=== PATIENT | female | born 1960 | race Caucasian/White ===

== ENCOUNTER → 2018-07-02 15:31 | Outpatient (CLI) | payer OTHER, MEDICAID, SELFPAY ==
--- NOTE | 2018-07-02 15:33 | DI.RAD.S_ITS ---
PROCEDURE: XR ACUTE ABDOMEN SERIES INDICATIONS: abdominal pain TECHNIQUE: One view chest and two views of the abdomen were acquired. COMPARISON: [facility], CHEST 2 VIEW, 08/07/2009, 15:39. [facility], , CHEST 1 VIEW, 05/09/2013, 6:08. FINDINGS: Surgical changes and devices: None. Chest: Lungs are abnormal with a chronic mild interstitial prominence. Heart size is normal. No pleural effusions. No pneumoperitoneum. Abdomen: Bowel gas pattern is abnormal with generalized colonic obstipation is moderate in severity. No suspicious calcifications. Visualized solid organ contours appear normal. Bones: No suspicious bony lesions. IMPRESSION: Generalized colonic obstipation, moderate in severity, chronic mild interstitial prominence within the lung parenchyma. No sign of cardiomegaly. Dictated by: Maverick Maldonado M.D. on 07/02/2018 at 16:17 Approved by: Maverick Maldonado M.D. on 07/02/2018 at 16:18
[2018-07-02 16:08] LABS: Add Manual Diff / Slide Review NO; Basophils Absolute Auto 0 /uL (0-100); Basophils Percent Auto 0.5 % (0-2); Eosinophils Absolute Auto 300 /uL (0-450); Eosinophils Percent Auto 3.3 % (2-4); Hematocrit 41.4 % (36-46); Hemoglobin 13.8 g/dL (12.0-16.0); Lymphocytes Absolute Auto 2900 /uL (1100-4500); Lymphocytes Percent Auto 31.2 % (25-40); Mean Corpuscular HGB Conc 33.4 % (30-36); Mean Corpuscular Hemoglobin 31.3 PG (26-34); Mean Corpuscular Volume 93.9 fL (80-100); Monocytes Absolute Auto 600 /uL (0-900); Monocytes Percent Auto 6.1 % (3-14); Neutrophils Absolute Auto 5500 /uL (1500-7000); Neutrophils Percent Auto 58.9 % (50-75); Platelet Count 240 X10^3/uL (150-400); Red Blood Cell Count 4.41 X10^6/uL (4.0-5.2); Red Cell Distribution Width 14.8 % (11.6-14.8); White Blood Cell Count 9.3 X10^3/uL (4.5-11.0)
[2018-07-02 16:35] LABS: Alanine Aminotransferase 37 IU/L (9-52); Albumin 4.4 g/dL (3.5-5.0); Albumin Globulin Ratio 1.1 (1.0-2.8); Alkaline Phosphatase 121 U/L (38-126); Amylase 38 U/L (30-110); Aspartate Aminotransferase 36 IU/L (14-36); Bilirubin Total 0.1 mg/dL (0.2-1.3); Blood Urea Nitrogen 18 mg/dL (7-17); Calcium 9.6 mg/dL (8.4-10.2); Carbon Dioxide 30 mmol/L (22-32); Chloride 104 mmol/L (98-107); Estimated Glomerular Filt Rate 56.9 mL/min (>60); Globulin 4.1 g/dL (1.7-4.1); Glucose 128 mg/dL (70-100); HEMOLYSIS < 15 (0-50); Lipase 69 U/L (23-300); Potassium 4.3 mmol/L (3.4-5.1); Sodium 145 mmol/L (137-145); Total Protein 8.5 g/dL (6.3-8.2)
[2018-07-02 16:37] LABS: C-Reactive Protein Quant < 0.5 mg/dL (<1.0)
[2018-07-02 17:04] LABS: Erythrocyte Sedimentation Rate 46 MM/HR (0-20); TSH w/ Reflex to FT4 0.34 uIU/mL (0.47-4.68)
== END ==
PROVIDERS: PCP Internal Medicine; Visit Provider Internal Medicine
DX: R10.9 Unspecified abdominal pain (principal); K59.00 Constipation, unspecified; J84.9 Interstitial pulmonary disease, unspecified
CPT/HCPCS: 36415; 74022; 80053; 82150; 83690; 84439; 84443; 85025; 85651; 86140

== ENCOUNTER 2018-07-06 17:38 | Emergency (ER) | payer OTHER, MEDICAID, SELFPAY ==
[2018-07-06 17:50] VITALS: BP 104/73; PULSE 99; RESP 18; TEMP 38.8; O2SAT 91; BMI 22.6
--- NOTE | 2018-07-06 17:54 | DI.RAD.S_ITS ---
PROCEDURE: XR CHEST 2V INDICATIONS: fever, cough, exposure to Flu, smoker TECHNIQUE: 2 views of the chest were acquired. COMPARISON: [facility], , CHEST 1 VIEW, 05/09/2013, 6:08. [facility], , CHEST 2 VIEW, 06/05/2017, 10:27. FINDINGS: Surgical changes and devices: None. Lungs and pleura: No pleural effusions or pneumothorax. Lungs are clear. Mediastinum: Mediastinal contours are normal. Heart size is normal. Bones and chest wall: No suspicious bony abnormalities. Soft tissues appear unremarkable. IMPRESSION: No acute cardiopulmonary findings. Dictated by: Yuli Rivas M.D. on 07/06/2018 at 18:38 Approved by: Yuli Rivas M.D. on 07/06/2018 at 18:39
[2018-07-06 18:01] VITALS: TEMP 38.8
[2018-07-06] MEDS: ACETAMINOPHEN 325 MG TABLET 975 MG PO (18:01)
[2018-07-06 19:33] VITALS: BP 113/62; PULSE 73; RESP 14; TEMP 37.4; O2SAT 93
--- NOTE | 2018-07-06 19:40 | ED.FEVER ---
HPI - Fever <FAHAD Aguilar - Last Filed: 07/06/18 22:34> General Chief Complaint: Fever Stated Complaint: told to be checked for the flu Time Seen by Provider: 07/06/18 19:09 Source: patient Mode of arrival: ambulatory Limitations: no limitations History of Present Illness HPI Narrative: 58-year-old female with history COPD this is an everyday smoker here for complaint of cold and flu-like symptoms over the past 3 days. Her has been diagnosed with influenza and is admitted for supportive care. She reports that she has had fever and chills with cough nasal congestion headache and generalized malaise over the past 3 days. She is tolerating p.o. intake with no vomiting. She denies any stressors or relievers of her discomfort her symptoms. No other concerns or complaints Related Data Previous Rx's Medication Instructions Recorded gabapentin 600 mg tablet 900 mg PO TID #270 tab 11/06/17 hydrocodone 10 mg-acetaminophen 1 - 2 tab PO Q6HP PRN #240 tab 06/20/18 325 mg tablet lorazepam 1 mg tablet 1 - 2 mg PO QIDP PRN #180 tab 06/20/18 citalopram 40 mg tablet 40 mg PO QDAY #90 tab 06/22/18 Allergies Allergy/AdvReac Type Severity Reaction Status Date / Time No Known Drug Allergies Allergy Unknown Verified 07/06/18 17:53 [NO KNOWN DRUG ALLERGIES] Review of Systems <FAHAD Aguilar - Last Filed: 07/06/18 22:34> Constitutional Reports chills, Reports fever(s), Denies lethargy and Denies weakness Eyes Denies change in vision, Denies eye discharge, Denies irritation and Denies loss of vision ENT Ears, Nose, Mouth, and Throat: Reports nasal congestion, Reports nasal discharge and Denies throat swelling Cardiovascular Denies chest pain, Denies irregular heart rhythm, Denies lightheadedness, Denies palpitations and Denies orthopnea Respiratory Reports cough and Denies wheezing Gastrointestinal Gastrointestinal: Denies abdominal pain, Denies change in bowel habits, Denies diarrhea, Denies nausea and Denies vomiting Genitourinary Denies hematuria, Denies flank pain, Denies urinary incontinence and Denies urinary urgency Musculoskeletal Denies back pain, Denies muscle weakness, Denies numbness and Denies tingling Integumentary/Breasts Denies pruritus, Denies erythema, Denies rash and Denies wounds Neurologic Denies confusion, Denies loss of vision, Denies numbness, Denies tingling and Denies weakness Psychiatric Denies anxiety, Denies confusion, Denies depression, Denies homicidal ideation and Denies suicidal ideation Endocrine Denies palpitations Hematologic/Lymphatic Denies easy bruising Allergic/Immunologic Denies urticaria, Denies throat swelling and Denies wheezing Exam <FAHAD Aguilar - Last Filed: 07/06/18 22:34> Initial Vital Signs Initial Vital Signs: Vital Signs Temperature 101.8 F H 07/06/18 17:50 Pulse Rate 99 H 07/06/18 17:50 Respiratory Rate 18 07/06/18 17:50 Blood Pressure 104/73 07/06/18 17:50 Pulse Oximetry 91 07/06/18 17:50 Const General: cooperative and well developed Nutritional Appearance: well nourished Orientation: alert, awake, oriented x3 and not confused HENMT Mouth: oral mucosae normal and moist mucous membranes Throat: posterior oropharynx normal Eyes Conjunctivae: conjunctivae normal Sclera: sclerae normal Pupils: PERRL EOM: EOM intact bilaterally Neck Neck: normal visual inspection, trachea midline, No lymphadenopathy, No midline deformity and No JVD Lymphatic: No lymphedema Chest Chest: normal inspection of the chest Resp Effort & Inspection: normal respiratory effort, able to speak in complete sentences, no respiratory distress and no use of accessory muscles Auscultation: clear to auscultation bilaterally, no rales, no rhonchi and no wheezes Cardio Rate: regular rate Rhythm: regular rhythm Heart Sounds: no click, no gallops, no murmurs and no rubs Pulses: normal peripheral pulses Skin General: no rashes or lesions noted, No jaundice and No petechiae Neuro General: alert, oriented x3, gait normal and no focal motor deficits Speech: speech normal <Ava Salazar DO - Last Filed: 07/07/18 04:06> Initial Vital Signs Initial Vital Signs: Vital Signs Temperature 101.8 F H 07/06/18 17:50 Pulse Rate 99 H 07/06/18 17:50 Respiratory Rate 18 07/06/18 17:50 Blood Pressure 104/73 07/06/18 17:50 Pulse Oximetry 91 07/06/18 17:50 Course <FAHAD Aguilar - Last Filed: 07/06/18 22:34> Orders Ordered: Discontinued Medications Acetaminophen (Tylenol) 975 mg PO NOW ONE Stop: 07/06/18 17:56 Last Admin: 07/06/18 18:01 Dose: 975 mg Vital Signs - 8 hr 07/06/18 17:50 07/06/18 18:01 07/06/18 19:33 Temperature 101.8 F H 102 F H 99.4 F Pulse Rate 99 H 73 Respiratory Rate 18 14 Blood Pressure 104/73 Blood Pressure [Left Arm] 113/62 Pulse Oximetry 91 93 <Ava Salazar DO - Last Filed: 07/07/18 04:06> Orders Ordered: Discontinued Medications Acetaminophen (Tylenol) 975 mg PO NOW ONE Stop: 07/06/18 17:56 Last Admin: 07/06/18 18:01 Dose: 975 mg Vital Signs - 8 hr 07/06/18 17:50 07/06/18 18:01 07/06/18 19:33 Temperature 101.8 F H 102 F H 99.4 F Pulse Rate 99 H 73 Respiratory Rate 18 14 Blood Pressure 104/73 Blood Pressure [Left Arm] 113/62 Pulse Oximetry 91 93 MDM - Fever <FAHAD Aguilar - Last Filed: 07/06/18 22:34> Lab Data Lab Results 07/06/18 Range/Units 17:56 Influenza A & B (PCR) Positive, type a A (Negative) Imaging Data Chest x-ray: Radiologist's impression: [address] [address] XRay Report Signed Patient: Jacquelyn Dotson JMR#: [id number] : 1960Acct:[id number] Age/Sex: 58 / FDate of Service: 07/06/18 Loc: ED Accession Number: [id number] Procedure: XR chest 2V Ordering Provider: David Garcia D.O. PROCEDURE: XR CHEST 2V INDICATIONS: fever, cough, exposure to Flu, smoker TECHNIQUE: 2 views of the chest were acquired. COMPARISON: [facility], CHEST 1 VIEW, 05/09/2013, 6:08. [facility], CHEST 2 VIEW, 06/05/2017, 10:27. FINDINGS: Surgical changes and devices: None. Lungs and pleura: No pleural effusions or pneumothorax. Lungs are clear. Mediastinum: Mediastinal contours are normal. Heart size is normal. Bones and chest wall: No suspicious bony abnormalities. Soft tissues appear unremarkable. IMPRESSION: No acute cardiopulmonary findings. Dictated by: Yuli Rivas M.D. on 07/06/2018 at 18:38 Approved by: Yuli Rivas M.D. on 07/06/2018 at 18:39 [facility] Narrative Medical decision making narrative: Chest x-ray was obtained was negative for any acute findings. Influenza swab was obtained and is positive for flu A. Her vital signs were stable. Patient no acute distress with normal exam. Patient is 3 days past started symptoms Tamiflu is not indicated at this time. Supportive care of plenty of fluids and rest Tylenol Motrin as needed for any discomfort. Saline irrigation or hot showers to help with congestion follow up with primary care provider in 1 week. Return emergency room for worsening symptoms. <Ava Salazar DO - Last Filed: 07/07/18 04:06> Lab Data Lab Results 07/06/18 Range/Units 17:56 Influenza A & B (PCR) Positive, type a A (Negative) Discharge Plan Departure Patient Disposition: Home Clinical Impression: Influenza A Discharge Date/Time: 07/06/18 20:15 Interventions: ED Discharge Assessment Last Done: 07/06/18 20:15 Instructions: DI for Influenza -- Adult Activity Restrictions/Additional Instructions: Chest x-ray was obtained was negative for any acute findings. Influenza swab was obtained was positive for influenza A. Supportive care with plenty of fluids and rest. [id number] Tylenol or Motrin as needed for discomfort. Saline irrigation to nasal passages to help with congestion may also use hot showers. Follow up with her primary care provider 1 week. Return emergency room for any worsening symptoms. Prescriptions: No Action gabapentin [Neurontin] 600 mg tablet 900 mg PO TID Qty: 270 RF: 3 hydrocodone-acetaminophen 10-325 mg tablet 1 - 2 tab PO Q6HP PRN (Reason: pain) Qty: 240 RF: 0 lorazepam 1 mg tablet 1 - 2 mg PO QIDP PRN (Reason: anxiety) Qty: 180 RF: 0 citalopram 40 mg tablet 40 mg PO QDAY Qty: 90 RF: 0 Referrals: Kamaljit Frankel MD [Primary Care Provider] - <Ava Salazar DO - Last Filed: 07/07/18 04:06> Cosign ED Attending Maribethature Attestation: I was immediately available in the department for consultation. Documentation has been reviewed. I agree with assessment and plan.
[2018-07-06 20:00] VITALS: BP 104/73; PULSE 73; RESP 14; TEMP 37.4; O2SAT 93; BMI 22.6
--- NOTE | 2018-07-06 20:00 | ED_ITS ---
HPI - Fever <FAHAD Aguilar - Last Filed: 07/06/18 22:34> General Chief Complaint: Fever Stated Complaint: told to be checked for the flu Time Seen by Provider: 07/06/18 19:09 Source: patient Mode of arrival: ambulatory Limitations: no limitations History of Present Illness HPI Narrative: 58-year-old female with history COPD this is an everyday smoker here for complaint of cold and flu-like symptoms over the past 3 days. Her has been diagnosed with influenza and is admitted for supportive care. She reports that she has had fever and chills with cough nasal congestion headache and generalized malaise over the past 3 days. She is tolerating p.o. intake with no vomiting. She denies any stressors or relievers of her discomfort her symptoms. No other concerns or complaints Related Data Previous Rx's Medication Instructions Recorded gabapentin 600 mg tablet 900 mg PO TID #270 tab 11/06/17 hydrocodone 10 mg-acetaminophen 1 - 2 tab PO Q6HP PRN #240 tab 06/20/18 325 mg tablet lorazepam 1 mg tablet 1 - 2 mg PO QIDP PRN #180 tab 06/20/18 citalopram 40 mg tablet 40 mg PO QDAY #90 tab 06/22/18 Allergies Allergy/AdvReac Type Severity Reaction Status Date / Time No Known Drug Allergies Allergy Unknown Verified 07/06/18 17:53 [NO KNOWN DRUG ALLERGIES] Review of Systems <FAHAD Aguilar - Last Filed: 07/06/18 22:34> Constitutional Reports chills, Reports fever(s), Denies lethargy and Denies weakness Eyes Denies change in vision, Denies eye discharge, Denies irritation and Denies loss of vision ENT Ears, Nose, Mouth, and Throat: Reports nasal congestion, Reports nasal discharge and Denies throat swelling Cardiovascular Denies chest pain, Denies irregular heart rhythm, Denies lightheadedness, Denies palpitations and Denies orthopnea Respiratory Reports cough and Denies wheezing Gastrointestinal Gastrointestinal: Denies abdominal pain, Denies change in bowel habits, Denies diarrhea, Denies nausea and Denies vomiting Genitourinary Denies hematuria, Denies flank pain, Denies urinary incontinence and Denies urinary urgency Musculoskeletal Denies back pain, Denies muscle weakness, Denies numbness and Denies tingling Integumentary/Breasts Denies pruritus, Denies erythema, Denies rash and Denies wounds Neurologic Denies confusion, Denies loss of vision, Denies numbness, Denies tingling and Denies weakness Psychiatric Denies anxiety, Denies confusion, Denies depression, Denies homicidal ideation and Denies suicidal ideation Endocrine Denies palpitations Hematologic/Lymphatic Denies easy bruising Allergic/Immunologic Denies urticaria, Denies throat swelling and Denies wheezing Exam <FAHAD Aguilar - Last Filed: 07/06/18 22:34> Initial Vital Signs Initial Vital Signs: Vital Signs Temperature 101.8 F H 07/06/18 17:50 Pulse Rate 99 H 07/06/18 17:50 Respiratory Rate 18 07/06/18 17:50 Blood Pressure 104/73 07/06/18 17:50 Pulse Oximetry 91 07/06/18 17:50 Const General: cooperative and well developed Nutritional Appearance: well nourished Orientation: alert, awake, oriented x3 and not confused HENMT Mouth: oral mucosae normal and moist mucous membranes Throat: posterior oropharynx normal Eyes Conjunctivae: conjunctivae normal Sclera: sclerae normal Pupils: PERRL EOM: EOM intact bilaterally Neck Neck: normal visual inspection, trachea midline, No lymphadenopathy, No midline deformity and No JVD Lymphatic: No lymphedema Chest Chest: normal inspection of the chest Resp Effort & Inspection: normal respiratory effort, able to speak in complete sentences, no respiratory distress and no use of accessory muscles Auscultation: clear to auscultation bilaterally, no rales, no rhonchi and no wheezes Cardio Rate: regular rate Rhythm: regular rhythm Heart Sounds: no click, no gallops, no murmurs and no rubs Pulses: normal peripheral pulses Skin General: no rashes or lesions noted, No jaundice and No petechiae Neuro General: alert, oriented x3, gait normal and no focal motor deficits Speech: speech normal <Ava Salazar DO - Last Filed: 07/07/18 04:06> Initial Vital Signs Initial Vital Signs: Vital Signs Temperature 101.8 F H 07/06/18 17:50 Pulse Rate 99 H 07/06/18 17:50 Respiratory Rate 18 07/06/18 17:50 Blood Pressure 104/73 07/06/18 17:50 Pulse Oximetry 91 07/06/18 17:50 Course <FAHAD Aguilar - Last Filed: 07/06/18 22:34> Orders Ordered: Discontinued Medications Acetaminophen (Tylenol) 975 mg PO NOW ONE Stop: 07/06/18 17:56 Last Admin: 07/06/18 18:01 Dose: 975 mg Vital Signs - 8 hr 07/06/18 17:50 07/06/18 18:01 07/06/18 19:33 Temperature 101.8 F H 102 F H 99.4 F Pulse Rate 99 H 73 Respiratory Rate 18 14 Blood Pressure 104/73 Blood Pressure [Left Arm] 113/62 Pulse Oximetry 91 93 <Ava Salazar DO - Last Filed: 07/07/18 04:06> Orders Ordered: Discontinued Medications Acetaminophen (Tylenol) 975 mg PO NOW ONE Stop: 07/06/18 17:56 Last Admin: 07/06/18 18:01 Dose: 975 mg Vital Signs - 8 hr 07/06/18 17:50 07/06/18 18:01 07/06/18 19:33 Temperature 101.8 F H 102 F H 99.4 F Pulse Rate 99 H 73 Respiratory Rate 18 14 Blood Pressure 104/73 Blood Pressure [Left Arm] 113/62 Pulse Oximetry 91 93 MDM - Fever <FAHAD Aguilar - Last Filed: 07/06/18 22:34> Lab Data Lab Results 07/06/18 Range/Units 17:56 Influenza A & B (PCR) Positive, type a A (Negative) Imaging Data Chest x-ray: Radiologist's impression: [address] [address] XRay Report Signed Patient: Jacquelyn Dotson JMR#: [id number] : 1960Acct:[id number] Age/Sex: 58 / FDate of Service: 07/06/18 Loc: ED Accession Number: [id number] Procedure: XR chest 2V Ordering Provider: David Garcia D.O. PROCEDURE: XR CHEST 2V INDICATIONS: fever, cough, exposure to Flu, smoker TECHNIQUE: 2 views of the chest were acquired. COMPARISON: [facility], CHEST 1 VIEW, 05/09/2013, 6:08. [facility], CHEST 2 VIEW, 06/05/2017, 10:27. FINDINGS: Surgical changes and devices: None. Lungs and pleura: No pleural effusions or pneumothorax. Lungs are clear. Mediastinum: Mediastinal contours are normal. Heart size is normal. Bones and chest wall: No suspicious bony abnormalities. Soft tissues appear unremarkable. IMPRESSION: No acute cardiopulmonary findings. Dictated by: Yuli Rivas M.D. on 07/06/2018 at 18:38 Approved by: Yuli Rivas M.D. on 07/06/2018 at 18:39 [facility] Narrative Medical decision making narrative: Chest x-ray was obtained was negative for any acute findings. Influenza swab was obtained and is positive for flu A. Her vital signs were stable. Patient no acute distress with normal exam. Patient is 3 days past started symptoms Tamiflu is not indicated at this time. Supportive care of plenty of fluids and rest Tylenol Motrin as needed for any discomfort. Saline irrigation or hot showers to help with congestion follow up with primary care provider in 1 week. Return emergency room for worsening symptoms. <Ava Salazar DO - Last Filed: 07/07/18 04:06> Lab Data Lab Results 07/06/18 Range/Units 17:56 Influenza A & B (PCR) Positive, type a A (Negative) Discharge Plan Departure Patient Disposition: Home Clinical Impression: Influenza A Discharge Date/Time: 07/06/18 20:15 Interventions: ED Discharge Assessment Last Done: 07/06/18 20:15 Instructions: DI for Influenza -- Adult Activity Restrictions/Additional Instructions: Chest x-ray was obtained was negative for any acute findings. Influenza swab was obtained was positive for influenza A. Supportive care with plenty of fluids and rest. [id number] Tylenol or Motrin as needed for discomfort. Saline irrigation to nasal passages to help with congestion may also use hot showers. Follow up with her primary care provider 1 week. Return emergency room for any worsening symptoms. Prescriptions: No Action gabapentin [Neurontin] 600 mg tablet 900 mg PO TID Qty: 270 RF: 3 hydrocodone-acetaminophen 10-325 mg tablet 1 - 2 tab PO Q6HP PRN (Reason: pain) Qty: 240 RF: 0 lorazepam 1 mg tablet 1 - 2 mg PO QIDP PRN (Reason: anxiety) Qty: 180 RF: 0 citalopram 40 mg tablet 40 mg PO QDAY Qty: 90 RF: 0 Referrals: Kamaljit Frankel MD [Primary Care Provider] - <Ava Salazar DO - Last Filed: 07/07/18 04:06> Cosign ED Attending Maribethature Attestation: I was immediately available in the department for consultation. Documentation has been reviewed. I agree with assessment and plan.
== END 2018-07-06 20:15 | disposition home or self-care (01) ==
PROVIDERS: Emergency Medicine; Emergency Provider Nurse Practitioner Family; Family Provider Internal Medicine; PCP Internal Medicine
DX: J10.1 Influenza due to other identified influenza virus with other respiratory manifestations (principal)
CPT/HCPCS: 71046; 87400; 99283; 99284

== ENCOUNTER 2019-01-11 07:44 | Inpatient (IN) | payer OTHER, MEDICAID, SELFPAY ==
[2019-01-11] VITALS (24 sets, daily range): BP systolic 102–125; BP diastolic 45–90; PULSE 75–90; RESP 11–21; TEMP 27.3–36.9; O2SAT 87–100; BMI 24.3; BMI 23.5
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
[2019-01-11 07:56] LABS: Add Manual Diff / Slide Review NO; Basophils Absolute Auto 100 /uL (0-100); Basophils Percent Auto 0.6 % (0-2); Eosinophils Absolute Auto 500 /uL (0-450); Eosinophils Percent Auto 6.1 % (2-4); Hematocrit 41.6 % (36-46); Hemoglobin 14.1 g/dL (12.0-16.0); Lymphocytes Absolute Auto 3200 /uL (1100-4500); Lymphocytes Percent Auto 37.9 % (25-40); Mean Corpuscular HGB Conc 33.8 % (30-36); Mean Corpuscular Hemoglobin 31.3 PG (26-34); Mean Corpuscular Volume 92.6 fL (80-100); Monocytes Absolute Auto 800 /uL (0-900); Neutrophils Absolute Auto 3800 /uL (1500-7000); Neutrophils Percent Auto 45.4 % (50-75); Platelet Count 228 X10^3/uL (150-400); Red Blood Cell Count 4.49 X10^6/uL (4.0-5.2); Red Cell Distribution Width 14.1 % (11.6-14.8); White Blood Cell Count 8.4 X10^3/uL (4.5-11.0)
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
[2019-01-11 08:05] LABS: Acetaminophen 15 ug/mL (10-30); Alanine Aminotransferase 19 IU/L (9-52); Albumin 4.7 g/dL (3.5-5.0); Alkaline Phosphatase 141 U/L (38-126); Aspartate Aminotransferase 34 IU/L (14-36); BUN Creatinine Ratio 8.9 (6-22); Bilirubin Total 0.4 mg/dL (0.2-1.3); Bilirubin Unconjugated 0.2 mg/dL (0.0-1.1); Blood Urea Nitrogen 16 mg/dL (7-17); Calcium 10.1 mg/dL (8.4-10.2); Carbon Dioxide 35 mmol/L (22-32); Chloride 101 mmol/L (98-107); Estimated Glomerular Filt Rate 28.9 mL/min (>60); Ethanol (ETOH) < 10 mg/dL; Globulin 4.8 g/dL (1.7-4.1); Glucose 106 mg/dL (70-100); HEMOLYSIS < 15 (0-50); Potassium 4.1 mmol/L (3.4-5.1); Salicylate < 1.0 mg/dL (<20); Sodium 145 mmol/L (137-145); Total Protein 9.5 g/dL (6.3-8.2)
[2019-01-11] MEDS: ALBUTEROL/IPRATROPIUM 3 ML AMPUL INH ×3 (08:08→20:44)
[2019-01-11] MEDS: ALBUTEROL 2.5 MG/3 ML NEB (ADULT) INH ×3 (08:23→16:46)
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
[2019-01-11] MEDS: methylPREDNISolone 125 MG/2 ML VIAL IV (08:53)
[2019-01-11] MEDS: SODIUM CHLORIDE 0.9% 1,000 ML 1000 ML IV (09:06)
[2019-01-11 09:16] LABS: Fractionated Inspired Oxygen 0.26; HCO3 ABG 33 mmol/L (22-26); Oxygen Saturation ABG 89 % (95-100); PO2 ABG 65 mmHg (80-100); TCO2 ABG 35 mmol/L (21-31)
[2019-01-11 10:01] LABS: Urine Amphetamines Negative (Negative); Urine Barbiturates Negative (Negative); Urine Benzodiazepines Positive (Negative); Urine Cocaine Negative (Negative); Urine MDMA Negative (Negative); Urine Methadone Negative (Negative); Urine Methamphetamines Negative (Negative); Urine Morphine/Opi cutoff 2000 Positive (Negative); Urine Oxycodone Positive (Negative); Urine Phencyclidine Negative (Negative); Urine Tetrahydrocannabinol Negative (Negative); Urine Tricyclic Antidepressant Negative (Negative)
[2019-01-11 10:49] LABS: Creatine Kinase 134 U/L (30-135); Magnesium 2.2 mg/dL (1.6-2.3)
[2019-01-11 11:00] LABS: Troponin I < 0.012 ng/mL (0.01-0.034)
[2019-01-11 11:04] LABS: Creatine Kinase MB 1.31 ng/mL (<2.37)
[2019-01-11 11:08] LABS: Procalcitonin < 0.05 ng/mL (<0.5)
[2019-01-11 11:10] LABS: B Type Natriuretic Peptide < 100 (<100)
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
[2019-01-11 13:34] LABS: Bacteria Urine None Seen; RBC Urine None Seen (0-5/HPF); WBC Urine None Seen (0-5/HPF)
[2019-01-11 13:48] LABS: Squamous Epithelial Cell Urine 0-1 /HPF (0-5/HPF)
[2019-01-11 13:49] LABS: Culture Indicated Urine Cult Not Indicated; Hyaline Casts Urine 1-5/LPF
[2019-01-11] MEDS: AZITHROMYCIN 500 MG in DEXTROSE 5% IN WATER 250 ML IV (13:56)
[2019-01-11] MEDS: CITALOPRAM 20 MG TABLET 40 MG PO (13:56)
[2019-01-11] MEDS: DEXTROSE 5%-0.45% NS 1,000 ML 100 ML IV (13:56)
[2019-01-11] MEDS: GABAPENTIN 300 MG CAPSULE 900 MG PO (13:57)
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
[2019-01-11 15:29] LABS: pH ABG 7.25 (7.35-7.45)
[2019-01-11 15:30] LABS: PCO2 ABG 59.1 mmHg (35-45)
[2019-01-11 15:31] LABS: HCO3 ABG 26 mmol/L (22-26); Oxygen Saturation ABG 94 % (95-100); PO2 ABG 83 mmHg (80-100); TCO2 ABG 27 mmol/L (21-31)
[2019-01-11 15:32] LABS: Fractionated Inspired Oxygen 29
[2019-01-11] MEDS: BECLOMETHASONE 80 MCG INH 10.6 GM 2 PUFF INH (16:46)
[2019-01-11] MEDS: methylPREDNISolone 125 MG/2 ML VIAL 60 MG IV (18:20)
[2019-01-12] VITALS (26 sets, daily range): BP systolic 99–156; BP diastolic 45–93; PULSE 68–96; RESP 12–27; TEMP 30.8–37.4; O2SAT 75–99
[2019-01-12] MEDS: methylPREDNISolone 125 MG/2 ML VIAL 60 MG IV ×5 (00:03→23:46)
[2019-01-12] MEDS: DEXTROSE 5%-0.45% NS 1,000 ML 100 ML IV (00:58)
[2019-01-12 05:10] LABS: Add Manual Diff / Slide Review NO; Basophils Absolute Auto 100 /uL (0-100); Eosinophils Absolute Auto 0 /uL (0-450); Eosinophils Percent Auto 0.1 % (2-4); Hematocrit 36.9 % (36-46); Hemoglobin 12.3 g/dL (12.0-16.0); Lymphocytes Absolute Auto 1200 /uL (1100-4500); Lymphocytes Percent Auto 12.5 % (25-40); Mean Corpuscular HGB Conc 33.3 % (30-36); Mean Corpuscular Hemoglobin 30.9 PG (26-34); Mean Corpuscular Volume 92.9 fL (80-100); Monocytes Absolute Auto 200 /uL (0-900); Monocytes Percent Auto 1.7 % (3-14); Neutrophils Absolute Auto 8000 /uL (1500-7000); Neutrophils Percent Auto 84.7 % (50-75); Platelet Count 183 X10^3/uL (150-400); Red Blood Cell Count 3.97 X10^6/uL (4.0-5.2); Red Cell Distribution Width 14.1 % (11.6-14.8); White Blood Cell Count 9.4 X10^3/uL (4.5-11.0)
[2019-01-12 05:20] LABS: BUN Creatinine Ratio 14.4 (6-22); Blood Urea Nitrogen 13 mg/dL (7-17); Calcium 9.6 mg/dL (8.4-10.2); Carbon Dioxide 30 mmol/L (22-32); Chloride 107 mmol/L (98-107); Estimated Glomerular Filt Rate > 60.0 mL/min (>60); Glucose 178 mg/dL (70-100); HEMOLYSIS < 15 (0-50); Potassium 3.8 mmol/L (3.4-5.1); Sodium 143 mmol/L (137-145)
[2019-01-12] MEDS: ALBUTEROL/IPRATROPIUM 3 ML AMPUL INH ×3 (05:58→19:44)
[2019-01-12] MEDS: BECLOMETHASONE 80 MCG INH 10.6 GM 2 PUFF INH ×2 (07:55→19:44)
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
[2019-01-12] MEDS: CITALOPRAM 20 MG TABLET 40 MG PO (09:10)
[2019-01-12] MEDS: GABAPENTIN 300 MG CAPSULE 900 MG PO ×2 (09:10→19:57)
[2019-01-12] MEDS: MAGNESIUM HYDROXIDE 30 ML UDC PO (09:11)
[2019-01-12] MEDS: ENOXAPARIN 30 MG/0.3 ML SYRINGE SUBCUT (09:11)
--- NOTE | 2019-01-12 12:06 | PC.NURSE ---
Received pt resting in bed on bipap. Awakens to verbal stimuli for assessment. Transitioned to 2L NC in order for pt to eat breakfast and take AM meds. Pt ate a few bites of fruit and swallowed pills whole with water no problem. SBA to BSC. 1000 placed back on bipap as pt was drowsy. Pt tolerated bipap for about 15 minutes but then began picking at mask and frequently readjusting. Attempted to reposition mask and loosen straps but ineffective in helping pt better tolerate bipap. Placed pt on O2 2L NC and notified RT. RT obtained an ABG per protocol after pt on 2L for 1 hour and 20 min (see labs). Pt is drowsy but easily awakens to verbal stimuli and answering orientation questions appropriately with clear speech. Will monitor.
[2019-01-12 12:09] LABS: Fractionated Inspired Oxygen 28; HCO3 ABG 29 mmol/L (22-26); Oxygen Saturation ABG 91 % (95-100); PCO2 ABG 43.6 mmHg (35-45); PO2 ABG 60 mmHg (80-100); TCO2 ABG 31 mmol/L (21-31); pH ABG 7.44 (7.35-7.45)
[2019-01-12] MEDS: AZITHROMYCIN 500 MG in DEXTROSE 5% IN WATER 250 ML IV (13:17)
[2019-01-12] MEDS: ACETAMINOPHEN 325 MG TABLET 650 MG PO ×2 (13:29→23:09)
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
--- NOTE | 2019-01-12 17:15 | PC.NURSE ---
Addendum entered by Maty Leblanc R.N. 01/12/19 17:54: 1750 - Daughter called back this nurse. Stated that when she was talking on the phone to the patient just now that she asked the patient how many lorazepam she had taken to which the patient did not answer. Then she stated to the patient You can't do that. Per the daughter the patient responded I can if I don't want to be here anymore. Dr. Barone updated on patient's statements to daughter. Placed patient on suicide precautions including 1:1. Coordinator updated. Original Note: [id number] - probation and parole officer Talisha arrived to unit to do a welfare check on patient. Stated that they had received a call from the patient's family member with about a possibly suicidal message they had received from the patient on Monday. Patient agreeingly talked to combatant diver officer. Denied any suicidal thoughts to officer and stated that she does not remember anything from yesterday. After officer left the patient's daughter, Briana, called the unit and inquired about patient. Before talking with daughter this nurse clarified with patient that daughter may receive information about her. Updated daughter on patient's status. Daughter stated that she had received a message from the patient on monday stating goodbye my sweet daughter and grandaughter, I don't know how long I can continue. Patient then talked with daughter as well. Dr. Barone updated on all of this information. Stated to make sure that patient has a social service consult. Discussed suicide precautions with Dr. Barone. Physician stated that a constant 1:1 observation was not required at this time. Patient remains ICU status.
--- NOTE | 2019-01-12 18:10 | RT ---
Patient just put on 1:1 for suicidal ideations. Withdrawn and turned away from door. Declining breathing treatment at this time but may take later with her Qvar at 2100.
[2019-01-13] VITALS (9 sets, daily range): BP systolic 126–152; BP diastolic 67–79; PULSE 51–80; RESP 12–18; TEMP 36.6–37.1; O2SAT 92–98
[2019-01-13 05:23] LABS: Add Manual Diff / Slide Review NO; Basophils Absolute Auto 0 /uL (0-100); Basophils Percent Auto 0.2 % (0-2); Eosinophils Absolute Auto 0 /uL (0-450); Hematocrit 37.9 % (36-46); Hemoglobin 12.8 g/dL (12.0-16.0); Lymphocytes Absolute Auto 1400 /uL (1100-4500); Lymphocytes Percent Auto 7.6 % (25-40); Mean Corpuscular HGB Conc 33.7 % (30-36); Mean Corpuscular Hemoglobin 30.7 PG (26-34); Monocytes Absolute Auto 400 /uL (0-900); Monocytes Percent Auto 2.3 % (3-14); Neutrophils Absolute Auto 16500 /uL (1500-7000); Neutrophils Percent Auto 89.9 % (50-75); Platelet Count 220 X10^3/uL (150-400); Red Blood Cell Count 4.16 X10^6/uL (4.0-5.2); Red Cell Distribution Width 14.6 % (11.6-14.8)
[2019-01-13 05:28] LABS: White Blood Cell Count 18.3 X10^3/uL (4.5-11.0)
[2019-01-13 05:31] LABS: Alanine Aminotransferase 22 IU/L (9-52); Albumin 4.1 g/dL (3.5-5.0); Alkaline Phosphatase 115 U/L (38-126); Aspartate Aminotransferase 27 IU/L (14-36); BUN Creatinine Ratio 22.2 (6-22); Bilirubin Total 0.3 mg/dL (0.2-1.3); Blood Urea Nitrogen 20 mg/dL (7-17); Calcium 10.3 mg/dL (8.4-10.2); Carbon Dioxide 31 mmol/L (22-32); Chloride 110 mmol/L (98-107); Estimated Glomerular Filt Rate > 60.0 mL/min (>60); Glucose 138 mg/dL (70-100); HEMOLYSIS < 15 (0-50); Sodium 146 mmol/L (137-145); Total Protein 8.1 g/dL (6.3-8.2)
[2019-01-13] MEDS: SODIUM CHLORIDE 0.9% FLUSH 10 ML IV (06:03)
[2019-01-13] MEDS: methylPREDNISolone 125 MG/2 ML VIAL 60 MG IV (06:03)
[2019-01-13] MEDS: BECLOMETHASONE 80 MCG INH 10.6 GM 2 PUFF INH ×2 (09:12→18:08)
[2019-01-13] MEDS: ALBUTEROL 2.5 MG/3 ML NEB (ADULT) INH (09:12)
[2019-01-13] MEDS: ENOXAPARIN 40 MG/0.4 ML SYRINGE SUBCUT (09:22)
[2019-01-13] MEDS: GABAPENTIN 300 MG CAPSULE 900 MG PO ×3 (09:22→21:01)
[2019-01-13] MEDS: CITALOPRAM 20 MG TABLET 40 MG PO (09:23)
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
--- NOTE | 2019-01-13 10:49 | P.PN_ITS ---
Subjective Date Patient Seen: 01/13/19 Time Patient Seen: 10:47 Interval history: Patient seen and evaluated. He yesterday afternoon patient made comments to daughter living in another state about suicidal ideations and thoughts and feelings of hopelessness. This was brought to the attention to the nurse after the daughter called here. Patient currently denies any suicidality problems as far as that goes intent to harm herself or others. Patient does say she has a longstanding history of depression. She currently had a break-up with partner. She does not really want us to have contact with her family. She is currently on precautions for suicidality. As far as mental status goes much improved. Coherent history at this time point. She states she feels fine. She states that she does not have any suicidal ideations. She is not sure what she texted her daughter and why her daughter would be concerned about her mental health. She has no concerns right now. She says she has depression. But she is not suicidal she does not want to harm herself or others she denies taking any medication to harm herself that caused hospital admission. As far as her breathing goes. She still has a cough. She still has increased work of breathing. Exam Vital Signs (past 8 hours): - 01/13/19 04:49 01/13/19 08:00 01/13/19 09:13 Temperature 98.2 F 97.9 F Pulse Rate 58 L 76 80 Respiratory Rate 12 16 12 Blood Pressure 138/67 152/79 H Pulse Oximetry 95 95 96 Fraction of Inspired Oxygen 0.30 Oxygen Delivery Method Room Air Oxygen Flow Rate 1 Narrative Exam Narrative: Gen.: Alert oriented HEENT: Pupils equal round and reactive or mucosa is moist Cardio: S1-S2 regular rate and rhythm no murmurs appreciated. Respiratory: Increased work of breathing. Bilateral scattered inspiratory and expiratory wheezes Abdomen: Soft nontender no rebound or guarding no liver spleen enlargement no appreciable hernias Extremities: Full range of motion no appreciable weakness no cyanosis or edema. Neurologic: Grossly intact. Objective Labs Result Diagrams: 01/13/19 04:43 01/13/19 04:43 Labs: Laboratory Results - last 24 hr 01/12/19 01/13/19 01/13/19 11:40 04:43 04:43 WBC 18.3 H D RBC 4.16 Hgb 12.8 Hct 37.9 MCV 91.0 MCH 30.7 MCHC 33.7 RDW 14.6 Plt Count 220 Neut % (Auto) 89.9 H Lymph % (Auto) 7.6 L [place] % (Auto) 2.3 L Eos % (Auto) 0.0 L Baso % (Auto) 0.2 Neut # (Auto) 32815 H Lymph # (Auto) 1400 [place] # (Auto) 400 Eos # (Auto) 0 Baso # (Auto) 0 ABG pH 7.44 ABG pCO2 43.6 ABG pO2 60 L ABG HCO3 29 H ABG Total CO2 31 ABG O2 Saturation 91 L ABG Base Excess 5.0 H FiO2 28 Sodium 146 H Potassium 4.0 Chloride 110 H Carbon Dioxide 31 BUN 20 H Creatinine 0.90 Estimated GFR > 60.0 BUN/Creatinine Ratio 22.2 H Glucose 138 H Calcium 10.3 H Total Bilirubin 0.3 AST 27 ALT 22 Alkaline Phosphatase 115 Total Protein 8.1 Albumin 4.1 Globulin 4.0 Albumin/Globulin Ratio 1.0 Assessment & Plan Assessment & Plan narrative: Altered mental status with somnolence. Consistent with encephalopathy due to underlying narcotics and benzodiazepines. Patient's mental status is back at baseline. Possible suicidality. Patient denies any symptoms of suicidal ideations thoughts. Has a history of depression. Daughter reported her that she sent her a text staying that she was suicidal. At this point patient denies any symptoms at all whatsoever says she is fine she would not harm herself or others. She is currently on precautions as far as this goes. We will provide and obtain a behavioral health consultation. Acute respiratory failure. Patient's O2 sub stabilized. Last ABG was back to normal. Mildly hypoxic still. On and off of oxygen via nasal cannula. Acute kidney injury. Resolved. COPD with acute exacerbation. Improving. Will place her on oral steroids. Oral antibiotics continue with nebulizers. Hopefully in the next 24 hours her lung status will improve enough that she could potentially be discharge barring any concerns with mental health. Chronic pain syndrome. Pain medication on hold at this point.. Depression. Patient on citalopram. Continue with current antidepressants. Question concerns due to her underlying mental health about suicidality behavioral health evaluation. Disposition and plan. Continue inpatient. Decrease level of care. Stop telemetry monitoring. IV steroids IV antibiotics. Continue on precautions for mental health. This point she is medically stable for behavioral health evaluation. Hopefully she can be discharged from a medical standpoint tomorrow will see what behavioral health says today. At this point she gets denies any suicidal thoughts or ideations.
--- NOTE | 2019-01-13 13:36 | RT ---
Patient being seen by mental health professional. Informed RN Inocencio Topete that I would memo her 1pm treatment as not done as I feel this consultation is extremely important to the patient's future well-being and to get her connected with the appropriate resources. Let RN know that patient can have a prn treatment at any time and that the patient's next scheduled treatment is at 6pm.
--- NOTE | 2019-01-13 14:08 | PC.NURSE ---
Pt has been AAO x3 and making needs known with clear speech. She is able to get OOB independently and ambulate around the nurses station without AD on RA without shortness of breath. Her gait is steady. She is maintaining O2 sats of 93-96% on RA. Occasional scattered wheezing noted but much improved compared to this RNs 01/12/19 assessment. She continues to deny suicidal ideation/attempt despite reported family concerns. She does state I just want to go home. Spoke with Dr. Barone on rounds this AM regarding labs, VS, requiring no O2, as well as SI/attempt denial per pt. Reported pt wanted to go home. Dr. Barone states pt is near medical stability and requests [facility] be dispatched to evaluate. Notified OUTSIDE SALES ADVERTISING EXECUTIVEJesisca Robb to bedside at 1415. Evaluated pt with s/o Myles at bedside. [facility] states he will not detain pt at this time. Updated OUTSIDE SALES ADVERTISING EXECUTIVE.
--- NOTE | 2019-01-13 17:48 | PC.NURSE ---
Addendum entered by Kanwal Lui R.N. 01/13/19 21:18: 2100 - Pt resting in bed. S.O. in room. Pt pleasant and conversive. Declines snack with HS meds. Reports headache improved following APAP. Call light in reach. Addendum entered by Kanwal Lui R.N. 01/13/19 19:11: 1900 - Following meeting with ED transitions rn care coordinator. Pt up ambulating in unit. SBA with CONTINUOUS IMPROVEMENT FACILITATOR. Reports headache 3 of 10, apap given. Original Note: 1620 - Pt asking questions r/t possible discharge this evening. Reviewed treatment plan and CM report that workup for outpatient resources will take place in a.m. Pt reports that Dr. Barone indicated possible d/c this evening, however pt is agreeable to stay until completion of discharge plan tomorrow. Pt denies suicidal ideation. Discussed smoking ceasation, pt reports that she has never attempted to quit smoking, but is considering it. Educated to safety and call light use. Monitor.
[2019-01-13] MEDS: ACETAMINOPHEN 325 MG TABLET 650 MG PO (19:09)
--- NOTE | 2019-01-13 19:09 | CM.SWNOTE ---
BLADE WORKER Note: Health Counselor was asked by SHADY Ruth to follow up with discharge plans. Met with pt to assess current situation. Pt is A/O, very pleasant and easy to engage. She denied and SI, thoughts of self-harm or HI. Pt reported that when she arrived at the hospital, she thought that her relationship of 19 years had ended. She reported that her fiance came to visit and they are doing ok. Upon further inquiry, she stated that she tends to get very emotional and that they had been arguing a lot of late Precipitant: Pt reported that she has been diagnosed with both anxiety and depressionand is prescribed medicaiton by her PCP, Dr Frankel. She informed [facility] that over the last 7-8 years both her parents and her 2 brothers have . Her youngest brother 2 months after her mother's in 2011. According to pt, his most likely was suicide, but the other brother in a vehicle accident in 1999. Her father in 2010. Pt reported that she is dealing with COPD, not able to work and does not fele that her current medications are addressing symptoms of anxiety and depression. Plan:Pt has [facility] Health Options/ Medicaid. BLADE WORKER provided information for Rub[facility] Awad in [place]: [phone]. A crisis check-in was also set up for 01/14/19 at 6 PM. Pt's olvinMyles langston will be picking pt up upon discharge. [phone]. Sheis agreeable to oupt, but was concerned that she might not be able to get to if wilma was working so [place] was provided to pt. Pt also plans to contact her PCP to discuss a medication increase or change.
[2019-01-14 04:23] VITALS: BP 164/69; PULSE 50; RESP 15; TEMP 36.4; O2SAT 96
[2019-01-14] MEDS: ACETAMINOPHEN 325 MG TABLET 650 MG PO (04:43)
[2019-01-14 07:16] VITALS: BP 141/64; PULSE 48; RESP 16; TEMP 37.1; O2SAT 96
[2019-01-14] MEDS: ENOXAPARIN 40 MG/0.4 ML SYRINGE SUBCUT (08:12)
[2019-01-14] MEDS: CITALOPRAM 20 MG TABLET 40 MG PO (08:12)
[2019-01-14] MEDS: AZITHROMYCIN 250 MG TABLET 500 MG PO (08:12)
[2019-01-14] MEDS: predniSONE 20 MG TABLET 60 MG PO (08:12)
[2019-01-14] MEDS: GABAPENTIN 300 MG CAPSULE 900 MG PO (08:13)
[2019-01-14] MEDS: SODIUM CHLORIDE 0.9% FLUSH 10 ML IV (08:13)
[2019-01-14] MEDS: BECLOMETHASONE 80 MCG INH 10.6 GM 2 PUFF INH (08:17)
[2019-01-14 08:18] VITALS: PULSE 67; RESP 14; O2SAT 97
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
--- NOTE | 2019-01-14 09:30 | CM.DPNOTE ---
DCP/Note: Reviewed chart. Patient provided with community resources by SOFTWARE TEST DEVELOPER last evening. Met briefly with patient explained SOFTWARE TEST DEVELOPER role. Patient reports that she feels good and wants to go home. Patient aware that she will be receiving phone call tonight from [facility]. Patient in agreement. No additional needs identified. Resources have been provided. Patient currently denies any suicidal ideation. P: Home today. RN updated. SHADY Sánchez
--- NOTE | 2019-01-14 09:34 | PC.NURSE ---
Went over dc instructions and medications with patient, questions answered. Pt requested to make her own follow up appt with Dr Frankel in a week. Pt given home medications that were being held in pharmacy. Patient given back, stay awake, OTC bottle, one tab of vivarin, three flovent inhalers 220mcg. Patient NOT given hydrocodone and ativan tabs that were also brought in by patient on admission, per DR Frankel. Patient informed that she would not be receiving the hydrocodone and ativan back at discharge. Patient agreeable to this. Denis in pharmacy made aware of this. Patient escorted out to car driven by significant other.
== END 2019-01-14 09:40 | disposition home or self-care (01) | DRG 812 ==
LOC: ED 10:14 → ICU 15:29
PROVIDERS: Admitting Provider Family Medicine; Emergency Provider Emergency Medicine; Family Provider Internal Medicine; PCP Internal Medicine; Visit Provider Internal Medicine
DX: T40.2X1A Poisoning by other opioids, accidental (unintentional), initial encounter (principal); J96.02 Acute respiratory failure with hypercapnia; J44.1 Chronic obstructive pulmonary disease with (acute) exacerbation; N17.9 Acute kidney failure, unspecified; G89.4 Chronic pain syndrome; G92 Toxic encephalopathy; J20.9 Acute bronchitis, unspecified; J44.0 Chronic obstructive pulmonary disease with (acute) lower respiratory infection; F41.9 Anxiety disorder, unspecified; T42.4X1A Poisoning by benzodiazepines, accidental (unintentional), initial encounter; F17.210 Nicotine dependence, cigarettes, uncomplicated; F32.9 Major depressive disorder, single episode, unspecified; V89.0XXA Person injured in unspecified motor-vehicle accident, nontraffic, initial encounter
CPT/HCPCS: 36415; 36600; 70450; 71045; 72125; 80048; 80053; 80076; 80305; 80320; 80329; 81003; 81015; 82550; 82553; 82805; 83735; 83880; 84145; 84484; 85025; 87797; 93005; 94640; 94660; 94760; 96361; 96374; 99223; 99232; 99233; 99238; 99284; 99285; 99406; G0480; J1650; J2930; J7613

== ENCOUNTER → 2019-02-11 14:15 | Outpatient (CLI) | payer OTHER, MEDICAID, SELFPAY ==
[2019-01-11 13:36] VITALS: BMI 23.5
[2019-01-12 10:07] VITALS: PULSE 81; RESP 16; O2SAT 99
--- NOTE | 2019-02-11 14:18 | DI.RAD.S_ITS ---
PROCEDURE: XR LUMBAR SPINE MIN 4V INDICATIONS: Post laminectomy syndrome TECHNIQUE: 5 views of the lumbar spine were acquired. COMPARISON: None. FINDINGS: Bones: 5 nonrib-bearing vertebrae are present. There is normal bony alignment. No vertebral body compression fractures. No suspicious bony lesions. Moderate degenerative disc disease L4-5, mild degenerative disc disease above and below. Facet osteoarthritis is mild available 34 and moderate at L4-5 and L5-S1. Soft tissues: Overlying bowel gas pattern is normal. No suspicious soft tissue calcifications. Oblique images: No pars defects. IMPRESSION: Degenerative changes as discussed most prominent at L3-4, with potential for spinal and foraminal stenosis at L4-5 and L5-S1. Dictated by: Maverick Maldonado M.D. on 02/11/2019 at 15:40 Approved by: Maverick Maldonado M.D. on 02/11/2019 at 15:40
== END ==
PROVIDERS: Family Provider Internal Medicine; PCP Internal Medicine; Visit Provider Physical Medicine & Rehabilitation
DX: M96.1 Postlaminectomy syndrome, not elsewhere classified (principal); M47.27 Other spondylosis with radiculopathy, lumbosacral region
CPT/HCPCS: 72110

== ENCOUNTER → 2019-03-02 13:07 | Outpatient (CLI) | payer OTHER, MEDICAID, SELFPAY ==
[2019-01-11 13:36] VITALS: BMI 23.5
[2019-01-12 10:07] VITALS: PULSE 81; RESP 16; O2SAT 99
--- NOTE | 2019-03-02 13:09 | DI.MRI.S_ITS ---
PROCEDURE: MR LUMBAR SPINE WO CON INDICATIONS: Post laminectomy syndrome TECHNIQUE: Noncontrast sagittal T1 spin echo and T2 fast echo, sagittal STIR, axial T1 and T2 fast spin echo through the lumbar spine. In cases with scoliosis, additional coronal T2 fast spin echo may be performed. COMPARISON: [facility], , L-SPINE WITHOUT CONTRAST, 05/26/2008, 11:40. FINDINGS: Image quality: Excellent. Alignment and Curvature: There is trace retrolisthesis of L2 on L3, L4 and L5. Bone Marrow: Marrow is of normal overall signal. Minimal reactive endplate changes are present at L2-3 through L4-5. No acute vertebral body compression fractures. Spinal Cord: Conus medullaris terminates at the L2 level. Visualized cord demonstrates normal signal and size. Paraspinous Soft Tissues: No paravertebral masses. Discs: [id number]-[id number] desiccation is present at L4-5, mild throughout the remainder of the lumbar spine. L1-L2: No disc bulge, spinal stenosis or foraminal narrowing.No interval change. Mild facet hypertrophy. L2-L3: Mild disc bulge without spinal stenosis. Mild left foraminal narrowing, progressive compared to prior exam. Facet and ligamentum flavum hypertrophy are present. L3-L4: Mild disc bulge with mild spinal stenosis. Mild left foraminal narrowing, solid progressive compared to prior exam. Facet and ligamentum flavum hypertrophy are present. L4-L5: Mild disc bulge with moderate to severe spinal stenosis, unchanged. Severe left and minimal right foraminal narrowing with facet and ligamentum flavum hypertrophy. L5-S1: Mild disc bulge without spinal stenosis. Minimal to mild right and minimal left foraminal narrowing with slight progression on the right. Facet hypertrophy is present. IMPRESSION: 1. Multilevel degenerative changes with areas of interval progression as above.. 2. Multilevel spinal stenosis most severe at L4-5 secondary to disc bulge with contributing effect of retrolisthesis and facet/ligamentum flavum arthropathy. 2. Multilevel foraminal narrowing severe at L4-5 secondary to facet arthropathy Dictated by: Kiley Meléndez M.D. on 03/04/2019 at 9:57 Approved by: Kiley Meléndez M.D. on 03/04/2019 at 10:55
== END ==
PROVIDERS: Family Provider Internal Medicine; PCP Internal Medicine; Visit Provider Physical Medicine & Rehabilitation
DX: M96.1 Postlaminectomy syndrome, not elsewhere classified (principal); M47.26 Other spondylosis with radiculopathy, lumbar region; M47.27 Other spondylosis with radiculopathy, lumbosacral region; M48.061 Spinal stenosis, lumbar region without neurogenic claudication
CPT/HCPCS: 72148

== ENCOUNTER 2019-05-30 14:46 | Outpatient (CLI) | payer OTHER, MEDICAID, SELFPAY ==
[2019-01-11 13:36] VITALS: BMI 23.5
[2019-01-12 10:07] VITALS: PULSE 81; RESP 16; O2SAT 99
[2019-05-30] VITALS (9 sets, daily range): BP systolic 106–132; BP diastolic 56–82; PULSE 58–76; RESP 16; TEMP 36.6; O2SAT 95–100
--- NOTE | 2019-05-30 14:47 | DI.RAD.S_ITS ---
PROCEDURE: PAIN L/S TRANSFORAMINAL INJECT INDICATIONS: SPINAL STENOSIS FINDINGS: Fluoroscopic spot filming was performed to verify placement of spinal needles at the L4-L5 level(s), as labeled on the films. Appropriate location(s) of the needle tip(s) was confirmed by injection of iodinated contrast. IMPRESSION: Fluoroscopy for pain management. Dictated by: Mere Corado M.D. on 05/30/2019 at 16:28 Approved by: Mere Corado M.D. on 05/30/2019 at 16:29
[2019-05-30] MEDS: fentaNYL 100 MCG/2 ML INJ 50 MCG IV (15:57)
[2019-05-30] MEDS: MIDAZOLAM 5 MG/5 ML VIAL IV (15:57)
[2019-05-30] MEDS: BUPIVACAINE 0.25% (PF) VIAL 2 ML INJ (16:01)
[2019-05-30] MEDS: BETAMETHASONE 30 MG/5 ML MDV 6 MG INJ (16:01)
[2019-05-30] MEDS: DEXAMETHASONE 10 MG/ML VIAL 20 MG INJ (16:01)
[2019-05-30] MEDS: IOPAMIDOL 15 ML VIAL 3 ML INJ (16:01)
--- NOTE | 2019-05-30 16:02 | PC.NURSE ---
ASSISTING PT OFF TABLE AND TRANSPORTING TO POST PROC AREA IN STABLE CONDITION. PASSING RN CARE OF PT OFF TO NIKKI Cerda RN.
--- NOTE | 2019-05-30 16:15 | P.PCN_ITS ---
Procedures Date/Time Date of procedure: 05/30/19 Time of procedure: 16:15 General Procedure description: PREOP DIAGNOSIS 1. FORMAINAL STENOSIS WITH LE SYMPTOMS POST OP DIAGNOSIS 1. FORMAINAL STENOSIS WITH LE SYMPTOMS PROCEDURES 1. FLUOROSCOPICALLY GUIDED CONTRAST CONTROLLED TRANSFORAMINAL EPIDURAL STEROID INJECTION - RIGHT L4/5 TFESI PHYSICIAN: Sagar Perea DO INDICATIONS: Jacquelyn is referred by Dr. Frankel for treatment of Foraminal Stenosis with Right LE Symptoms FINDINGS Foraminal Nerve Root Compression secondary to disc disease and facet hypertrophy DESCRIPTION OF PROCEDURE: Following review of allergy and review of potential side effects and complications, including, but not necessarily limited to, infection, allergic reaction, local tissue breakdown, stroke, temporary or permanent nerve injury, paralysis, and possible , the patient indicated that the patient understood and agreed to proceed. An informed consent document was signed by the patient, witnessed by a nurse, and placed in the patient's chart. Additionally, other treatment options including medications, modalities, and physical therapy were reviewed with the patient. After review of previous anaesthesic history and IV conscious sedation the patient was deemed safe to proceed with todays procedure with IV conscious sedation as ASA class II designation. Safety time-out was performed to confirm patient ID, procedure to be performed and site of procedure. IV sedation was accomplished with a combination of 3mg of Versed and 50mcg of Fentanyl was administered by the RN after DO order, titrated to patient comfort during the course of the procedure while the patient remained responsive to all verbal commands In the prone position following sterile prep and drape of the lumbar region, the Right L4/5 posterior neuroforamen was identified fluoroscopically. The skin was anesthetized via a 25-gauge 1.5-inch needle with 1% lidocaine solution. At this point, a 25-gauge 3.5-inch spinal needle was atraumatically introduced and advanced under fluoroscopic guidance through the posterior Right L4/5 neuroforamen to approximately the anterior aspect of the canal. Depth was confirmed on lateral view. Following negative aspiration, injection of approximately 1.5 cc of Isovue 200 under live fluoroscopy in the AP view confirmed excellent flow along the nerve root, into the epidural space without vascular or intrathecal uptake observed Radiological data, including multiple fluoroscopic views of the lumbosacral spine, reveal a spinal needle at the right L4/5 posterior neuroforamen. Subsequent views show flow of contrast material flowing superiorly and inferiorly along the nerve root confirming epidural flow. Subsequently, a test dose of 1.5 cc of 1% lidocaine solution was administered and patient was observed for two minutes for signs or symptoms of complications, including abdominal pain, shortness of breath, bilateral upper or lower extremity weakness, nausea and vomiting, prior to steroid injection. At this point, a total of 3cc or 20mg of dexamethasone and 6mg of betamethasone was injected without incident. The procedure tolerated the procedure well without signs or symptoms of complications prior to transfer to the recovery area continued monitoring without incident.The patient was then transferred to the recovery area where they were observed for an appropriate time after the injection. The patient reported a VAS score of 7 prior to the procedure and a post- procedure VAS of 0. Total Fluoroscopy Time: 20.9 seconds Total Conscious Sedation Time: 24min POST OP INSTRUCTIONS The patient was provided a Pain Log to continue to record their response to the target-specific procedure prior to follow-up visit with their referring physician. Additionally, specific post-injection care instructions and a contact number to our office were provided if concerns arise regarding possible complications associated with the procedure are suspected. Sagar Perea, Complications: none
--- NOTE | 2019-05-30 16:40 | PC.NURSE ---
VERSED AND FENTANYL PREPARED AND ADMINISTERED BY THIS RN. ALL OTHER MEDS PREPARED AND ADMINISTERED BY DR. CROFT.
--- NOTE | 2019-05-30 16:53 | PC.NURSE ---
Discharge note: VSS and O2 Sat WNL on arrival. Hand off report received from Garo Cabral RN. 0/10 pain level. Able to transfer from w/c to recliner independently. Discharge instructions given and explained with good understanding. Discharged to waiting room via w/c. will pick patient up at approx 1700.
== END 2019-05-30 16:45 | disposition home or self-care (01) ==
LOC: RAD 14:47
PROVIDERS: Family Provider Internal Medicine; PCP Internal Medicine; Visit Provider Physical Medicine & Rehabilitation
DX: M48.061 Spinal stenosis, lumbar region without neurogenic claudication (principal); M51.16 Intervertebral disc disorders with radiculopathy, lumbar region
CPT/HCPCS: 64483; 99152; J0702; J1100; J2250; J3010

== ENCOUNTER → 2020-06-01 09:57 | Outpatient (CLI) | payer OTHER, MEDICAID, SELFPAY ==
[2019-01-11 13:36] VITALS: BMI 23.5
[2019-01-12 10:07] VITALS: PULSE 81; RESP 16; O2SAT 99
[2020-06-01 12:24] LABS: Alanine Aminotransferase 19 IU/L (<35); Albumin 4.2 g/dL (3.5-5.0); Albumin Globulin Ratio 1.1 (1.0-2.8); Alkaline Phosphatase 104 U/L (38-126); Aspartate Aminotransferase 30 IU/L (14-36); BUN Creatinine Ratio 9.1 (6-22); Bilirubin Total 0.2 mg/dL (0.2-1.3); Blood Urea Nitrogen 11 mg/dL (7-17); Calcium 9.8 mg/dL (8.4-10.2); Carbon Dioxide 33 mmol/L (22-32); Chloride 107 mmol/L (98-107); Estimated Glomerular Filt Rate 45.4 mL/min (>60); Globulin 3.9 g/dL (1.7-4.1); Glucose 61 mg/dL (80-110); HEMOLYSIS < 15 (0-50); Potassium 4.5 mmol/L (3.4-5.1); Sodium 145 mmol/L (137-145); Total Protein 8.1 g/dL (6.3-8.2)
== END ==
PROVIDERS: Family Provider Internal Medicine; PCP Internal Medicine; Referring Provider Internal Medicine; Visit Provider Internal Medicine
DX: M18.11 Unilateral primary osteoarthritis of first carpometacarpal joint, right hand (principal); M48.061 Spinal stenosis, lumbar region without neurogenic claudication
CPT/HCPCS: 36415; 80053

== ENCOUNTER → 2020-07-02 10:41 | Outpatient (CLI) | payer OTHER, MEDICAID, SELFPAY ==
[2019-01-11 13:36] VITALS: BMI 23.5
[2019-01-12 10:07] VITALS: PULSE 81; RESP 16; O2SAT 99
[2020-07-02 11:20] LABS: COVID19 -Nasal RAPID Negative (Negative)
== END ==
PROVIDERS: Family Provider Internal Medicine; PCP Internal Medicine; Visit Provider Physician Assistant
DX: M79.10 Myalgia, unspecified site (principal); R05 Cough; R06.02 Shortness of breath; R51.9 Headache, unspecified; R53.83 Other fatigue
CPT/HCPCS: 87635

== ENCOUNTER 2021-02-21 13:25 | Emergency (ER) | payer OTHER, MEDICAID, SELFPAY ==
[2019-01-11 13:36] VITALS: BMI 23.5
[2019-01-12 10:07] VITALS: PULSE 81; RESP 16; O2SAT 99
[2021-02-21 13:32] VITALS: BP 114/69; PULSE 76; RESP 18; TEMP 36.7; O2SAT 95
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
== END 2021-02-21 15:31 | disposition home or self-care (01) ==
PROVIDERS: Emergency Provider Emergency Medicine; Family Provider Internal Medicine; PCP Internal Medicine
DX: R51.9 Headache, unspecified (principal); S70.02XA Contusion of left hip, initial encounter; V89.2XXA Person injured in unspecified motor-vehicle accident, traffic, initial encounter
CPT/HCPCS: 70450; 73552; 99281; 99284

== ENCOUNTER → 2021-06-25 09:53 | Outpatient (CLI) | payer OTHER, MEDICAID, SELFPAY ==
[2019-01-11 13:36] VITALS: BMI 23.5
[2019-01-12 10:07] VITALS: PULSE 81; RESP 16; O2SAT 99
--- NOTE | 2021-06-25 09:55 | DI.RAD.S_ITS ---
PROCEDURE: FL BARIUM SWALLOW W AIR COMPARISON: None. INDICATIONS: diff swallowing FINDINGS: Patient show normal swallowing motion. Normal peristalsis of esophageal wall muscle is seen. No area of obstruction or high-grade stenosis. No gross intraluminal filling defect or esophageal wall ulceration. Visualized portion of stomach lumen shows no gross abnormality. No hiatal hernia or gastroesophageal reflux is seen. There is normal passage of barium tablet through esophagus into stomach lumen. IMPRESSION: Unremarkable double-contrast swallow study. Dictated by: Mika Lovett M.D. on 06/25/2021 at 11:46 Approved by: Mika Lovett M.D. on 06/25/2021 at 11:48
== END ==
PROVIDERS: Family Provider Internal Medicine; PCP Internal Medicine; Referring Provider Internal Medicine; Visit Provider Internal Medicine
DX: R13.10 Dysphagia, unspecified (principal)
CPT/HCPCS: 74221

== ENCOUNTER 2021-10-01 11:45 | Emergency (ER) | payer OTHER, MEDICAID, SELFPAY ==
[2019-01-11 13:36] VITALS: BMI 23.5
[2019-01-12 10:07] VITALS: PULSE 81; RESP 16; O2SAT 99
[2021-10-01 12:08] VITALS: BP 126/74; PULSE 77; RESP 16; TEMP 36.6; O2SAT 96; BMI 255.9
--- NOTE | 2021-10-01 12:14 | DI.RAD.S_ITS ---
PROCEDURE: XR FOOT RT 2V INDICATIONS: medial ankle edema, pain started in arch of midfoot TECHNIQUE: 3 views of the foot were acquired. COMPARISON: None. FINDINGS: Bones: Questionable irregularity of the medial navicular. Mild hallux valgus. Chronic postsurgical changes at the 1st metatarsal head and first proximal phalanx.Scattered degenerative changes are seen in the interphalangeal joints of toes. Soft tissues: Mild soft tissue edema is seen at the medial aspect of the foot. IMPRESSION: Questionable irregularity of the medial navicular. Recommend correlation for point tenderness. MRI or CT could be obtained for further evaluation if indicated clinically. Dictated by: Angel Kelley M.D. on 10/01/2021 at 12:46 Approved by: Angel Kelley M.D. on 10/01/2021 at 12:49
--- NOTE | 2021-10-01 12:14 | DI.RAD.S_ITS ---
PROCEDURE: XR ANKLE RT MIN 3V INDICATIONS: medial ankle edema, pain started in arch of midfoot TECHNIQUE: 3 views of the ankle were acquired. COMPARISON: None. FINDINGS: Bones: No acute fractures or dislocations. Ankle mortise is normally aligned. No suspicious bony lesions. Tiny posterior calcaneal spur is present. Soft tissues: No suspicious soft tissue calcification. IMPRESSION: No acute osseous abnormality. If clinical suspicion and/or symptoms persist, additional imaging with repeat plain films, or advanced imaging (e.g. CT, MRI) may be helpful for further assessment. Dictated by: Angel Kelley M.D. on 10/01/2021 at 12:43 Approved by: Angel Kelley M.D. on 10/01/2021 at 12:46
--- NOTE | 2021-10-01 12:16 | ED.EXTPRO ---
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 She went to the walk-in clinic on 09/20/2021, the note states that she had 2 weeks of right foot pain at that time, provider considered exam consistent with plantar fasciitis. Patient did not have any trauma to her foot, no imaging was obtained, patient was referred to Podiatry and has not followed up with Podiatry she went and got orthotics and has been trying those which has not helped. She has been doing supportive care with rice, topical diclofenac, and oral [id number] medications and states today that she has a swollen right ankle on the medial aspect now, it was not swollen before and she complains of ongoing pain. She endorses a history of arthritis in her MCP joints in her hands, a family history of rheumatoid arthritis, she has a history of carpal tunnel, COPD, chronic pain syndrome, neuropathy, lumbosacral spondylosis with radiculopathy, prior laminectomy, and depression. She states it is painful to walk on, and pain is worse with dorsiflexion. She denies any new sensation changes other than her baseline neuropathy. Related Data Previous Rx's Medication Instructions Recorded fluticasone propionate 220 2 puff INHALATION BID #12 g 12/25/20 mcg/actuation HFA aerosol inhaler (Flovent HFA) gabapentin 600 mg tablet 900 mg PO TID #270 tab 02/11/21 cyclobenzaprine 10 mg tablet 10 mg PO TID PRN #30 tab 02/25/21 ketorolac 10 mg tablet 10 mg PO Q6H PRN #30 tab 02/25/21 citalopram 40 mg tablet 40 mg PO DAILY #90 tab 06/21/21 bupropion HCl 150 mg tablet,12 hr 150 mg PO DAILY #90 each 07/09/21 sustained-release clonazepam 1 mg tablet 1 mg PO BID #60 tab 07/16/21 hydrocodone 5 mg-acetaminophen 325 1 tab PO Q6-8H PRN #14 tab 10/01/21 mg tablet methylprednisolone 4 mg tablets in See Rx Instructions PO .COMPLEX 10/01/21 a dose pack #21 ea omeprazole 20 mg tablet,delayed 20 mg PO DAILY #10 tab 10/01/21 release Allergies Allergy/AdvReac Type Severity Reaction Status Date / Time No Known Drug Allergies Allergy Unknown Verified 09/20/21 12:44 [NO KNOWN DRUG ALLERGIES] Review of Systems <FAHAD Mayers - Last Filed: 10/01/21 16:38> Review of Systems Narrative: General: denies fever, chills, malaise, sweats, fatigue Head/Neck: denies headache, neck pain, dizziness Eyes: denies visual changes, eye pain Cardio: denies chest pain, palpitations, edema Respiratory: denies dyspnea, cough, orthopnea GI: denies abdominal pain, nausea, vomiting, or diarrhea : denies dysuria, hematuria, urinary retention, frequency or incontinence MSK: Endorses right ankle pain, it started as right midfoot pain approximately 1 month ago, has progressed to swelling on the medial aspect of her right ankle and ongoing pain, endorses left thumb pain over her MCP joint Skin: denies rash, itching, skin lesions or other Neuro: denies numbness, tingling Patient History <FAHAD Mayers - Last Filed: 10/01/21 16:38> Medical History Anxiety (11/18/13) Bilateral tinnitus (2018) Carpal tunnel syndrome (01/08/11) Chronic back pain (07/03/14) Chronic obstructive pulmonary disease (07/07/17) Chronic pain syndrome Dysphagia (2018) Female hypogonadism syndrome (11/18/13) Foraminal stenosis of lumbar region Gastritis Gastroesophageal reflux disease without esophagitis (01/08/11) Osteoarthritis of carpometacarpal joint of right thumb Peripheral neuropathy Recurrent major depressive disorder, in partial remission (11/18/13) Surgical History Status post vaginal hysterectomy Family History Father Heart disease Mother Heart disease Brother No problems noted. Brother MVA (motor vehicle accident) Social History household members: other Smoking Status: Current every day smoker alcohol intake: never Smoking Status: Current every day smoker alcohol intake frequency: 0-2 drinks per day Substance Use Type: does not use and prescription drug Exam <FAHAD Mayers - Last Filed: 10/01/21 16:38> Narrative Exam Narrative: Independently reviewed vitals signs and nursing notes. General: cooperative, comfortable, in no acute distress, well developed and well groomed Head: atraumatic, symmetrical facial expressions Neck: supple, atraumatic, without lymphadenopathy. Eyes: pupils equal round and reactive, EOMI, conjunctiva normal Nose: nares patent, no rhinorrhea Mouth/Throat: uvula midline, moist mucus membranes Cardiovascular: regular rate and rhythm, no peripheral edema, warm extremities Respiratory: normal effort, able to speak in complete sentences, no audible wheezing, stridor, or rales. No retractions or tachypnea. GI: abdomen soft, nontender to palpation, nondistended, no masses, no exquisite tenderness with exam, without guarding or rebound. MSK: moves all extremities, ambulatory w/steady gait, neurovascularly intact, no weakness Skin: brisk capillary refill, no rash, no erythema Neuro: normal speech and cognition, A&O x3, normal tone Psych: mental status is grossly normal, congruent mood, normal affect, pleasant and cooperative Initial Vital Signs Initial Vital Signs: Vital Signs Temperature 97.8 F 10/01/21 12:08 Pulse Rate 77 10/01/21 12:08 Respiratory Rate 16 10/01/21 12:08 Blood Pressure 126/74 10/01/21 12:08 Pulse Oximetry 96 10/01/21 12:08 <Ladan Moreno MD - Last Filed: 10/02/21 09:43> Initial Vital Signs Initial Vital Signs: Vital Signs Temperature 97.8 F 10/01/21 12:08 Pulse Rate 77 10/01/21 12:08 Respiratory Rate 16 10/01/21 12:08 Blood Pressure 126/74 10/01/21 12:08 Pulse Oximetry 96 10/01/21 12:08 Course <FAHAD Mayers - Last Filed: 10/01/21 16:38> Orders Ordered: Discontinued Medications Hydrocodone Bitart/Acetaminophen (Hydrocodone/Acet 5/325 Tablet) 1 tab PO NOW ONE Stop: 10/01/21 13:27 Last Admin: 10/01/21 13:43 Dose: 1 tab Documented by: MARY Vital Signs Vital signs: Vital Signs - 8 hr 10/01/21 12:08 Temperature 97.8 F Pulse Rate 77 Respiratory Rate 16 Blood Pressure 126/74 Pulse Oximetry 96 <Ladan Moreno MD - Last Filed: 10/02/21 09:43> Orders Ordered: Discontinued Medications Hydrocodone Bitart/Acetaminophen (Hydrocodone/Acet 5/325 Tablet) 1 tab PO NOW ONE Stop: 10/01/21 13:27 Last Admin: 10/01/21 13:43 Dose: 1 tab Documented by: MARY Vital Signs Vital signs: Vital Signs - 8 hr 10/01/21 12:08 Temperature 97.8 F Pulse Rate 77 Respiratory Rate 16 Blood Pressure 126/74 Pulse Oximetry 96 MDM - Extremity (Nontraumatic) <FAHAD Mayers - Last Filed: 10/01/21 16:38> MDM Narrative Medical decision making narrative: This is a 61-year-old female presents to the emergency department with and midfoot pain with no associated trauma, onset 1 month ago. She was seen at the walk-in clinic and treated for plantar fasciitis, referred to prompt care rn but was unable to get an appointment. She states that her pain is worse, 10/10, she is taking Aleve, using Voltaren, states she has tried orthotics, and not making any improvement. On exam, patient has edema and ecchymosis surrounding her medial malleolus, medial malleolus is nontender to palpation, mid foot however is tender, she has a history of bunion surgery on her 1st metatarsal of this foot, no associated swelling or injuring this area or pain. She has tenderness on the medial aspect of her left ankle to palpation. Presume this is most likely arthritic changes as opposed to trauma, she has osteoarthritis in bilateral MCP joints in her hands, and history of autoimmune disease. Patient was fitted in a walking boot for ambulation, given a phone number for Rhoda López with Podiatry and Liss Freeman with Orthopedics at [facility]. She does not have a primary care provider, she was encouraged to find 1 and ask for physical therapy and advanced imaging. She was given pain medication today for ongoing symptoms, I gave her a methylprednisolone Dosepak for history of COPD, states increased inflammation COPD issues over the last 1-2 weeks, she was also given hydrocodone for pain and Toradol today in the emergency department. Recommend ice, supportive care, walking boot, and follow up with Podiatry. Patient is appropriate and amenable to discharge home. Vital signs are stable on repeat examination is unremarkable. Patient has been informed of results. Patient has been given strict return to ER precautions for any new or worsening symptoms. Patient understands to follow up closely with outpatient providers as instructed. Patient understands plan and agrees to discharge home. All questions and concerns answered at this time. Discharge Plan Departure Patient Disposition: Home Clinical Impression: Osteoarthritis Qualifiers: Osteoarthritis location: multiple joints Osteoarthritis type: unspecified Qualified Code(s): M15.9 - Polyosteoarthritis, unspecified Ankle swelling Qualifiers: Laterality: right Qualified Code(s): M25.471 - Effusion, right ankle Instructions: DI for Osteoarthritis, DI for Foot Pain Activity Restrictions/Additional Instructions: *You have been diagnosed with osteoarthritis with a flare and multiple joints, especially in your left thumb and right foot. There is no bony abnormality of your right ankle, this does not exclude a ligament injury or specify which type of arthritis you half. Because you have a history of osteoarthritis it is likely that kind. Please follow-up with Dr. Frankel if this problem is ongoing for pain control, and/or lab work to evaluate which type of arthritis you have. Please call and make an appointment with Dr. Duong below look from Podiatry, you may also call [facility] to get a appointment with Dr. Freeman for evaluation of your midfoot and right ankle pain. Please avoid walking on this without a boot. Try Tylenol, ibuprofen every 6 hours, icing, elevation, and Voltaren gel as he happen. You may take hydrocodone for breakthrough pain. Please take omeprazole daily for the next week to protect her stomach. *What to do: *Please continue to take your regular medications as directed. [ ] New medication prescriptions sent to your pharmacy: [ ] [ ] New medication written as a paper prescription [ ] No new medications given *Please follow up with your primary care provider in 2-3 days, call for an appointment. Let them know you were seen in the Emergency Department and that we asked that you be seen for follow-up. We will electronically transmit a record of today's note if your PCP is in our system *If you do not have a primary care provider please contact [phone] to establish care with one of the [facility] primary care providers. *Return to Emergency Department if you should have any new, worsening or concerning symptoms, such as [fever greater than 101F, chills, worsening pain, persistent vomiting or other bothersome symptoms] Prescriptions: New hydrocodone-acetaminophen 5-325 mg tablet 1 tab PO Q6-8H PRN (Reason: pain) Qty: 14 0RF omeprazole 20 mg tablet,delayed release (DR/EC) 20 mg PO DAILY Qty: 10 0RF methylprednisolone 4 mg tablets,dose pack See Rx Instructions PO .COMPLEX Qty: 21 0RF Rx Instructions: orally per package directions No Action Flovent HFA 220 mcg/actuation HFA aerosol inhaler 2 puff INHALATION BID Qty: 12 11RF gabapentin 600 mg tablet 900 mg PO TID Qty: 270 3RF citalopram 40 mg tablet 40 mg PO DAILY Qty: 90 1RF bupropion HCl 150 mg tablet sustained-release 12 hr 150 mg PO DAILY Qty: 90 3RF clonazepam 1 mg tablet 1 mg PO BID Qty: 60 3RF cyclobenzaprine 10 mg tablet 10 mg PO TID PRN (Reason: muscle spasm) Qty: 30 1RF ketorolac 10 mg tablet 10 mg PO Q6H PRN (Reason: pain) Qty: 30 1RF Referrals: [facility] [Provider Group] - 3-5 days (office in [place] ) Rhoda López DPM [Physician] - Liss Negrete MD [Physician] - Kamaljit Frankel MD [Primary Care Provider] - Stand Alone Forms: Work Release Note <Ladan Moreno MD - Last Filed: 10/02/21 09:43> [facility] Jana Attestation: I was immediately available in the department for consultation throughout this patient's visit. I agree with documentation as above. Ladan Moreno MD
[2021-10-01] MEDS: HYDROCODONE/ACET 5/325 TABLET 1 TAB PO (13:43)
== END 2021-10-01 14:05 | disposition home or self-care (01) ==
PROVIDERS: Emergency Provider Nurse Practitioner Critical Care Medicine; Family Provider Internal Medicine; PCP Internal Medicine
DX: M15.9 Polyosteoarthritis, unspecified (principal); M25.471 Effusion, right ankle
CPT/HCPCS: 73610; 73620; 99283

== ENCOUNTER → 2021-12-17 11:24 | Outpatient (CLI) | payer OTHER, MEDICAID, SELFPAY ==
[2021-10-13 14:37] VITALS: PULSE 81; RESP 16; O2SAT 99; BMI 23.5
[2021-12-17 12:38] LABS: COVID19 -Nasal RAPID Negative (Negative)
== END ==
PROVIDERS: Family Provider Internal Medicine; PCP Internal Medicine; Referring Provider Internal Medicine; Visit Provider Internal Medicine
DX: Z20.822 Contact with and (suspected) exposure to COVID-19 (principal)
CPT/HCPCS: 87635; C9803

== ENCOUNTER → 2021-12-17 11:26 | Outpatient (CLI) | payer OTHER, MEDICAID, SELFPAY ==
[2021-10-13 14:37] VITALS: PULSE 81; RESP 16; O2SAT 99; BMI 23.5
--- NOTE | 2021-12-24 08:35 | P.PFT.S_ITS ---
Pulmonary Function Test Referral & Results Date Patient Seen: 12/17/21 Requesting provider: Kamaljit Frankel Results: The spirometry demonstrates an FVC of 1.74 L which is 55% of predicted. The FEV1 was measured at 0.79 L which is 32% of predicted. The FEV1/FVC ratio was 45 which is 58% of predicted. Following the administration of bronchodilator there was 36% improvement in FEV1 and a 120% improvement in FEF 25-75%. Lung volumes show an SVC of 2.14 L which is 73% of predicted. The diffusing capacity was measured at 16.0 which is 69% of predicted. No hemoglobin value was provided, so no correction for potential anemia could be made, if appropriate. The maximum voluntary ventilation was severely reduced Interpretation: This study demonstrates severe obstructive lung disease with FEV1 of less than 1 L as above. There is evidence of significant benefit following bronchodilator administration as above There is a moderate reduction in lung volumes as well suggesting moderate restri ctive lung disease is present There is a moderate reduction diffusing capacity suggesting disease at the capillary alveolar level Altogether this is consistent with a diagnosis of severe COPD Compared to PFTs performed in June 2017, FEV1 is approximately 1/2 of what it was previously and there is further decline in all other measured indices as well Clinical correlation suggested
== END ==
PROVIDERS: Family Provider Internal Medicine; PCP Internal Medicine; Referring Provider Internal Medicine; Visit Provider Internal Medicine
DX: J44.9 Chronic obstructive pulmonary disease, unspecified (principal); F17.210 Nicotine dependence, cigarettes, uncomplicated; Z20.822 Contact with and (suspected) exposure to COVID-19
CPT/HCPCS: 87635; 94060; 94726; 94729; C9803

== ENCOUNTER 2022-02-02 10:30 | Emergency (ER) | payer OTHER, MEDICAID, SELFPAY ==
[2021-10-13 14:37] VITALS: PULSE 81; RESP 16; O2SAT 99; BMI 23.5
[2022-02-02 10:46] VITALS: BP 129/76; PULSE 84; RESP 19; TEMP 35.6; O2SAT 99; BMI 25.7
[2022-02-02] MEDS: TET,DIPH,PERTUSS(ACELL),VAC/PF 0.5 ML SYRINGE IM (13:05)
--- NOTE | 2022-02-02 13:06 | ED_ITS ---
HPI - Wound/Laceration <FAHAD Lai - Last Filed: 02/02/22 13:48> General Chief Complaint: Wound/Laceration Stated Complaint: Fall- has RA and worried about infection Time Seen by Provider: 02/02/22 12:53 Source: patient Mode of arrival: Family Vehicle History of Present Illness HPI narrative: 61-year-old female, daily smoker, presents to the emergency department with laceration to left knee and abrasions to right tinoco after fall earlier today. Patient reports that she was going outside to let her dogs out when she tripped and fell, landing on her knees. Patient recently diagnosed with RA yesterday and is unaware of her last tetanus shot. Patient denies hitting her head or any loss of consciousness. Related Data Previous Rx's Medication Instructions Recorded citalopram 40 mg tablet 40 mg PO DAILY #90 tabs 06/21/21 gabapentin 600 mg tablet 900 mg PO TID #270 tabs 10/18/21 fluticasone propionate 220 2 puff inhalation BID #12 grams 12/13/21 mcg/actuation HFA aerosol inhaler (Flovent HFA) albuterol sulfate 90 mcg/actuation 2 puff inhalation Q4-6H PRN 12/21/21 aerosol inhaler shortness of breath or wheezing #8.5 grams clonazepam 1 mg tablet 1 mg PO BID #60 tabs 01/07/22 Allergies Allergy/AdvReac Type Severity Reaction Status Date / Time No Known Drug Allergies Allergy Unknown Verified 12/09/21 11:16 [NO KNOWN DRUG ALLERGIES] Review of Systems <FAHAD Lai - Last Filed: 02/02/22 13:48> Review of Systems Narrative: Narrative: GENERAL: Denies chills, fatigue, fever, sweats. See HPI HEENT: Denies sinus pain, ear pain, sore throat, difficulty swallowing, dizziness. RESPIRATORY: Denies dyspnea, cough, wheezing, sputum. CARDIOVASCULAR: Denies chest pain, palpitations, edema. GASTROINTESTINAL: Denies nausea, vomiting, abdominal pain, diarrhea, constipation. : Denies dysuria, frequency, incontinence, hematuria, urinary retention, flank pain. MSK: Denies weakness, joint pain, or bony pain. SKIN: Endorses multiple abrasions on right tinoco and laceration to left knee. NEUROLOGIC: Denies weakness, dizziness, headache, numbness, confusion. PSYCHIATRIC: No concerning psychosocial issues. Patient History <FAHAD Lai - Last Filed: 02/02/22 13:48> Medical History Anxiety (11/18/13) Bilateral tinnitus (2019) Carpal tunnel syndrome (01/08/11) Chronic back pain (07/03/14) Chronic obstructive pulmonary disease (07/07/17) Chronic pain syndrome Dysphagia (2018) Female hypogonadism syndrome (11/18/13) Foraminal stenosis of lumbar region Gastritis Gastroesophageal reflux disease without esophagitis (01/08/11) Osteoarthritis of carpometacarpal joint of right thumb Peripheral neuropathy Recurrent major depressive disorder, in partial remission (11/18/13) Surgical History Status post vaginal hysterectomy Family History Father Heart disease Mother Heart disease Brother No problems noted. Brother MVA (motor vehicle accident) Social History household members: other Smoking Status: Current every day smoker alcohol intake: never Smoking Status: Current every day smoker tobacco type: cigarettes alcohol intake frequency: 0-2 drinks per day Substance Use Type: does not use and prescription drug Exam <FAHAD Lia - Last Filed: 02/02/22 13:48> Narrative Exam Narrative: Exam Narrative: GENERAL: This is a well-nourished, well-developed patient, in no acute distress HEAD: Atraumatic. Normocephalic. MSK: Moves all extremities. Normal range of motion, no clubbing or edema. Neurovascularly intact. Full strength of knee. NEURO: A&O x 3. SKIN: Multiple abrasions on right tinoco and laceration to left knee. Initial Vital Signs Initial Vital Signs: Vital Signs Temperature 96.1 F L 02/02/22 10:46 Pulse Rate 84 02/02/22 10:46 Respiratory Rate 19 02/02/22 10:46 Blood Pressure 129/76 02/02/22 10:46 Pulse Oximetry 99 02/02/22 10:46 Oxygen Delivery Method 02/02/22 10:46 Reviewed <DO Ebony Plummer Last Filed: 02/03/22 07:59> Initial Vital Signs Initial Vital Signs: Vital Signs Temperature 96.1 F L 02/02/22 10:46 Pulse Rate 84 02/02/22 10:46 Respiratory Rate 19 02/02/22 10:46 Blood Pressure 129/76 02/02/22 10:46 Pulse Oximetry 99 02/02/22 10:46 Oxygen Delivery Method 02/02/22 10:46 Procedures <FAHAD Lai - Last Filed: 02/02/22 13:48> Laceration Repair Laceration 1: Site: lower extremity (knee) Side (If applicable): left Size (cm): 3 Description: flap Depth: simple, single layer Local Anesthetic: lidocaine 2% and with epi Amount of anesthesia used (mL): 5 Pre-repair: wound explored and irrigated extensively Skin layer closed with: nylon Skin layer suture size: 4-0 Number of sutures: 7 Technique: simple, interrupted Course <FAHAD Lai - Last Filed: 02/02/22 13:48> Orders Ordered: Discontinued Medications Bacitracin (Bacitracin Oint 0.9 Gm Pckt) 1 applic TOP NOW ONE Stop: 02/02/22 13:25 Last Admin: 02/02/22 13:47 Dose: 1 applic Documented By: JOSHUA Diphtheria/Tetanus/Acell Pertussis (Tet,Diph,Pertuss(Acell),Vac/Pf 0.5 Ml Syringe) 0.5 ml IM .ONCE ONE Stop: 02/02/22 10:53 Last Admin: 02/02/22 13:05 Dose: 0.5 ml Documented By: GELY Lidocaine/Epinephrine (Lidocaine 2% W/Epi Inj) 20 ml INJ INTRA-OP ONE Stop: 02/02/22 13:12 Last Admin: 02/02/22 13:24 Dose: 5 ml Documented By: CTS Vital Signs Vital signs: Vital Signs - 8 hr 02/02/22 10:46 Temperature 96.1 F L Pulse Rate 84 Respiratory Rate 19 Blood Pressure 129/76 Pulse Oximetry 99 Oxygen Delivery Method Room Air <Ava Salazar DO - Last Filed: 02/03/22 07:59> Orders Ordered: Discontinued Medications Bacitracin (Bacitracin Oint 0.9 Gm Pckt) 1 applic TOP NOW ONE Stop: 02/02/22 13:25 Last Admin: 02/02/22 13:47 Dose: 1 applic Documented By: JOSHUA Diphtheria/Tetanus/Acell Pertussis (Tet,Diph,Pertuss(Acell),Vac/Pf 0.5 Ml Syringe) 0.5 ml IM .ONCE ONE Stop: 02/02/22 10:53 Last Admin: 02/02/22 13:05 Dose: 0.5 ml Documented By: CTS Lidocaine/Epinephrine (Lidocaine 2% W/Epi Inj) 20 ml INJ INTRA-OP ONE Stop: 02/02/22 13:12 Last Admin: 02/02/22 13:24 Dose: 5 ml Documented By: CTS Vital Signs Vital signs: Vital Signs - 8 hr 02/02/22 10:46 Temperature 96.1 F L Pulse Rate 84 Respiratory Rate 19 Blood Pressure 129/76 Pulse Oximetry 99 Oxygen Delivery Method Room Air MDM - Wound/Laceration <FAHAD Lai - Last Filed: 02/02/22 13:48> Differential Diagnosis Differential diagnosis: Likely laceration and abrasion MDM Narrative Medical decision making narrative: 61-year-old female presents emergency department with laceration to left knee and abrasions to right tinoco status post fall earlier today. Wounds were cleansed and dressed. The laceration was irrigated, anesthetized, cleansed and closed with sutures. Patient tolerated procedure well. Tetanus status updated. Discussed proper wound care, plan of care and return precautions with patient, who was agreeable with course of action. Discharge Plan Departure Patient Disposition: Home Clinical Impression: Laceration Instructions: DI for Laceration Repair Activity Restrictions/Additional Instructions: *You have been diagnosed with left knee laceration secondary to a fall earlier today. I was able to close the laceration with 7 sutures. Please have the sutures removed in 10- 14 days by her family doctor, urgent care or return to the emergency department. You may apply antibiotic ointment 1-2 times daily and keep the site is clean and dry as possible. We have updated her tetanus status. For any worsening symptoms that include increased redness, swelling, or yellow discharge, please return to the emergency department. For any other symptoms, please follow-up with your family doctor as needed. *What to do: *Please continue to take your regular medications as directed. [ ] New medication prescriptions sent to your pharmacy: [ ] [ ] New medication written as a paper prescription [x ] No new medications given *Please follow up with your primary care provider in 2-3 days, call for an appointment. Let them know you were seen in the Emergency Department and that we ask that you be seen in follow up. We will electronically transmit a record of today's note if your PCP is in our system *If you do not have a primary care provider please contact the [facility] Resource line at [phone]. They will ask some questions about your medical history and help get you set up with a doctor in the community. ? Return to ER if you should have any new, worsening or concerning symptoms, such as worsening pain, severe headache, confusion, chest pain, difficulty breathing, fever greater than 101 F, shaking chills, persistent vomiting to the point that you cannot drink fluids, or other new or worsening symptoms. Prescriptions: No Action citalopram 40 mg tablet 40 mg PO DAILY Qty: 90 1RF gabapentin 600 mg tablet 900 mg PO TID Qty: 270 3RF Flovent HFA 220 mcg/actuation HFA aerosol inhaler 2 puff INHALATION BID Qty: 12 11RF albuterol sulfate 90 mcg/actuation HFA aerosol inhaler 2 puff inhalation Q4-6H PRN (Reason: shortness of breath or wheezing) Qty: 8.5 3RF clonazepam 1 mg tablet 1 mg PO BID Qty: 60 2RF Referrals: Kamaljit Frankel MD [Primary Care Provider] - Visit Report Forms: Patient Portal/API <Ava Salazar DO - Last Filed: 02/03/22 07:59> [facility] ED Attending Jana Attestation: I was immediately available in the department for consultation. Documentation has been reviewed. I agree with assessment and plan.
[2022-02-02] MEDS: LIDOCAINE 2% W/EPI INJ 20 ML INJ (13:24)
[2022-02-02] MEDS: BACITRACIN OINT 0.9 GM PCKT 1 APPLIC TOP (13:47)
== END 2022-02-02 13:53 | disposition home or self-care (01) ==
PROVIDERS: Emergency Provider Registered Nurse; Family Provider Internal Medicine; PCP Internal Medicine
DX: S81.012A Laceration without foreign body, left knee, initial encounter (principal); W19.XXXA Unspecified fall, initial encounter; Z23 Encounter for immunization
CPT/HCPCS: 90471; 99283; 99284; 90715

== ENCOUNTER 2022-02-04 17:48 | Emergency (ER) | payer OTHER, MEDICAID, SELFPAY ==
[2021-10-13 14:37] VITALS: PULSE 81; RESP 16; O2SAT 99; BMI 23.5
[2022-02-04 18:17] VITALS: BP 145/78; PULSE 78; RESP 20; TEMP 36.8; O2SAT 95; BMI 25.7
--- NOTE | 2022-02-04 19:23 | PC.NURSE ---
Patient called on red phone, states she wants to leave. Apologized for wait. Encouraged patient to continue course of abx given today by PCP. Discussed things to return for.
--- NOTE | 2022-02-05 05:49 | ED.LOWEXIN ---
HPI - Extremity Injury (Lower) General Chief Complaint: Extremity Injury, Lower Stated Complaint: Left knee lac infected Source: patient Mode of arrival: Ambulatory Related Data Previous Rx's Medication Instructions Recorded citalopram 40 mg tablet 40 mg PO DAILY #90 tabs 06/21/21 gabapentin 600 mg tablet 900 mg PO TID #270 tabs 10/18/21 fluticasone propionate 220 2 puff inhalation BID #12 grams 12/13/21 mcg/actuation HFA aerosol inhaler (Flovent HFA) albuterol sulfate 90 mcg/actuation 2 puff inhalation Q4-6H PRN 12/21/21 aerosol inhaler shortness of breath or wheezing #8.5 grams clonazepam 1 mg tablet 1 mg PO BID #60 tabs 01/07/22 sulfamethoxazole 800 1 tab PO BID 10 days #20 tabs 02/04/22 mg-trimethoprim 160 mg tablet Allergies Allergy/AdvReac Type Severity Reaction Status Date / Time No Known Drug Allergies Allergy Unknown Verified 12/09/21 11:16 [NO KNOWN DRUG ALLERGIES] Patient History Medical History Anxiety (11/18/13) Bilateral tinnitus (2018) Carpal tunnel syndrome (01/08/11) Chronic back pain (07/03/14) Chronic obstructive pulmonary disease (07/07/17) Chronic pain syndrome Dysphagia (2017) Female hypogonadism syndrome (11/18/13) Foraminal stenosis of lumbar region Gastritis Gastroesophageal reflux disease without esophagitis (01/08/11) Osteoarthritis of carpometacarpal joint of right thumb Peripheral neuropathy Recurrent major depressive disorder, in partial remission (11/18/13) Surgical History Status post vaginal hysterectomy Family History Father Heart disease Mother Heart disease Brother No problems noted. Brother MVA (motor vehicle accident) Social History household members: other Smoking Status: Current every day smoker alcohol intake: never Smoking Status: Current every day smoker tobacco type: cigarettes alcohol intake frequency: 0-2 drinks per day Substance Use Type: does not use and prescription drug Exam Initial Vital Signs Initial Vital Signs: Vital Signs Temperature 98.3 F 02/04/22 18:17 Pulse Rate 78 02/04/22 18:17 Respiratory Rate 20 02/04/22 18:17 Blood Pressure 145/78 H 02/04/22 18:17 Pulse Oximetry 95 02/04/22 18:17 Oxygen Delivery Method 02/04/22 18:17 Discharge Plan Departure Patient Disposition: Left Without Being Seen Clinical Impression: Patient left without being seen
== END 2022-02-04 19:25 | disposition left against medical advice (07) ==
PROVIDERS: Emergency Provider Family Medicine Addiction Medicine; Family Provider Internal Medicine; PCP Internal Medicine
CPT/HCPCS: 99281

== ENCOUNTER 2022-02-22 13:13 | Day surgery (SDC) | payer OTHER, MEDICAID, SELFPAY ==
[2021-10-13 14:37] VITALS: PULSE 81; RESP 16; O2SAT 99; BMI 23.5
--- NOTE | 2022-02-22 | PATH_ITS ---
[facility] Accession Number: [id number] . 01 Material submitted: . PART A: duodenum bulb - DUODENAL BULB BIOPSY PART B: gastrointestinal site - ANTRUM BIOPSY PART C: esophagus, E-G Junction - GE JUNCTION BIOPSY PART D: colon - SIGMOID POLYP PART E: rectum - RECTAL POLYP . 01 Clinical history: . DX EGD/COLONOSCOPY UNDER GERERAL . 01 Diagnosis: A. Duodenum, Bulb, Biopsy: Duodenal mucosa with gastric surface foveolar metaplasia consistent with peptic duodenitis. Negative for intraepithelial lymphocytosis. Negative for dysplasia and malignancy. . B. Stomach, Antrum, Biopsy: Antral mucosa with mild chronic gastritis. Negative for Helicobacter by immunohistochemistry. Negative for intestinal metaplasia. Negative for dysplasia and malignancy. . C. Gastroesophageal Junction, Biopsy: Columnar mucosa with chronic active inflammation. Squamous mucosa with no diagnostic abnormality, including no increased intraepithelial eosinophils. Negative for intestinal metaplasia. Negative for dysplasia and malignancy. . D. Sigmoid Colon, Polyp, Biopsy: Hyperplastic polyp. . E. Rectum, Polyp, Biopsy: Hyperplastic polyp. [facility] 02/28/2022 1448 Local . 01 Electronically signed: . Mellisa Clark MD, Pathologist NPI- [id number] . 01 Gross description: . Part A: DUODENAL BULB BIOPSY: Received in formalin is 1 fragment(s) of luong, soft tissue measuring 0.3 x 0.3 x 0.1 cm submitted entirely in 1 cassette(s) Part B: ANTRUM BIOPSY: Received in formalin are 3 fragment(s) of luong, soft tissue measuring 0.5 x 0.1 x 0.1 cm to 0.3 x 0.3 x 0.2 cm submitted entirely in 1 cassette(s) Part C: GE JUNCTION BIOPSY: Received in formalin are 4 fragment(s) of luong, soft tissue measuring 0.3 x 0.1 x 0.1 cm to 0.1 x 0.1 x 0.1 cm submitted entirely in 1 cassette(s) Part D: SIGMOID POLYP: Received in formalin are 2 fragment(s) of luong, soft tissue measuring 0.7 x 0.4 x 0.3 cm to 0.2 x 0.1 x 0.1 cm submitted entirely in 1 cassette(s) Part E: RECTAL POLYP: Received in formalin is 1 fragment(s) of luong, soft tissue measuring 0.4 x 0.2 x 0.2 cm submitted entirely in 1 cassette(s) /CPE 02/23/2022 0708 Local . 01 Microscopic: . B. An immunohistochemical stain was performed to evaluate for Helicobacter organisms and is negative. The control stain showed appropriate reactivity. . * This test was developed and its performance characteristics determined by [facility]. It has not been cleared or approved by the U.S. Food and Drug Administration. The FDA has determined that such clearance or approval is not necessary. This test is used for clinical purposes. It should not be regarded as investigational or for research. . 01 Pathologist provided ICD-10: R13.10, K92.1 . 01 CPT . 326041, 232088, 980932, 961622, 447369, [id number] Specimen Comment: A courtesy copy of this report has been sent to [phone] Performed at: 01 [facility] [address] [place] [address], [place], [place] [id number] MD Mars Henning MD Phone: [phone]
[2022-02-22] MEDS: LACTATED RINGERS 1,000 ML 84 ML IV (13:47)
[2022-02-22 13:48] VITALS: BP 153/84; PULSE 73; RESP 16; TEMP 36.3; O2SAT 95; BMI 23.0
[2022-02-22 13:57] LABS: COVID19 -Nasal RAPID Negative (Negative)
--- NOTE | 2022-02-22 15:46 | PM.PREOP ---
Pre-operative Note COVID-19 COVID-19 status: Negative Result date/Date tested (Pos, Neg/Pending): 02/22/22 Interval Note History & Physical reviewed/Exam performed by Physician: Yes Changes to H&P: No ASA Class (for procedural sedation): II
--- NOTE | 2022-02-22 16:58 | P.OP.EGD&C_ITS ---
Operative Date/Time/Diagnoses Date of procedure: 02/22/22 Time of procedure: 16:58 Pre-op diagnosis: Dysphagia and melena Post-op diagnosis: other (Pyloric channel ulcer) Procedure & Clinicians Study performed: EGD and colonoscopy Same procedure as scheduled: Yes Surgeon: Kiko Bejarano Procedure Notes Procedure in detail: Surgeon: Kiko Bejarano MD Procedure in detail: A timeout was performed. A bite blocked was placed and monitors were attached to the patient. The patient was positioned in the supine position. Mac was administered by Dr. Burns. Once the patient was sedated the endoscope was inserted through the bite block and passed through the esophagus and stomach. There was old blood in the stomach. The pyloric channel was extremely small and strictured. The endoscope was able to be advanced past the pyloric channel and into the second portion of the duodenum. The duodenum appeared normal. The duodenal bulb demonstrated some mild duodenitis and random biopsies were taken from the duodenal bulb mucosa. The scope was then drawn back into the pyloric channel and a ulcer could just barely be visualized in the pyloric channel. It had a white base with no active bleeding. The endoscope was withdrawn into the stomach and the pylorus was inspected. There were no active ulcerations but there was some mild antritis and random biopsies were taken from the antrum. The rest of the stomach appeared normal. The endoscope was retroflexed and no hiatal hernia was seen. The endoscope was straightned and withdrawn into the esophagus. There is some mild esophagitis of the distal esophagus and random biopsies were taken from the GE junction. The rest of the esophagus appeared normal. Findings: Extremely narrow pyloric channel with a nonbleeding ulcer within the pyloric channel Next we repositioned the patient for a colonoscopy. A digital rectal exam was p erformed and was normal. The colonoscope was inserted and advanced to the cecum. The appendiceal orifice was identified and photographed. The scope was slowly withdrawn over greater than 6 minutes. There were rare diverticula in the sigmoid colon. There was a 7 mm polyp in the distal sigmoid colon which was removed with cold snare. There was 5 mm polyp in the proximal rectum which was removed with cold snare. The scope was retroflexed in the rectum and no abnormalities were noted other than some internal hemorrhoids. Findings: 7 mm polyp in the distal sigmoid colon and 5 mm polyp in the proximal rectum EBL: 5 mL Scope withdrawal time: 12 Post-procedure Disposition: PACU
[2022-02-22 17:01] VITALS: BP 121/63; PULSE 63; RESP 33; TEMP 36.2; O2SAT 96
[2022-02-22 17:06] VITALS: BP 122/62; PULSE 72; RESP 22; O2SAT 95
[2022-02-22 17:11] VITALS: BP 132/61; PULSE 67; RESP 10; O2SAT 95
[2022-02-22 17:16] VITALS: BP 154/78; PULSE 62; RESP 12; TEMP 36.8; O2SAT 95
[2022-02-22 17:40] VITALS: BP 144/75; PULSE 61; RESP 16; TEMP 36.8; O2SAT 96
--- NOTE | 2022-02-22 17:57 | SUR.PHASEII ---
Pt left when ready and left in stable condition.
== END 2022-02-22 17:46 | disposition home or self-care (01) ==
PROVIDERS: Family Provider Internal Medicine; PCP Internal Medicine; Referring Provider Surgery; Visit Provider Surgery
PROC: 0DJ08ZZ Inspection of Upper Intestinal Tract, Via Natural or Artificial Opening Endoscopic (ICD-10-PCS; CPT 43235; principal; 2022-02-22 14:45)
PROC: 0DJD8ZZ Inspection of Lower Intestinal Tract, Via Natural or Artificial Opening Endoscopic (ICD-10-PCS; CPT 45378; 2022-02-22 14:45)
DX: K92.1 Melena (principal); R13.10 Dysphagia, unspecified; F17.210 Nicotine dependence, cigarettes, uncomplicated; J44.9 Chronic obstructive pulmonary disease, unspecified; M06.9 Rheumatoid arthritis, unspecified; F41.9 Anxiety disorder, unspecified; G89.4 Chronic pain syndrome; K29.50 Unspecified chronic gastritis without bleeding; K63.5 Polyp of colon; K62.1 Rectal polyp; K31.A0 Gastric intestinal metaplasia, unspecified
CPT/HCPCS: 45385; 43239; 87635; C9803; J2704; J3010

== ENCOUNTER → 2022-03-11 08:26 | Outpatient (CLI) | payer OTHER, MEDICAID, SELFPAY ==
[2021-10-13 14:37] VITALS: PULSE 81; RESP 16; O2SAT 99; BMI 23.5
--- NOTE | 2022-03-11 08:27 | DI.RAD.S_ITS ---
PROCEDURE: XR KNEE LT 3V INDICATIONS: left knee infection TECHNIQUE: 3 views of the knee were acquired. COMPARISON: None. FINDINGS: Bones: No fractures or dislocations. No suspicious bony lesions. Moderate joint space narrowing present. Soft tissues: No joint effusion. No suspicious soft tissue calcifications. IMPRESSION: Moderate joint space narrowing without lytic lesion or joint effusion Approved by: Gordy Townsend M.D. on 03/11/2022 at 12:11
== END ==
PROVIDERS: Family Provider Internal Medicine; PCP Internal Medicine; Referring Provider Internal Medicine; Visit Provider Internal Medicine
DX: L03.116 Cellulitis of left lower limb (principal)
CPT/HCPCS: 73562

== ENCOUNTER → 2023-01-07 13:47 | Outpatient (CLI) | payer OTHER, MEDICAID, SELFPAY ==
[2021-10-13 14:37] VITALS: PULSE 81; RESP 16; O2SAT 99; BMI 23.5
--- NOTE | 2023-01-07 13:48 | DI.RAD.S_ITS ---
PROCEDURE: XR FINGER LT MIN 2V INDICATIONS: Inflamed distal joint TECHNIQUE: AP hand, 2 views of the left 2nd finger(s) acquired. COMPARISON: None. FINDINGS: There are moderate degenerative changes of the left 2nd finger distal interphalangeal joint. There is a prominent dorsal osteophyte at the base of the 2nd finger distal phalanx. Lucency at its base suggest possible fracture of the osteophyte. Otherwise, no acute fracture seen. No suspicious osseous erosions. There is moderate overlying soft tissue edema. No suspicious soft tissue calcifications. IMPRESSION: Moderate degenerative changes of the left 2nd distal interphalangeal joint with moderate overlying soft tissue swelling. There is a prominent dorsal osteophyte at the base of the 2nd finger distal phalanx with possible fracture at its base. Findings may also represent early inflammatory arthropathy although no osseous erosions identified at this time. Dictated by: Adryan Velasco M.D. on 01/07/2023 at 13:07 Approved by: Adryan Velasco M.D. on 01/07/2023 at 13:09
== END ==
PROVIDERS: Family Provider Internal Medicine; PCP Internal Medicine; Referring Provider Nurse Practitioner Family; Visit Provider Nurse Practitioner Family
DX: M79.89 Other specified soft tissue disorders (principal)
CPT/HCPCS: 73140

== ENCOUNTER 2023-01-17 09:45 | Outpatient (RCR) | payer OTHER, MEDICAID, SELFPAY ==
[2021-10-13 14:37] VITALS: PULSE 81; RESP 16; O2SAT 99; BMI 23.5
--- NOTE | 2022-12-21 16:38 | PT.OIE ---
Current Diagnoses Other chronic pain (12/21/22) Other spondylosis with radiculopathy, lumbosacral region (12/21/22) Spinal stenosis, lumbar region without neurogenic claudication (12/21/22) Postlaminectomy syndrome, not elsewhere classified (12/21/22) Difficulty in walking, not elsewhere classified (12/21/22) Unsteadiness on feet (12/21/22) Weakness (12/21/22) Past Medical History (Last Updated 08/04/22 @ 11:12 by Kamaljit Frankel MD) Anxiety (11/18/13) Bilateral tinnitus (2018) Carpal tunnel syndrome (01/08/11) Chronic back pain (07/03/14) Chronic obstructive pulmonary disease (07/07/17) Chronic pain syndrome Dysphagia (2017) Female hypogonadism syndrome (11/18/13) Foraminal stenosis of lumbar region Gastritis Gastroesophageal reflux disease without esophagitis (01/08/11) Osteoarthritis of carpometacarpal joint of right thumb Peripheral neuropathy Recurrent major depressive disorder, in partial remission (11/18/13) Rheumatoid arthritis Past Surgical History (Last Updated 08/04/22 @ 11:12 by Kamaljit Frankel MD) Status post vaginal hysterectomy Visit Care Team Role Provider Type Kamaljit Frankel MD Attending Provider Physician Family Provider Primary Care Provider Referring Provider Specialty: Internal Medicine Address: [address] [place] [address], [address], [facility] Email: [email or web address] Physical Therapy Initial Evaluation PT-OP-A Visit Information Start: 11/17/22 12:04 Freq: Status: Active Protocol: Document 12/21/22 11:31 [facility] (Rec: 12/21/22 12:56 [facility] [id number]) Out-Patient Physical Therapy Visit Information Visit Information Visit Type Initial Evaluation Visit Start Time 11:34 Visit Stop Time 12:19 Total Visit Minutes 45 Visit Number 06/30 Number of SURVEILLANCE SYSTEMS ENGINEER Visits 0 PT-OP-B Current Condition Start: 11/17/22 12:04 Freq: Status: Active Protocol: Document 12/21/22 11:31 [facility] (Rec: 12/21/22 12:56 [facility] [id number]) Current Condition History of Current Condition Onset Date couple years ago w/worsening last year Current Complaints R LBP History of Current Condition Pt reports LBP but does have history of lumbar laminectomy (unsure of level)over 10 years ago. All pain including leg pain went away until a couple years ago. Recently her BLEs feel like they just aren't there:, for ex: she will sometimes try to get out of the car and have to sit down. She felt like they just went numb. this has been happening since spring of last year. This has happened quite a few times. This lasted about 5 minutes. She has to grab something or sit down. She takes gabapentin but has cut back on that. She has been taking meloxicam. Pt reports her B hips wake her up at night. SHe has had falls in the past year d/t this. She fell 6 months ago when outside walking w/dogs. She does worry about falling. SHe does have RA> Pt reports it seems like she always hurts (back, hands, shoulders etc). She has a high sed rate. Pt did lab work already at [facility] and everything was normal except that. Her kidney functions are borderline. She goes for CT of abdomen d/t abdomen pain on Monday. She bends over when standing and leans into things like shopping cart. MRI does show pinching of L4 and L5 nerve root. 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 She filed for disability in November of last year d/t inc pain. She started on disability in may. Pain typically at R side of LB w/ occ radiating to L buttocks. She is going ot do PT first then injection. denies bowel/ bladder changes. abdominal pain that goes from L upper quadrant to L shoulder. It real quickly started on her. It has been about month and the past couple days is a little better. She isn't doing yard work anymore because she can't do that anymore. 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 She avoids stairs d/t pain. Pt reports energy is like zapped . Pt feels like her blaance has not been okay and is worse at other times. SHe got up and stood up and room was spinning and that was a while ago and denies recent dizzienss. Does have occ neck pain but its mostly tenseness Pt has hx of appy, tubes tied, hysterectomy. Prior Treatments and Tests injections prior to first surgery in back Treatment Goals Patient/Caregiver Goals Get back to working more; be able to go up/down stairs in home w/less pain; be able to walk and play w/dogs PT-OP-D Balance Start: 11/17/22 12:04 Freq: Status: Active Protocol: Document 12/21/22 11:31 [facility] (Rec: 12/21/22 12:56 [id number]) Balance Tests Single Limb Standing Single Limb- Right 13 sec w/some lat shear Single Limb- Left pain in L back 6 sec; some lat shear PT-OP-F Manual Assessment Start: 11/17/22 12:04 Freq: Status: Active Protocol: Document 12/21/22 11:31 [facility] (Rec: 12/21/22 12:56 [place] [id number]) Manual Assessments Soft Tissue Assessment Soft Tissue Mobility Assessment tendernss on greater troch, tenderness/tightness: L glutes , pirifromis, L>R QL, B ES, B multifidi Joint Mobility Assessment Joint Mobility Assessment R iliac crest higher than L PT-OP-G Mobility & Gait Start: 11/17/22 12:04 Freq: Status: Active Protocol: Document 12/21/22 11:31 [facility] (Rec: 12/21/22 12:56 [place] [id number]) OP Gait Assessment Comments Gait Comments lat lean L, no pelvis or RUE motion, primary locomotion from legs PT-OP-J Posture/Palpation/Skin Start: 11/17/22 12:04 Freq: Status: Active Protocol: Document 12/21/22 11:31 [facility] (Rec: 12/21/22 12:56 [id number]) Posture Evaluation Jose Postural Classification System Jose Postural Classifications Posterior/Posterior Vertebral Compression Test 1 Lumbar Protective Mechanism Left AP 0 Lumbar Protective Mechanism Right AP 0 Lumbar Protective Mechanism Left PA 0 Lumbar Protective Mechanism Right PA 1 Comments Posture Comments R foot turned out, L SB, R pelvic shear ; at pelvis rot R , upper rot L, fwd shoulders R >L PT-OP-K Range of Motion Start: 11/17/22 12:04 Freq: Status: Active Protocol: Document 12/21/22 11:31 [facility] (Rec: 12/21/22 12:56 [id number]) Lumbar Spine Range of Motion Lumbar Spine Active Percentage Flexion 5 Extension 60 Rotation Left 50 Rotation Right 50 Lateral Flexion Left 75 Lateral Flexion Right 75 Comments pain flex and ext PT-OP-L Special Tests Start: 11/17/22 12:04 Freq: Status: Active Protocol: Document 12/21/22 11:31 [facility] (Rec: 12/21/22 12:56 [facility] [id number]) Special Tests Lumbar Spine Special Tests Slump Test Results positive dural R; neural L PT-OP-M Strength Start: 11/17/22 12:04 Freq: Status: Active Protocol: Document 12/21/22 11:31 [facility] (Rec: 12/21/22 12:56 [facility] [id number]) Hip Strength Hip Manual Muscle Testing Left Flexion (L2) 3+ Fair+ Extension (S1) 3 Fair Abduction 3 Fair External Rotation 3+ Fair+ Internal Rotation 3+ Fair+ Comments pain in LB w/L hip ext Right Flexion (L2) 3+ Fair+ Extension (S1) 3 Fair Abduction 3 Fair External Rotation 3+ Fair+ Internal Rotation 3+ Fair+ Comments dec core stability w/all mMT B Knee Strength Knee Manual Muscle Testing Left Flexion (S2) 3+ Fair+ Extension (L3) 4 Good Right Flexion (S2) 3+ Fair+ Extension (L3) 3+ Fair+ Ankle/Foot Strength Ankle and Foot Manual Muscle Testing Left Dorsiflexion (L4) 4 Good Right Dorsiflexion (L4) 4+ Good+ PT-OP-T Assessment and Plan Start: 11/17/22 12:04 Freq: Status: Active Protocol: Document 12/21/22 11:31 [facility] (Rec: 12/21/22 12:56 [facility] [id number]) Physical Therapy Assessment Rehab Potential Rehabilitation Potential Good Evaluation Complexity Number of Personal Factors/Comorbidities 3 or More Number of Body Systems Impaired 4 or More Clinical Presentation at Evaluation Evolving Impairments Impairments Activity Tolerance,Balance, Functional Activities, Functional Mobility,Gait,Pain, Posture,ROM,Soft Tissue Mobility,Strength Goals stairs Hog Worker Goal (LTG) Pt will be able to go up and down her stairs as needed in her day w/o inc pain. LTG Duration 03/15/23 balance Short Term Goal (STG) Pt will be able to do SLS for at least 20 sec to show balance improvement STG Duration 01/28/23 Hog Worker Goal (LTG) Pt will be able to do 30 sec B to show improved balance LTG Duration 03/15/23 walking Short Term Goal (STG) Pt will be able to tolerate a 2 block walk w/dogs at least 3 days a week. STG Duration 02/12/23 Hog Worker Goal (LTG) Pt will be able to do grocery shopping w/o feeling need to lean on cart for support. LTG Duration 03/15/23 gardening Short Term Goal (STG) Pt will be able to functional squat for gardening and daily activities. STG Duration 02/01/23 [facility] Goal (LTG) Pt will be able to tolerate 20 min of gardening at a time LTG Duration 03/15/23 Assessment Summary Assessment Pt presents w/chronic LBP that has been present for the last few years w/worsening starting last year when she started to have instances of BLE numbness and having to hold on to stay upright or sit down. She has had lumbar MRI which shows L L4 and L5 n root compression along w/ degenerative changes throughout lumbar spine. She has seen her rheumotologist, primary and an orthopedic re: this pain. This pain along with other areas of pain d/t RA have limited her ability to do typical activity like yardwork/gardening, walking, playing w/dogs, stairs etc w/o inc pain. SHe has avoided some of these activities d/t the pain. The numbness is concerning as it encompasses her entire BLEs , which does not match dermatomal patterning. She would benefit from further testing for babinski and DTRs to look for any irregularities and PT to work on core and LE stability, balance, gait, dec pain and manual to LEs and trunk to improve movement patterns. Physical Therapy Plan Frequency and Duration Frequency of Treatment 1-2x/week Duration of treatment (weeks) 12 Plan of Care Start Date 12/21/22 Plan of Care End Date 03/15/23 Therapeutic Interventions Therapeutic Interventions Balance Training,Gait Training ,Home Exercise Program,Joint Mobilizations,Manual Therapy, Neuromuscular Re-education, Patient/Caregiver Education, Self-Care/Home Management,Soft Tissue Mobilization,Taping, Therapeutic Activities, Therapeutic Exercises Modalities Cold Pack/Ice Massage,Electric Stimulation,Hot Packs, Infrared Therapy,Traction- Mechanical,Ultrasound Next Visit Focus/Plan Next Note Type Treatment Note Next Visit Plan DTR testing, babinski, steps ups/down 2 in box, possibly try lunges, HEP:clamshells B, bridges, sit to stands, piriformis stretch, sciatic n glide manual to hips, innominate and sacrum, STM to paraspinals, QL & L glutes
--- NOTE | 2022-12-21 16:38 | PT.OPPOC ---
Physical, Occupational & Speech Therapy At [facility] Current Diagnoses Other chronic pain (12/21/22) Other spondylosis with radiculopathy, lumbosacral region (12/21/22) Spinal stenosis, lumbar region without neurogenic claudication (12/21/22) Postlaminectomy syndrome, not elsewhere classified (12/21/22) Difficulty in walking, not elsewhere classified (12/21/22) Unsteadiness on feet (12/21/22) Weakness (12/21/22) Visit Care Team Role Provider Type Kamaljit Frankel MD Attending Provider Physician Family Provider Primary Care Provider Referring Provider Specialty: Internal Medicine Address: [address] [place] [address], [address], [facility] Email: [email or web address] Plan Of Care PT-OP-T Assessment and Plan Start: 11/17/22 12:04 Freq: Status: Active Protocol: Document 12/21/22 11:31 [facility] (Rec: 12/21/22 12:56 [facility] [id number]) Physical Therapy Assessment Rehab Potential Rehabilitation Potential Good Evaluation Complexity Number of Personal Factors/Comorbidities 3 or More Number of Body Systems Impaired 4 or More Clinical Presentation at Evaluation Evolving Impairments Impairments Activity Tolerance,Balance, Functional Activities, Functional Mobility,Gait,Pain, Posture,ROM,Soft Tissue Mobility,Strength Goals stairs Poultry Process Worker Goal (LTG) Pt will be able to go up and down her stairs as needed in her day w/o inc pain. LTG Duration 03/15/23 balance Short Term Goal (STG) Pt will be able to do SLS for at least 20 sec to show balance improvement STG Duration 01/28/23 [employer] Process Worker Goal (LTG) Pt will be able to do 30 sec B to show improved balance LTG Duration 03/15/23 walking Short Term Goal (STG) Pt will be able to tolerate a 2 block walk w/dogs at least 3 days a week. STG Duration 02/12/23 [employer]oultry Process Worker Goal (LTG) Pt will be able to do grocery shopping w/o feeling need to lean on cart for support. LTG Duration 03/15/23 gardening Short Term Goal (STG) Pt will be able to functional squat for gardening and daily activities. STG Duration 02/01/23 [employer]oultry Process Worker Goal (LTG) Pt will be able to tolerate 20 min of gardening at a time LTG Duration 03/15/23 Assessment Summary Assessment Pt presents w/chronic LBP that has been present for the last few years w/worsening starting last year when she started to have instances of BLE numbness and having to hold on to stay upright or sit down. She has had lumbar MRI which shows L L4 and L5 n root compression along w/ degenerative changes throughout lumbar spine. She has seen her rheumotologist, primary and an orthopedic re: this pain. This pain along with other areas of pain d/t RA have limited her ability to do typical activity like yardwork/gardening, walking, playing w/dogs, stairs etc w/o inc pain. SHe has avoided some of these activities d/t the pain. The numbness is concerning as it encompasses her entire BLEs , which does not match dermatomal patterning. She would benefit from further testing for babinski and DTRs to look for any irregularities and PT to work on core and LE stability, balance, gait, dec pain and manual to LEs and trunk to improve movement patterns. Physical Therapy Plan Frequency and Duration Frequency of Treatment 1-2x/week Duration of treatment (weeks) 12 Plan of Care Start Date 12/21/22 Plan of Care End Date 03/15/23 Therapeutic Interventions Therapeutic Interventions Balance Training,Gait Training ,Home Exercise Program,Joint Mobilizations,Manual Therapy, Neuromuscular Re-education, Patient/Caregiver Education, Self-Care/Home Management,Soft Tissue Mobilization,Taping, Therapeutic Activities, Therapeutic Exercises Modalities Cold Pack/Ice Massage,Electric Stimulation,Hot Packs, Infrared Therapy,Traction- Mechanical,Ultrasound Next Visit Focus/Plan Next Note Type Treatment Note Next Visit Plan DTR testing, babinski, steps ups/down 2 in box, possibly try lunges, HEP:clamshells B, bridges, sit to stands, piriformis stretch, sciatic n glide manual to hips, innominate and sacrum, STM to paraspinals, QL & L glutes Plan of Care Dates Plan of Care Start Date 12/21/22 Plan of Care End Date 03/15/23 Electronically Signed by: Juli Amaya, PT 12/21/22 1268 If you are in agreement with this Plan of Care, please return a signed and dated copy. I have reviewed this Plan of Care and certify that the skilled therapy services above are required to meet the patient?s needs. Physician Signature Date Printed Name and Credentials Clinical Instructor Signature Printed Name and Credentials
--- NOTE | 2023-01-11 17:09 | PT-OP ANOTE ---
Pt called and VM left re: no show. She was reminded of no show policy and next scheduled visit. Asked to call if unable to make next visit.
--- NOTE | 2023-01-17 13:29 | PT.OTN ---
Current Diagnoses Other chronic pain (01/17/23) Other spondylosis with radiculopathy, lumbosacral region (01/17/23) Spinal stenosis, lumbar region without neurogenic claudication (01/17/23) Postlaminectomy syndrome, not elsewhere classified (01/17/23) Difficulty in walking, not elsewhere classified (01/17/23) Unsteadiness on feet (01/17/23) Weakness (01/17/23) Physical Therapy Treatment Note PT-OP-A Visit Information Start: 11/17/22 12:04 Freq: Status: Active Protocol: Document 01/17/23 09:44 [facility] (Rec: 01/17/23 10:36 [facility] [id number]) Out-Patient Physical Therapy Visit Information Visit Information Visit Type Treatment Note Visit Start Time 09:45 Visit Stop Time 10:30 Total Visit Minutes 45 Visit Number 07/31 Number of FOREIGN LEGAL CONSULTANT Visits 1 PT-OP-B Current Condition Start: 11/17/22 12:04 Freq: Status: Active Protocol: Document 12/21/22 11:31 [facility] (Rec: 12/21/22 12:56 [facility] [id number]) Current Condition History of Current Condition Onset Date couple years ago w/worsening last year Current Complaints R LBP History of Current Condition Pt reports LBP but does have history of lumbar laminectomy (unsure of level)over 10 years ago. All pain including leg pain went away until a couple years ago. Recently her BLEs feel like they just aren't there:, for ex: she will sometimes try to get out of the car and have to sit down. She felt like they just went numb. this has been happening since spring of last year. This has happened quite a few times. This lasted about 5 minutes. She has to grab something or sit down. She takes gabapentin but has cut back on that. She has been taking meloxicam. Pt reports her B hips wake her up at night. SHe has had falls in the past year d/t this. She fell 6 months ago when outside walking w/dogs. She does worry about falling. SHe does have RA> Pt reports it seems like she always hurts (back, hands, shoulders etc). She has a high sed rate. Pt did lab work already at [facility] and everything was normal except that. Her kidney functions are borderline. She goes for CT of abdomen d/t abdomen pain on Monday. She bends over when standing and leans into things like shopping cart. MRI does show pinching of L4 and L5 nerve root. 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 She filed for disability in November of last year d/t inc pain. She started on disability in may. Pain typically at R side of LB w/ occ radiating to L buttocks. She is going ot do PT first then injection. denies bowel/ bladder changes. abdominal pain that goes from L upper quadrant to L shoulder. It real quickly started on her. It has been about month and the past couple days is a little better. She isn't doing yard work anymore because she can't do that anymore. 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 She avoids stairs d/t pain. Pt reports energy is like zapped . Pt feels like her blaance has not been okay and is worse at other times. SHe got up and stood up and room was spinning and that was a while ago and denies recent dizzienss. Does have occ neck pain but its mostly tenseness Pt has hx of appy, tubes tied, hysterectomy. Prior Treatments and Tests injections prior to first surgery in back Treatment Goals Patient/Caregiver Goals Get back to working more; be able to go up/down stairs in home w/less pain; be able to walk and play w/dogs PT-OP-C Subjective Start: 11/17/22 12:04 Freq: Status: Active Protocol: Document 01/17/23 09:44 [facility] (Rec: 01/17/23 10:36 [facility] [id number]) OP-PT Subjective Patient Comments Patient Comments Jacquelyn reports she gets a pain high up her back that makes it hard to breathe but doesn't have it right now. She wants to be able to walk her dogs again. She felt fine after last visit but was sick last week. She states she cramps in her legs and feet a lot. She has COPD so coughs a lot. PT-OP-D Balance Start: 11/17/22 12:04 Freq: Status: Active Protocol: Document 12/21/22 11:31 [facility] (Rec: 12/21/22 12:56 [facility] [id number]) Balance Tests Single Limb Standing Single Limb- Right 13 sec w/some lat shear Single Limb- Left pain in L back 6 sec; some lat shear PT-OP-F Manual Assessment Start: 11/17/22 12:04 Freq: Status: Active Protocol: Document 12/21/22 11:31 [facility] (Rec: 12/21/22 12:56 [facility] [id number]) Manual Assessments Soft Tissue Assessment Soft Tissue Mobility Assessment tendernss on greater troch, tenderness/tightness: L glutes , pirifromis, L>R QL, B ES, B multifidi Joint Mobility Assessment Joint Mobility Assessment R iliac crest higher than L PT-OP-G Mobility & Gait Start: 11/17/22 12:04 Freq: Status: Active Protocol: Document 12/21/22 11:31 [facility] (Rec: 12/21/22 12:56 [facility] [id number]) OP Gait Assessment Comments Gait Comments lat lean L, no pelvis or RUE motion, primary locomotion from legs PT-OP-J Posture/Palpation/Skin Start: 11/17/22 12:04 Freq: Status: Active Protocol: Document 12/21/22 11:31 [facility] (Rec: 12/21/22 12:56 [facility] [id number]) Posture Evaluation Jose Postural Classification System Jose Postural Classifications Posterior/Posterior Vertebral Compression Test 1 Lumbar Protective Mechanism Left AP 0 Lumbar Protective Mechanism Right AP 0 Lumbar Protective Mechanism Left PA 0 Lumbar Protective Mechanism Right PA 1 Comments Posture Comments R foot turned out, L SB, R pelvic shear ; at pelvis rot R , upper rot L, fwd shoulders R >L PT-OP-K Range of Motion Start: 11/17/22 12:04 Freq: Status: Active Protocol: Document 12/21/22 11:31 [facility] (Rec: 12/21/22 12:56 [facility] [id number]) Lumbar Spine Range of Motion Lumbar Spine Active Percentage Flexion 5 Extension 60 Rotation Left 50 Rotation Right 50 Lateral Flexion Left 75 Lateral Flexion Right 75 Comments pain flex and ext PT-OP-L Special Tests Start: 11/17/22 12:04 Freq: Status: Active Protocol: Document 12/21/22 11:31 [facility] (Rec: 12/21/22 12:56 [facility] [id number]) Special Tests Lumbar Spine Special Tests Slump Test Results positive dural R; neural L PT-OP-M Strength Start: 11/17/22 12:04 Freq: Status: Active Protocol: Document 12/21/22 11:31 [facility] (Rec: 12/21/22 12:56 [facility] [id number]) Hip Strength Hip Manual Muscle Testing Left Flexion (L2) 3+ Fair+ Extension (S1) 3 Fair Abduction 3 Fair External Rotation 3+ Fair+ Internal Rotation 3+ Fair+ Comments pain in LB w/L hip ext Right Flexion (L2) 3+ Fair+ Extension (S1) 3 Fair Abduction 3 Fair External Rotation 3+ Fair+ Internal Rotation 3+ Fair+ Comments dec core stability w/all mMT B Knee Strength Knee Manual Muscle Testing Left Flexion (S2) 3+ Fair+ Extension (L3) 4 Good Right Flexion (S2) 3+ Fair+ Extension (L3) 3+ Fair+ Ankle/Foot Strength Ankle and Foot Manual Muscle Testing Left Dorsiflexion (L4) 4 Good Right Dorsiflexion (L4) 4+ Good+ PT-OP-Q Treatments Start: 11/17/22 12:04 Freq: Status: Active Protocol: Document 01/17/23 09:44 [facility] (Rec: 01/17/23 10:36 [facility] [id number]) Therapeutic Exercises Supine Exercises Piriformis Stretch Supine Exercise Name 1. Figure 4 2. Knee to opp shoulder - HEP Bridging Supine Exercise Name Unable to tolerate d/t HS discomfort - modified to Heel digs Side bilateral Reps/Minutes x2 Comments Hold for now. Heel Digs Supine Exercise Name HEP Core Supine Exercise Name TrA progression: 1.TrA 2. w/ BKFO - HEP Side bilateral Equipment Used monitoring TrA activation medial to ASIS Reps/Minutes 1. 10 x5SH; 2. x10ea Comments cues for breathholding; difficulty maintaining TrA w/ BKFO L>R Sidelying Exercises Clamshell Sidelying Exercise Name HEP Side bilateral Equipment Used pillow support between knees/ ankles Reps/Minutes x10 ea Comments good self-correction for pelvis rocking back Manual Therapy Treatment Soft Tissue Mobilization L hip Body Location L glutes, piriformis, QL Mobilization Type Myofascial Release,Rolling, Strumming,Sustained Pressure, Trigger Point Release,Other Intensity/Depth Moderate Body Position Sidelying Comments QL manual stretch 30s x 2 - Trigger point release to L piriformis m. Positive feedback response to STM Self-Care/Home Management Treatment Education Patient Education Body Mechanics,Home Exercise Program,Posture Other Education Educated pt in core anatomy with Transverse abdominis focus, interreleationship with diaphragm and importance of not breathholding. I/s pt in self-monitoring TrA activation medial to ASIS. Issued HEP: TrA w/ BKFO, Heel digs, s/l clamshell, and piriformis stretch (Fig 4 and knee to opp shoulder) - HO given. PT-OP-T Assessment and Plan Start: 11/17/22 12:04 Freq: Status: Active Protocol: Document 01/17/23 09:44 [facility] (Rec: 01/17/23 10:36 [facility] [id number]) Physical Therapy Assessment Impairments Impairments Activity Tolerance,Balance, Functional Activities, Functional Mobility,Gait,Pain, Posture,ROM,Soft Tissue Mobility,Strength Goals stairs [facility] Goal (LTG) Pt will be able to go up and down her stairs as needed in her day w/o inc pain. LTG Duration 03/15/23 balance Short Term Goal (STG) Pt will be able to do SLS for at least 20 sec to show balance improvement STG Duration 01/28/23 [facility] Goal (LTG) Pt will be able to do 30 sec B to show improved balance LTG Duration 03/15/23 walking Short Term Goal (STG) Pt will be able to tolerate a 2 block walk w/dogs at least 3 days a week. STG Duration 02/12/23 [employer] Mechan[employer] Goal (LTG) Pt will be able to do grocery shopping w/o feeling need to lean on cart for support. LTG Duration 03/15/23 gardening Short Term Goal (STG) Pt will be able to functional squat for gardening and daily activities. STG Duration 02/01/23 [employer] Mechanic Goal (LTG) Pt will be able to tolerate 20 min of gardening at a time LTG Duration 03/15/23 Assessment Summary Assessment Treatment focus on core and LE strengthening. Educated pt in core anatomy with Transverse abdominis focus, interreleationship with diaphragm and importance of not breathholding. I/s pt in self-monitoring TrA activation medial to ASIS. She requires consistent cues for breathholding w/ TrA activation but self-awareness improves w/ cueing and repetition. She is unable to tolerate bridging due to hamstring discomfort almost cramping so modified ex to heel digs. Issued HEP: TrA w/ BKFO, Heel digs, s/l clamshell , and piriformis stretch (Fig 4 and knee to opp shoulder) - HO given. Physical Therapy Plan Frequency and Duration Frequency of Treatment 1-2x/week Duration of treatment (weeks) 12 Plan of Care Start Date 12/21/22 Plan of Care End Date 03/15/23 Therapeutic Interventions Therapeutic Interventions Balance Training,Gait Training ,Home Exercise Program,Joint Mobilizations,Manual Therapy, Neuromuscular Re-education, Patient/Caregiver Education, Self-Care/Home Management,Soft Tissue Mobilization,Taping, Therapeutic Activities, Therapeutic Exercises Modalities Cold Pack/Ice Massage,Electric Stimulation,Hot Packs, Infrared Therapy,Traction- Mechanical,Ultrasound Next Visit Focus/Plan Next Note Type Treatment Note Next Visit Plan Review new HEP: (TrA w/ BKFO, heel digs, s/l clamshell, piriformis stretch) DTR testing, babinski, steps ups/down 2 in box, possibly try lunges, HEP:bridges, sit to stands, sciatic n glide manual to hips, innominate and sacrum, STM to paraspinals, QL & L glutes
--- NOTE | 2023-01-23 11:48 | PT-OP ANOTE ---
Called pt regarding missed 1130a appt today and offered 2:30p appt with SPEED READING TEACHER this afternoon. Jacquelyn apologized and explained she just learned her dog has cancer and may not make it. She declines appt today and asks to be placed on cancellation list instead (motel front desk attendant notified). Next scheduled appt confirmed 02/02 a 7:30a with PT.
--- NOTE | 2023-03-06 08:38 | PT.OPDS ---
Current Diagnoses Other chronic pain (01/17/23) Other spondylosis with radiculopathy, lumbosacral region (01/17/23) Spinal stenosis, lumbar region without neurogenic claudication (01/17/23) Postlaminectomy syndrome, not elsewhere classified (01/17/23) Difficulty in walking, not elsewhere classified (01/17/23) Unsteadiness on feet (01/17/23) Weakness (01/17/23) Visit Care Team Role Provider Type Kamaljit Frankel MD Attending Provider Physician Family Provider Primary Care Provider Referring Provider Specialty: Internal Medicine Address: [address] [place] [address], [address], [facility] Email: [email or web address] Visit Number Visit Number 07/31 Discharge Summary PT-OP-B Current Condition Start: 11/17/22 12:04 Freq: Status: Active Protocol: Document 12/21/22 11:31 [facility] (Rec: 12/21/22 12:56 [facility] [id number]) Current Condition History of Current Condition Onset Date couple years ago w/worsening last year Current Complaints R LBP History of Current Condition Pt reports LBP but does have history of lumbar laminectomy (unsure of level)over 10 years ago. All pain including leg pain went away until a couple years ago. Recently her BLEs feel like they just aren't there:, for ex: she will sometimes try to get out of the car and have to sit down. She felt like they just went numb. this has been happening since spring of last year. This has happened quite a few times. This lasted about 5 minutes. She has to grab something or sit down. She takes gabapentin but has cut back on that. She has been taking meloxicam. Pt reports her B hips wake her up at night. SHe has had falls in the past year d/t this. She fell 6 months ago when outside walking w/dogs. She does worry about falling. SHe does have RA> Pt reports it seems like she always hurts (back, hands, shoulders etc). She has a high sed rate. Pt did lab work already at [facility] and everything was normal except that. Her kidney functions are borderline. She goes for CT of abdomen d/t abdomen pain on Monday. She bends over when standing and leans into things like shopping cart. MRI does show pinching of L4 and L5 nerve root. 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 She filed for disability in November of last year d/t inc pain. She started on disability in may. Pain typically at R side of LB w/ occ radiating to L buttocks. She is going ot do PT first then injection. denies bowel/ bladder changes. abdominal pain that goes from L upper quadrant to L shoulder. It real quickly started on her. It has been about month and the past couple days is a little better. She isn't doing yard work anymore because she can't do that anymore. 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 She avoids stairs d/t pain. Pt reports energy is like zapped . Pt feels like her blaance has not been okay and is worse at other times. SHe got up and stood up and room was spinning and that was a while ago and denies recent dizzienss. Does have occ neck pain but its mostly tenseness Pt has hx of appy, tubes tied, hysterectomy. Prior Treatments and Tests injections prior to first surgery in back Treatment Goals Patient/Caregiver Goals Get back to working more; be able to go up/down stairs in home w/less pain; be able to walk and play w/dogs PT-OP-C Subjective Start: 11/17/22 12:04 Freq: Status: Active Protocol: Document 01/17/23 09:44 [facility] (Rec: 01/17/23 10:36 [facility] [id number]) OP-PT Subjective Patient Comments Patient Comments Jacquelyn reports she gets a pain high up her back that makes it hard to breathe but doesn't have it right now. She wants to be able to walk her dogs again. She felt fine after last visit but was sick last week. She states she cramps in her legs and feet a lot. She has COPD so coughs a lot. PT-OP-D Balance Start: 11/17/22 12:04 Freq: Status: Active Protocol: Document 12/21/22 11:31 [facility] (Rec: 12/21/22 12:56 [facility] [id number]) Balance Tests Single Limb Standing Single Limb- Right 13 sec w/some lat shear Single Limb- Left pain in L back 6 sec; some lat shear PT-OP-F Manual Assessment Start: 11/17/22 12:04 Freq: Status: Active Protocol: Document 12/21/22 11:31 [facility] (Rec: 12/21/22 12:56 [facility] [id number]) Manual Assessments Soft Tissue Assessment Soft Tissue Mobility Assessment tendernss on greater troch, tenderness/tightness: L glutes , pirifromis, L>R QL, B ES, B multifidi Joint Mobility Assessment Joint Mobility Assessment R iliac crest higher than L PT-OP-G Mobility & Gait Start: 11/17/22 12:04 Freq: Status: Active Protocol: Document 12/21/22 11:31 [facility] (Rec: 12/21/22 12:56 [facility] [id number]) OP Gait Assessment Comments Gait Comments lat lean L, no pelvis or RUE motion, primary locomotion from legs PT-OP-J Posture/Palpation/Skin Start: 11/17/22 12:04 Freq: Status: Active Protocol: Document 12/21/22 11:31 [facility] (Rec: 12/21/22 12:56 [facility] [id number]) Posture Evaluation [facility] Postural Classification System Jose Postural Classifications Posterior/Posterior Vertebral Compression Test 1 Lumbar Protective Mechanism Left AP 0 Lumbar Protective Mechanism Right AP 0 Lumbar Protective Mechanism Left PA 0 Lumbar Protective Mechanism Right PA 1 Comments Posture Comments R foot turned out, L SB, R pelvic shear ; at pelvis rot R , upper rot L, fwd shoulders R >L PT-OP-K Range of Motion Start: 11/17/22 12:04 Freq: Status: Active Protocol: Document 12/21/22 11:31 [facility] (Rec: 12/21/22 12:56 [facility] [id number]) Lumbar Spine Range of Motion Lumbar Spine Active Percentage Flexion 5 Extension 60 Rotation Left 50 Rotation Right 50 Lateral Flexion Left 75 Lateral Flexion Right 75 Comments pain flex and ext PT-OP-L Special Tests Start: 11/17/22 12:04 Freq: Status: Active Protocol: Document 12/21/22 11:31 [facility] (Rec: 12/21/22 12:56 [facility] [id number]) Special Tests Lumbar Spine Special Tests Slump Test Results positive dural R; neural L PT-OP-M Strength Start: 11/17/22 12:04 Freq: Status: Active Protocol: Document 12/21/22 11:31 [facility] (Rec: 12/21/22 12:56 [facility] [id number]) Hip Strength Hip Manual Muscle Testing Left Flexion (L2) 3+ Fair+ Extension (S1) 3 Fair Abduction 3 Fair External Rotation 3+ Fair+ Internal Rotation 3+ Fair+ Comments pain in LB w/L hip ext Right Flexion (L2) 3+ Fair+ Extension (S1) 3 Fair Abduction 3 Fair External Rotation 3+ Fair+ Internal Rotation 3+ Fair+ Comments dec core stability w/all mMT B Knee Strength Knee Manual Muscle Testing Left Flexion (S2) 3+ Fair+ Extension (L3) 4 Good Right Flexion (S2) 3+ Fair+ Extension (L3) 3+ Fair+ Ankle/Foot Strength Ankle and Foot Manual Muscle Testing Left Dorsiflexion (L4) 4 Good Right Dorsiflexion (L4) 4+ Good+ PT-OP-T Assessment and Plan Start: 11/17/22 12:04 Freq: Status: Active Protocol: Document 03/06/23 08:36 [facility] (Rec: 03/06/23 08:38 [facility] [id number]) Physical Therapy Assessment Goals stairs Half-Way Goal (LTG) Pt will be able to go up and down her stairs as needed in her day w/o inc pain. LTG Duration 03/15/23 balance Short Term Goal (STG) Pt will be able to do SLS for at least 20 sec to show balance improvement STG Duration 01/28/23 Transport Manager Goal (LTG) Pt will be able to do 30 sec B to show improved balance LTG Duration 03/15/23 walking Short Term Goal (STG) Pt will be able to tolerate a 2 block walk w/dogs at least 3 days a week. STG Duration 02/12/23 Half-Way Goal (LTG) Pt will be able to do grocery shopping w/o feeling need to lean on cart for support. LTG Duration 03/15/23 gardening Short Term Goal (STG) Pt will be able to functional squat for gardening and daily activities. STG Duration 02/01/23 Half-Way Goal (LTG) Pt will be able to tolerate 20 min of gardening at a time LTG Duration 03/15/23 Assessment Summary Assessment Pt cancelled last 6 appts and no showed the one prior to that. She has only attended 2 appts including IE. She is DC at this time d/t noncompliance . She has no signfiicant progress d/t not consistantly attending PT Physical Therapy Plan Discharge Physical Therapy Discharge Reasons No Longer Attending PT
== END 2023-03-06 16:03 | disposition home or self-care (01) ==
LOC: PHYS 09:45
PROVIDERS: Family Provider Internal Medicine; PCP Internal Medicine; Referring Provider Internal Medicine; Visit Provider Internal Medicine
DX: M47.27 Other spondylosis with radiculopathy, lumbosacral region (principal); M96.1 Postlaminectomy syndrome, not elsewhere classified; M48.061 Spinal stenosis, lumbar region without neurogenic claudication; R53.1 Weakness; R26.2 Difficulty in walking, not elsewhere classified; G89.29 Other chronic pain
CPT/HCPCS: 97110; 97140; 97162; 97535

== ENCOUNTER → 2023-03-30 12:46 | Outpatient (CLI) | payer OTHER, MEDICAID, SELFPAY ==
[2021-10-13 14:37] VITALS: PULSE 81; RESP 16; O2SAT 99; BMI 23.5
--- NOTE | 2023-03-30 | DI.RAD.S_ITS ---
Bone Density Report Name: TOI ENG Age: 63 Sex: Female Ethnicity: White Date of : 1960 Indication: postmenopausal; screening for osteoporosis; history of glucocorticoids; Referring Provider: FAHAD JOYCE Study: Bone densitometry was performed. Exam Date: March 30, 2023 Accession number: [id number] Bone Density: Region BMD T-score Z-score Classification AP Spine(L1, L2, L3) 1.028 0.1 1.7 Normal Femoral Neck (Left) 0.710 -1.2 0.2 Osteopenia Total Hip (Left) 0.811 -1.1 0.0 Osteopenia Femoral Neck (Right) 0.735 -1.0 0.4 Normal Total Hip (Right) 0.825 -1.0 0.2 Normal Total Hip Mean 0.818 -1.1 0.1 Osteopenia World Health Organization criteria for BMD impression classify patients as: Normal (T-score at or above -1.0), Osteopenia (T-score between -1.0 and -2.5), or Osteoporosis (T-score at or below -2.5). 10-year Fracture Risk(1): Major Osteoporotic Fracture 11% Hip Fracture 1.8% Reported Risk Factors: [place] (), Neck BMD=0.710, BMI=21.1, smoking, glucocorticoids (1) FRAX(R) Version 3.08. Fracture probability calculated for an untreated patient. Fracture probability may be lower if the patient has received treatment. Impression: The patient has low bone mass, based on the Left Femoral Neck T-score. The patient has an estimated ten-year risk of hip fracture of 1.8% and an estimated ten-year risk of major fracture of 11%, based on the WHO FRAX algorithm. The patient has risk factors, including: smoking, history of glucocorticoid therapy. Discussion: BONE DENSITY IS LOW AT ONE OR MORE SKELETAL SITES. This patient's lowest T-score is low at one or more skeletal sites. It meets the World Health Organization's (WHO) criteria for low bone mass (T-score between -1.0 and -2.5). The patient's 10-year risk of fracture as calculated by FRAX is less than the threshold where pharmacological therapy is recommended by the National Osteoporosis Foundation (NOF). However, all treatment decisions require clinical judgment and consideration of individual patient factors, including patient preferences, comorbidities, previous drug use, risk factors not captured in the FRAX model (e.g., frailty, falls, vitamin D deficiency, increased bone turnover, interval significant decline in bone density) and possible under or overestimation of fracture risk by FRAX. The patient should follow a healthful lifestyle (good nutrition with adequate calcium and vitamin D, and appropriate weight-bearing exercise). Follow-Up: Consider repeating this study in 2 to 3 years to reassess this patient's status, or sooner if there is some new clinical indication. Reported by: GIOVANI HERBERT M.D. on 03/30/2023 1:08:00 PM.
--- NOTE | 2023-03-30 | DI.MG.S_ITS ---
BILATERAL DIGITAL SCREENING MAMMOGRAM 3D/2D WITH CAD: 03/30/2023 CLINICAL: Baseline exam. Routine screening. No prior exams were available for comparison. Both breasts are almost entirely fatty (category a/<25% glandular tissue). Current study was also evaluated with a Computer Aided Detection (CAD) system. There are benign lymph nodes in both breasts. No significant masses, calcifications, or other findings are seen in either breast. IMPRESSION: BENIGN There is no mammographic evidence of malignancy. A 1 year screening mammogram is recommended. Based on the Tyrer Cuzick model (a risk assessment model) the patient's lifetime risk is 3.0% and her 10 year risk is 1.3%. According to the ACR, ACS, and NCCN guidelines, an annual breast MRI exam along with mammogram is recommended if the patient's lifetime risk is 20% or greater. This exam was interpreted at Station ID: [id number]. NOTE: For mammograms, a report in lay terms will be sent to the patient. Approximately 15% of breast malignancies will not be visualized mammographically. In the management of a palpable breast mass, a negative mammogram must not discourage biopsy of a clinically suspicious lesion. Electronically Signed By: Juan Carlos Mckeon M.D. acr/mu:03/30/2023 16:45:05 letter sent: Normal Exam ACR BI-RADS Category 2: Benign Finding(s) 3342F
== END ==
PROVIDERS: Family Provider Internal Medicine; PCP Internal Medicine; Referring Provider Nurse Practitioner; Visit Provider Nurse Practitioner
DX: Z12.31 Encounter for screening mammogram for malignant neoplasm of breast (principal); M85.89 Other specified disorders of bone density and structure, multiple sites
CPT/HCPCS: 77063; 77067; 77080

== ENCOUNTER 2023-05-19 12:17 | Inpatient (IN) | payer OTHER, MEDICAID, SELFPAY ==
[2021-10-13 14:37] VITALS: PULSE 81; RESP 16; O2SAT 99; BMI 23.5
[2023-05-19] VITALS (11 sets, daily range): BP systolic 110–150; BP diastolic 59–82; PULSE 72–79; RESP 14–42; TEMP 36.5; O2SAT 87–94; BMI 22.1
--- NOTE | 2023-05-19 12:29 | DI.RAD.S_ITS ---
PROCEDURE: XR CHEST 1V INDICATIONS: Shortness of breath TECHNIQUE: One view of the chest was acquired. COMPARISON: [facility], CR, XR CHEST 1V, 01/11/2019, 7:49. FINDINGS: Surgical changes and devices: None. Lungs and pleura: Small infiltrate/atelectasis at bilateral lower lung holguin are seen. No pleural effusions or pneumothorax. Mediastinum: Mediastinal contours appear normal. Heart size is normal. Bones and chest wall: No suspicious bony lesions. Overlying soft tissues appear unremarkable. IMPRESSION: Subtle small patchy infiltrate/atelectasis in bilateral lower lung holguin. No pleural effusion or pneumothorax. Dictated by: Mika Lovett M.D. on 05/19/2023 at 13:32 Approved by: Mika Lovett M.D. on 05/19/2023 at 13:40
[2023-05-19] MEDS: ALBUTEROL/IPRATROPIUM 3 ML AMPUL INH ×3 (12:34→14:59)
--- NOTE | 2023-05-19 12:49 | ED_ITS ---
HPI - General Adult General Chief complaint: Shortness of Breath/Dyspnea Stated complaint: COPD/SOB Time Seen by Provider: 05/19/23 12:47 Source: patient Mode of arrival: Ambulatory History of Present Illness HPI narrative: Patient is a 63-year-old female. History of COPD. Has home nebulizers. Still smokes. Is here for evaluation of a couple days of worsening shortness of breath. Also having chest pressure. No fevers. Nonproductive cough. Has been using her nebulizers at home without improvement. Related Data Home Medications Medication Instructions Recorded Confirmed azathioprine 50 mg tablet 50 mg PO BID 03/11/22 04/20/23 Humira 06/02/22 04/20/23 Previous Rx's Medication Instructions Recorded clonazepam 1 mg tablet 1 mg PO BID #60 tabs 02/28/23 albuterol sulfate 90 mcg/actuation 2 puff inhalation Q4-6H PRN 04/20/23 aerosol inhaler shortness of breath or wheezing #8.5 grams beclomethasone dipropionate 80 1 inh inhalation BID #10.6 grams 04/20/23 mcg/actuation HFA breath activated aerosol (Qvar RediHaler) gabapentin 600 mg tablet 600 mg PO BID #180 tabs 04/20/23 methylprednisolone 4 mg tablets in See Rx Instructions PO PER PKG DIR 04/21/23 a dose pack (Medrol (Jostin)) #21 ea citalopram 40 mg tablet 40 mg PO DAILY #90 tabs 05/10/23 Allergies Allergy/AdvReac Type Severity Reaction Status Date / Time Sulfa (Sulfonamide AdvReac Intermediate ITCHING Verified 05/19/23 12:26 Antibiotics) Review of Systems Constitutional Constitutional: Reports system reviewed and no additional complaints, except as documented Cardiovascular Cardiovascular: Reports system reviewed and no additional complaints, except as documented Respiratory Respiratory: Reports system reviewed and no additional complaints, except as documented Gastrointestinal Gastrointestinal: Reports system reviewed and no additional complaints, except as documented Integumentary/Breasts Skin/Breast: Reports system reviewed and no additional complaints, except as documented Neurologic Neurologic: Reports system reviewed and no additional complaints, except as documented Hematologic/Lymphatic On Anticoagulants: Yes Patient History Medical History Rheumatoid arthritis Peripheral neuropathy Dysphagia (2018) Bilateral tinnitus (2019) Foraminal stenosis of lumbar region Osteoarthritis of carpometacarpal joint of right thumb Chronic pain syndrome Gastritis Chronic obstructive pulmonary disease (07/07/17) Chronic back pain (07/03/14) Female hypogonadism syndrome (11/18/13) Recurrent major depressive disorder, in partial remission (11/18/13) Anxiety (11/18/13) Carpal tunnel syndrome (01/08/11) Gastroesophageal reflux disease without esophagitis (01/08/11) Surgical History Status post vaginal hysterectomy Family History Father Heart disease Mother Heart disease Brother No problems noted. Brother MVA (motor vehicle accident) Social History household members: other Smoking Status: Current every day smoker alcohol intake: former Smoking Status: Current every day smoker tobacco type: cigarettes alcohol intake frequency: 0-2 drinks per day Substance Use Type: does not use and prescription drug Exam Initial Vital Signs Initial Vital Signs: Vital Signs Temperature 97.7 F 05/19/23 12:22 Pulse Rate 72 05/19/23 12:22 Respiratory Rate 42 H 05/19/23 12:22 Blood Pressure 150/82 H 05/19/23 12:22 Pulse Oximetry 88 L 05/19/23 12:22 Oxygen Delivery Method Room Air 05/19/23 12:22 [facility] Head: normal to inspection and normocephalic Resp Effort & Inspection: labored and tachypneic Auscultation: clear to auscultation bilaterally Cardio Rate: regular rate Skin General: no rashes or lesions noted Neuro General: patient alert, patient awake and moves all extremities Extrem General: No edema Course Orders Ordered: ED Orders 05/19/23 12:29 XR chest 1V Stat EKG-12 Lead Stat Measure peak expiratory flow ONCE 05/19/23 13:00 Comprehensive Metabolic Panel Stat NT-proBNP (BNP-Adult 18+) Stat Respiratory Panel (Film Array) Stat Troponin & CK Cardiac Panel Stat 05/19/23 13:28 Complete Blood Count AUTO DIFF Stat D Dimer Stat Acetaminophen (Acetaminophen 325 Mg Tablet) 650 mg PO Q6H PRN PRN Reason: Fever/Mild Pain (1-3) Albuterol (Albuterol 2.5 Mg/3 Ml Neb (Adult)) 2.5 mg INH [id number] PRN PRN Reason: Shortness Of Breath Or Wheezing Azathioprine (Azathioprine 50 Mg Tablet) 50 mg PO BID [facility] Budesonide (Budesonide 0.5 Mg/2 Ml Neb) 0.5 mg INH RTBID [facility] Citalopram Hydrobromide (Citalopram 10 Mg Tablet) 40 mg PO DAILY [facility] Clonazepam (Clonazepam 0.5 Mg Tablet) 1 mg PO BID [facility] Enoxaparin Sodium (Enoxaparin 40 Mg/0.4 Ml Syringe) 40 mg SUBCUT DAILY [facility] Gabapentin (Gabapentin 600 Mg Tablet) 600 mg PO BID [facility] Sodium Chloride (Normal Saline 0.9%) 1,000 mls @ 21 mls/hr IV CONT [facility] Azithromycin 500 mg/ Dextrose 250 mls @ 250 mls/hr IV Q24H [facility] Magnesium Hydroxide (Magnesium Hydroxide 30 Ml Udc) 30 ml PO DAILY PRN PRN Reason: Constipation Methylprednisolone (Methylprednisolone 125 Mg/2 Ml Vial) 60 mg IV Q6HR [facility] Naloxone HCl (Naloxone 0.4 Mg/Ml Vial) 0.2 mg IV Q2MIN PRN PRN Reason: Opiate Reversal Nicotine (Nicotine 14 Patch) 14 mg TOP DAILY [facility] Ondansetron HCl (Ondansetron 4 Mg/2 Ml Inj) 4 mg IV Q8HR PRN PRN Reason: Nausea And Vomiting Discontinued Medications Albuterol/Ipratropium (Albuterol/Ipratropium 3 Ml Ampul) 3 ml INH NOW ONE Stop: 05/19/23 12:30 Last Admin: 05/19/23 12:34 Dose: 3 ml Documented By: DOMENIC Albuterol/Ipratropium (Albuterol/Ipratropium 3 Ml Ampul) 3 ml INH NOW ONE Stop: 05/19/23 12:55 Last Admin: 05/19/23 13:15 Dose: 3 ml Documented By: BORIS Albuterol/Ipratropium (Albuterol/Ipratropium 3 Ml Ampul) 3 ml INH NOW ONE Stop: 05/19/23 14:40 Last Admin: 05/19/23 14:59 Dose: 3 ml Documented By: BORIS Azithromycin (Azithromycin 250 Mg Tablet) 500 mg PO NOW ONE Stop: 05/19/23 14:40 Last Admin: 05/19/23 14:59 Dose: 500 mg Documented By: BORIS Methylprednisolone (Methylprednisolone 125 Mg/2 Ml Vial) 125 mg IV NOW ONE Stop: 05/19/23 12:49 Last Admin: 05/19/23 13:15 Dose: 125 mg Documented By: BORIS Vital Signs Vital signs: Vital Signs - 8 hr 05/19/23 12:22 05/19/23 12:48 05/19/23 13:40 Temperature 97.7 F Pulse Rate 72 72 Respiratory Rate 42 H 17 Blood Pressure 150/82 H Pulse Oximetry 88 L 89 L 90 L Oxygen Delivery Method Room Air Room Air Nasal Cannula Oxygen Flow Rate 2 05/19/23 13:41 05/19/23 13:41 05/19/23 14:00 Temperature Pulse Rate 75 Respiratory Rate 22 22 19 Blood Pressure Pulse Oximetry 87 L 91 94 Oxygen Delivery Method Nasal Cannula Nasal Cannula Nasal Cannula Oxygen Flow Rate 1 2 2 05/19/23 14:30 05/19/23 15:00 05/19/23 15:01 Temperature Pulse Rate 78 72 Respiratory Rate 20 14 Blood Pressure 110/59 L Pulse Oximetry 93 90 L Oxygen Delivery Method Nasal Cannula Nasal Cannula Oxygen Flow Rate 2 2 05/19/23 15:01 05/19/23 15:30 Temperature Pulse Rate 74 76 Respiratory Rate 25 H 25 H Blood Pressure Pulse Oximetry 89 L 92 Oxygen Delivery Method Nasal Cannula Oxygen Flow Rate 2 Medical Decision Making Lab Data Lab results reviewed: Yes I reviewed the patient's lab results. 05/19/23 13:28 05/19/23 13:00 Labs: Lab Results 05/19/23 05/19/23 05/19/23 Range/Units 13:00 13:00 13:28 WBC 8.6 (4.5-11.0) X10^3/uL RBC 4.42 (4.0-5.2) X10^6/uL Hgb 13.8 (12.0-16.0) g/dL Hct 41.5 (36-46) % MCV 93.9 (80-100) fL MCH 31.3 (26-34) PG MCHC 33.3 (30-36) % RDW 16.2 H (11.6-14.8) % Plt Count 305 (150-400) X10^3/uL Neut % (Auto) 50.6 (50-75) % Lymph % (Auto) 39.4 (25-40) % [place] % (Auto) 5.4 (3-14) % Eos % (Auto) 4.0 (2-4) % Baso % (Auto) 0.6 (0-2) % Neut # (Auto) 4400 (6887-4622) /uL Lymph # (Auto) 3400 (5157-8444) /uL [place] # (Auto) 500 (0-900) /uL Eos # (Auto) 300 (0-450) /uL Baso # (Auto) 100 (0-100) /uL D-Dimer 472 (<500) ng/ml Sodium 141 (137-145) mmol/L Potassium 4.5 (3.4-5.1) mmol/L Chloride 110 H (98-107) mmol/L Carbon Dioxide 26 (22-32) mmol/L BUN 11 (7-17) mg/dL Creatinine 0.86 (0.52-1.04) mg/dL Estimated GFR > 60 (>60) mL/min BUN/Creatinine Ratio 12.8 (6-22) Glucose 96 (80-110) mg/dL Calcium 9.9 (8.4-10.2) mg/dL Total Bilirubin 0.7 (0.2-1.3) mg/dL AST 47 H (14-36) IU/L ALT 25 (<35) IU/L Alkaline Phosphatase 108 (38-126) U/L Total Creatine Kinase 97 (30-135) U/L Troponin I Cancelled < 0.012 NT-Pro-B Natriuret Pep 62 (<125) pg/mL Total Protein 8.3 H (6.3-8.2) g/dL Albumin 4.1 (3.5-5.0) g/dL Globulin 4.2 H (1.7-4.1) g/dL Albumin/Globulin Ratio 1.0 (1.0-2.8) Chlamy pneumoniae PCR Not detected (Not Detect) Adenovirus (PCR) Not detected (Not Detect) B.parapertussis DNA PCR Not detected (Not Detecte) Coronavirus OC43 (PCR) Not detected (Not Detect) Coronavirus HKU1 (PCR) Not detected (Not Detect) Coronavirus 229E (PCR) Not detected (Not Detect) SARS-CoV-2 (PCR) Not detected (Not Detecte) Coronavirus NL63 (PCR) Not detected (Not Detect) Human Metapneumovir PCR Not detected (Not Detect) Influenza Type A (PCR) Not detected (Not Detect) Influenza Type B (PCR) Not detected (Not Detect) M. pneumoniae (PCR) Not detected (Not Detect) Parainfluenza 1 (PCR) Not detected (Not Detect) Parainfluenza 2 (PCR) Not detected (Not Detect) Parainfluenza 3 (PCR) Not detected (Not Detect) Parainfluenza 4 (PCR) Not detected (Not Detect) RSV (PCR) Not detected (Not Detect) Entero/Rhino (PCR) Not detected (Not Detect) ECG Data Attestation: I personally reviewed and interpreted this ECG as follows: Interpretation: Sinus rhythm Ventricular rate is 70 Normal axis Normal QRS Normal QTC No ST T wave changes MDM Narrative Medical decision making narrative: Patient has a history of COPD. After nebulizers and steroids patient's wheezing has greatly improved however she is still hypoxic on room air. Saturations improved with just 2 L by nasal cannula. Patient is still requiring oxygen. Needs admission to the hospital. Discussed the case with Dr. Barone who is on- call with the patient's primary doctor who will admit for further evaluation. Discussed need for admission with the patient. She expressed understanding and agreement as well. Discharge Plan Departure Patient Disposition: Admitted As Inpatient Clinical Impression: COPD exacerbation, Hypoxia Admit Date/Time: 05/19/23 15:58 Admit Provider: Anatoly Barone
[2023-05-19] MEDS: methylPREDNISolone 125 MG/2 ML VIAL IV (13:15)
[2023-05-19 13:17] LABS: Basophils Absolute Auto 100 /uL (0-100); Monocytes Absolute Auto 500 /uL (0-900)
[2023-05-19 13:30] LABS: Creatine Kinase 97 U/L (30-135)
[2023-05-19 13:31] LABS: Alanine Aminotransferase 25 IU/L (<35); Albumin 4.1 g/dL (3.5-5.0); Alkaline Phosphatase 108 U/L (38-126); Aspartate Aminotransferase 47 IU/L (14-36); BUN Creatinine Ratio 12.8 (6-22); Bilirubin Total 0.7 mg/dL (0.2-1.3); Blood Urea Nitrogen 11 mg/dL (7-17); Calcium 9.9 mg/dL (8.4-10.2); Carbon Dioxide 26 mmol/L (22-32); Chloride 110 mmol/L (98-107); Estimated Glomerular Filt Rate > 60 mL/min (>60); Globulin 4.2 g/dL (1.7-4.1); Glucose 96 mg/dL (80-110); Potassium 4.5 mmol/L (3.4-5.1); Sodium 141 mmol/L (137-145); Total Protein 8.3 g/dL (6.3-8.2)
[2023-05-19 13:32] LABS: HEMOLYSIS 93 (0-50)
[2023-05-19 13:36] LABS: Add Manual Diff / Slide Review NO; Basophils Percent Auto 0.6 % (0-2); Eosinophils Absolute Auto 300 /uL (0-450); Hematocrit 41.5 % (36-46); Hemoglobin 13.8 g/dL (12.0-16.0); Lymphocytes Absolute Auto 3400 /uL (1100-4500); Lymphocytes Percent Auto 39.4 % (25-40); Mean Corpuscular HGB Conc 33.3 % (30-36); Mean Corpuscular Hemoglobin 31.3 PG (26-34); Mean Corpuscular Volume 93.9 fL (80-100); Monocytes Percent Auto 5.4 % (3-14); Neutrophils Absolute Auto 4400 /uL (1500-7000); Neutrophils Percent Auto 50.6 % (50-75); Platelet Count 305 X10^3/uL (150-400); Red Blood Cell Count 4.42 X10^6/uL (4.0-5.2); Red Cell Distribution Width 16.2 % (11.6-14.8); White Blood Cell Count 8.6 X10^3/uL (4.5-11.0)
[2023-05-19 13:40] LABS: NT-proBNP (BNP-Adult 18+) 62 pg/mL (<125)
[2023-05-19 13:43] LABS: Troponin I < 0.012 ng/mL (0.01-0.034)
[2023-05-19 14:02] LABS: Adenovirus Not Detected (Not Detect); B. parapertussis Not Detected (Not Detecte); Bordetella pertussis Not Detected (Not Detect); Chlamydophila pneumoniae Not Detected (Not Detect); Coronavirus 229E Not Detected (Not Detect); Coronavirus HKU1 Not Detected (Not Detect); Coronavirus NL 63 Not Detected (Not Detect); Coronavirus OC43 Not Detected (Not Detect); Human Metapneumovirus Not Detected (Not Detect); Human Rhinovirus/Enterovirus Not Detected (Not Detect); Influenza A Not Detected (Not Detect); Influenza B Not Detected (Not Detect); Mycoplasma pneumoniae Not Detected (Not Detect); Parainfluenza Virus 1 Not Detected (Not Detect); Parainfluenza Virus 2 Not Detected (Not Detect); Parainfluenza Virus 3 Not Detected (Not Detect); Parainfluenza Virus 4 Not Detected (Not Detect); Respiratory Syncytial Virus Not Detected (Not Detect); SARS- CoV-2 Not Detected (Not Detecte)
--- NOTE | 2023-05-19 14:28 | PC.NURSE ---
Dr. rodriges at bedside
[2023-05-19] MEDS: AZITHROMYCIN 250 MG TABLET 500 MG PO (14:59)
[2023-05-19 15:03] LABS: D Dimer 472 ng/ml (<500)
--- NOTE | 2023-05-19 16:14 | P.HP_ITS ---
History of Present Illness History of Present Illness Date Patient Seen: 05/19/23 Time Patient Seen: 16:14 Chief complaint: COPD/SOB Narrative: Jacquelyn is a 63-year-old female with a history of rheumatoid arthritis COPD chronic back pain gastroesophageal reflux and a longstanding smoking history currently still smoking presents to the emergency department with increasing shortness of breath. Patient states her symptoms started about a week ago where she had increasing cough and some mild shortness of breath. She increased her use of inhalers at home she also says she uses a nebulizer that she got from a friend to help with her breathing. Despite this on Monday of this week her cough continued to progress. She became more and more short of breath. She was having a hard time sleeping getting uncomfortable having a hard time sitting in the chair. She was supposed to take her Humira for her rheumatoid arthritis today call the cancer registrar who told her not to take it and go to the emergency department. She says she was glad she came to the emergency department because she has been quite short of breath having a hard time breathing due to the coughing and air hunger. She says it was difficult to sleep last night. She did have a fever. She has had a productive cough on and off for many years. She does have productive sputum. She says her inhalers were not working. She has not had any palpitations chest pain lower extremity edema. No abdominal pain or concerns with constipation. Patient has never been hospitalized for COPD she does not require oxygen at home. [facility] Medical History Rheumatoid arthritis Peripheral neuropathy Dysphagia (2018) Bilateral tinnitus (2019) Foraminal stenosis of lumbar region Osteoarthritis of carpometacarpal joint of right thumb Chronic pain syndrome Gastritis Chronic obstructive pulmonary disease (07/07/17) Chronic back pain (07/03/14) Female hypogonadism syndrome (11/18/13) Recurrent major depressive disorder, in partial remission (11/18/13) Anxiety (11/18/13) Carpal tunnel syndrome (01/08/11) Gastroesophageal reflux disease without esophagitis (01/08/11) Surgical History Status post vaginal hysterectomy Family History Father Heart disease Mother Heart disease Brother No problems noted. Brother MVA (motor vehicle accident) Social History household members: other Smoking Status: Current every day smoker alcohol intake: former Meds Home Medications and Allergies Home Medications Medication Instructions Recorded Confirmed Type azathioprine 50 mg tablet 50 mg PO BID 03/11/22 04/20/23 History Humira 06/02/22 04/20/23 History clonazepam 1 mg tablet 1 mg PO BID #60 tabs 02/28/23 04/20/23 Rx albuterol sulfate 90 mcg/actuation 2 puff inhalation Q4-6H PRN 04/20/23 04/20/23 Rx aerosol inhaler shortness of breath or wheezing #8.5 grams beclomethasone dipropionate 80 1 inh inhalation BID #10.6 grams 04/20/23 04/20/23 Rx mcg/actuation HFA breath activated aerosol (Qvar RediHaler) gabapentin 600 mg tablet 600 mg PO BID #180 tabs 04/20/23 04/20/23 Rx methylprednisolone 4 mg tablets in See Rx Instructions PO PER PKG DIR 04/21/23 Rx a dose pack (Medrol (Jostin)) #21 ea citalopram 40 mg tablet 40 mg PO DAILY #90 tabs 05/10/23 Rx Allergies Allergy/AdvReac Type Severity Reaction Status Date / Time Sulfa (Sulfonamide AdvReac Intermediate ITCHING Verified 05/19/23 12:26 Antibiotics) Exam Vital Signs (past 8 hours): - 05/19/23 12:22 05/19/23 12:48 05/19/23 13:40 Temperature 97.7 F Pulse Rate 72 72 Respiratory Rate 42 H 17 Blood Pressure 150/82 H Pulse Oximetry 88 L 89 L 90 L Oxygen Delivery Method Room Air Room Air Nasal Cannula Oxygen Flow Rate 2 05/19/23 13:41 05/19/23 13:41 05/19/23 14:00 Temperature Pulse Rate 75 Respiratory Rate 22 22 19 Blood Pressure Pulse Oximetry 87 L 91 94 Oxygen Delivery Method Nasal Cannula Nasal Cannula Nasal Cannula Oxygen Flow Rate 1 2 2 05/19/23 14:30 05/19/23 15:00 05/19/23 15:01 Temperature Pulse Rate 78 72 Respiratory Rate 20 14 Blood Pressure 110/59 L Pulse Oximetry 93 90 L Oxygen Delivery Method Nasal Cannula Nasal Cannula Oxygen Flow Rate 2 2 05/19/23 15:01 05/19/23 15:30 05/19/23 16:00 Temperature Pulse Rate 74 76 78 Respiratory Rate 25 H 25 H 17 Blood Pressure Pulse Oximetry 89 L 92 91 Oxygen Delivery Method Nasal Cannula Nasal Cannula Oxygen Flow Rate 2 2 Oxygen Delivery Method Nasal Cannula Oxygen Flow Rate 2 Narrative Exam Narrative: ? Gen.: Alert and oriented x3 Mild increased work of breathing HEENT: NCAT PERRLA nares are patent oral mucosa is moist no tonsillar hypertrophy neck is supple without lymphadenopathy no thyroid enlargement. Cardio: S1-S2 regular rate and rhythm no murmurs appreciated. Respiratory: patient with mild increased work of breathing with some scattered crackles and rhonchi in both lung holguin Abdomen: Soft nontender no rebound or guarding no liver spleen enlargement no appreciable hernias Extremities: Full range of motion no appreciable weakness no cyanosis or edema. Neurologic: Grossly intact. Objective Labs 05/19/23 13:28 05/19/23 13:00 Labs: Laboratory Results - last 24 hr 05/19/23 05/19/23 05/19/23 13:00 13:00 13:28 WBC 8.6 RBC 4.42 Hgb 13.8 Hct 41.5 MCV 93.9 MCH 31.3 MCHC 33.3 RDW 16.2 H Plt Count 305 Neut % (Auto) 50.6 Lymph % (Auto) 39.4 [place] % (Auto) 5.4 Eos % (Auto) 4.0 Baso % (Auto) 0.6 Neut # (Auto) 4400 Lymph # (Auto) 3400 [place] # (Auto) 500 Eos # (Auto) 300 Baso # (Auto) 100 D-Dimer 472 Sodium 141 Potassium 4.5 Chloride 110 H Carbon Dioxide 26 BUN 11 Creatinine 0.86 Estimated GFR > 60 BUN/Creatinine Ratio 12.8 Glucose 96 Calcium 9.9 Total Bilirubin 0.7 AST 47 H ALT 25 Alkaline Phosphatase 108 Total Creatine Kinase 97 Troponin I Cancelled < 0.012 NT-Pro-B Natriuret Pep 62 Total Protein 8.3 H Albumin 4.1 Globulin 4.2 H Albumin/Globulin Ratio 1.0 Chlamy pneumoniae PCR Not detected Adenovirus (PCR) Not detected B.parapertussis DNA PCR Not detected Coronavirus OC43 (PCR) Not detected Coronavirus HKU1 (PCR) Not detected Coronavirus 229E (PCR) Not detected SARS-CoV-2 (PCR) Not detected Coronavirus NL63 (PCR) Not detected Human Metapneumovir PCR Not detected Influenza Type A (PCR) Not detected Influenza Type B (PCR) Not detected M. pneumoniae (PCR) Not detected Parainfluenza 1 (PCR) Not detected Parainfluenza 2 (PCR) Not detected Parainfluenza 3 (PCR) Not detected Parainfluenza 4 (PCR) Not detected RSV (PCR) Not detected Entero/Rhino (PCR) Not detected Assessment & Plan Assessment and plan (1) COPD exacerbation: Status: Acute (2) Rheumatoid arthritis: Qualifiers: Rheumatoid arthritis location: unspecified site Rheumatoid factor presence: with rheumatoid factor Qualified Code(s): M05.9 - Rheumatoid arthritis with rheumatoid factor, unspecified Status: Chronic (3) Respiratory failure: Status: Acute Plan COPD exacerbation patient with longstanding history of smoking with history of COPD no prior hospitalizations will be admitted for exacerbation of COPD. She will be admitted as an inpatient. She will have nasal cannula oxygen to maintain sats above 90% patient is not a CO2 retainer. She will be started on IV steroids 60 mg q.6 hours patient will have respiratory therapy per protocol with albuterol and duo nebulizers as needed. She will continue her inhaled corticosteroids. Will go ahead and start her on appropriate treatment for COPD exacerbation with azithromycin. She of monitoring of her blood counts electrolytes and oxygen levels. She is a full code. She is not known to be aware of CO2 retention I will hold off on an ABG at this point because she is stable. Acute hypoxic respiratory failure due to underlying COPD exacerbation. Patient is requiring oxygen to maintain saturations. On arrival her saturations were in the low to mid 80s. And has improved with oxygenation at in held albuterol and nebulizers and steroids. She will be admitted to the hospital for further closely monitoring of her respiratory status. UOP Rheumatoid arthritis patient has a known history of rheumatoid arthritis she is immune compromised that she is on Enbrel and azathioprine. She will continue to hold her Enbrel will continue azathioprine in the hospital. Monitor for worsening signs of her infection. Anxiety. Patient will be maintained on her citalopram and her clonazepam which she takes intermittently. Chronic low back pain. Patient is requiring gabapentin in her medication will be refilled for this Smoker. Patient was counseled about smoking cessation. Nicotine patch offered to the patient. And quitting techniques were reviewed. DVT prophylaxis with Lovenox Code status patient is full code Disposition and plan admit to the hospital anticipate staying greater than 2 midnights
[2023-05-19] MEDS: methylPREDNISolone 125 MG/2 ML VIAL 60 MG IV ×2 (18:47→23:47)
--- NOTE | 2023-05-19 18:55 | PC.NURSE ---
Patient arrived to room 205 at approximately 1710 this evening. She is A&Ox4, and independent in her room. She has SOB with activity and at rest. She is currently on 2 LNC, with 02 saturation at 90 % with activity and up to 94% at rest. Upper lobes with expiratory wheezes and she reports feeling fatigued. She is able to eat dinner. She is oriented to her room, admission assessment completed, continuous monitoring.
[2023-05-19] MEDS: BUDESONIDE 0.5 MG/2 ML NEB INH (19:57)
[2023-05-19] MEDS: clonazePAM 0.5 MG TABLET 1 MG PO (20:14)
[2023-05-19] MEDS: GABAPENTIN 600 MG TABLET PO (20:20)
[2023-05-20 00:20] VITALS: BP 105/63; PULSE 73; RESP 16; TEMP 35.9; O2SAT 95
[2023-05-20] MEDS: methylPREDNISolone 125 MG/2 ML VIAL 60 MG IV (05:08)
[2023-05-20 05:12] LABS: Add Manual Diff / Slide Review NO; Basophils Absolute Auto 0 /uL (0-100); Basophils Percent Auto 0.1 % (0-2); Eosinophils Absolute Auto 0 /uL (0-450); Hematocrit 41.5 % (36-46); Hemoglobin 13.7 g/dL (12.0-16.0); Lymphocytes Absolute Auto 1100 /uL (1100-4500); Mean Corpuscular HGB Conc 33.1 % (30-36); Mean Corpuscular Hemoglobin 31.2 PG (26-34); Mean Corpuscular Volume 94.1 fL (80-100); Monocytes Absolute Auto 100 /uL (0-900); Monocytes Percent Auto 0.7 % (3-14); Neutrophils Absolute Auto 12800 /uL (1500-7000); Neutrophils Percent Auto 91.2 % (50-75); Platelet Count 312 X10^3/uL (150-400); Red Blood Cell Count 4.41 X10^6/uL (4.0-5.2); Red Cell Distribution Width 16.1 % (11.6-14.8)
[2023-05-20 05:24] LABS: Alanine Aminotransferase 23 IU/L (<35); Alkaline Phosphatase 95 U/L (38-126); Aspartate Aminotransferase 30 IU/L (14-36); BUN Creatinine Ratio 18.9 (6-22); Bilirubin Total 0.5 mg/dL (0.2-1.3); Blood Urea Nitrogen 21 mg/dL (7-17); Calcium 9.8 mg/dL (8.4-10.2); Carbon Dioxide 29 mmol/L (22-32); Chloride 106 mmol/L (98-107); Estimated Glomerular Filt Rate 56 mL/min (>60); Glucose 152 mg/dL (80-110); HEMOLYSIS < 15 (0-50); Potassium 4.6 mmol/L (3.4-5.1); Sodium 140 mmol/L (137-145)
[2023-05-20 07:14] VITALS: BP 111/60; PULSE 74; RESP 19; TEMP 36.3; O2SAT 93
--- NOTE | 2023-05-20 07:31 | P.PN_ITS ---
Subjective Subjective Date Patient Seen: 05/20/23 Time Patient Seen: 07:31 Interval history: Patient seen evaluated. Still shortness of breath with wheezing. She feels like nebulizers are helping. For the 1st time for 3 days he had a good meal last night. She slept pretty well. She says she wants to go home but still on oxygen and knows that. She is tolerating steroids well as she is been on those before. Antibiotics are working as well. No problems with urination or bowel movements. Still coughing not really productive white blood cell counts elevated I am assuming due to steroids. Exam Vital Signs (past 8 hours): - 05/20/23 00:20 05/20/23 07:14 Temperature 96.6 F L 97.3 F L Pulse Rate 73 74 Respiratory Rate 16 19 Blood Pressure 105/63 111/60 Pulse Oximetry 95 93 Oxygen Flow Rate 2 2 Oxygen Delivery Method Nasal Cannula Oxygen Flow Rate 2 Narrative Exam Narrative: Gen.: Alert good historian. Mild breathlessness while talking HEENT: Pupils equal round and reactive or mucosa is moist neck is supple Cardio: S1-S2 regular rate and rhythm no murmurs appreciated. Respiratory: Lungs show decreased breath sounds throughout. Some mild rhonchorous and crackle breath sounds Abdomen: Soft nontender no rebound or guarding no liver spleen enlargement no appreciable hernias Extremities: Full range of motion no appreciable weakness no cyanosis or edema. Neurologic: Grossly intact. Objective Labs 05/20/23 05:05 05/20/23 05:05 Labs: Laboratory Results - last 24 hr 05/19/23 05/19/23 05/19/23 13:00 13:00 13:28 WBC 8.6 RBC 4.42 Hgb 13.8 Hct 41.5 MCV 93.9 MCH 31.3 MCHC 33.3 RDW 16.2 H Plt Count 305 Neut % (Auto) 50.6 Lymph % (Auto) 39.4 [place] % (Auto) 5.4 Eos % (Auto) 4.0 Baso % (Auto) 0.6 Neut # (Auto) 4400 Lymph # (Auto) 3400 [place] # (Auto) 500 Eos # (Auto) 300 Baso # (Auto) 100 D-Dimer 472 Sodium 141 Potassium 4.5 Chloride 110 H Carbon Dioxide 26 BUN 11 Creatinine 0.86 Estimated GFR > 60 BUN/Creatinine Ratio 12.8 Glucose 96 Calcium 9.9 Total Bilirubin 0.7 AST 47 H ALT 25 Alkaline Phosphatase 108 Total Creatine Kinase 97 Troponin I Cancelled < 0.012 NT-Pro-B Natriuret Pep 62 Total Protein 8.3 H Albumin 4.1 Globulin 4.2 H Albumin/Globulin Ratio 1.0 Chlamy pneumoniae PCR Not detected Adenovirus (PCR) Not detected B.parapertussis DNA PCR Not detected Coronavirus OC43 (PCR) Not detected Coronavirus HKU1 (PCR) Not detected Coronavirus 229E (PCR) Not detected SARS-CoV-2 (PCR) Not detected Coronavirus NL63 (PCR) Not detected Human Metapneumovir PCR Not detected Influenza Type A (PCR) Not detected Influenza Type B (PCR) Not detected M. pneumoniae (PCR) Not detected Parainfluenza 1 (PCR) Not detected Parainfluenza 2 (PCR) Not detected Parainfluenza 3 (PCR) Not detected Parainfluenza 4 (PCR) Not detected RSV (PCR) Not detected Entero/Rhino (PCR) Not detected 05/20/23 05:05 WBC 14.0 H D RBC 4.41 Hgb 13.7 Hct 41.5 MCV 94.1 MCH 31.2 MCHC 33.1 RDW 16.1 H Plt Count 312 Neut % (Auto) 91.2 H D Lymph % (Auto) 8.0 L D [place] % (Auto) 0.7 L Eos % (Auto) 0.0 L Baso % (Auto) 0.1 Neut # (Auto) 54025 H Lymph # (Auto) 1100 [place] # (Auto) 100 Eos # (Auto) 0 Baso # (Auto) 0 D-Dimer Sodium 140 Potassium 4.6 Chloride 106 Carbon Dioxide 29 BUN 21 H Creatinine 1.11 H Estimated GFR 56 L BUN/Creatinine Ratio 18.9 Glucose 152 H Calcium 9.8 Total Bilirubin 0.5 AST 30 ALT 23 Alkaline Phosphatase 95 Total Creatine Kinase Troponin I NT-Pro-B Natriuret Pep Total Protein 8.0 Albumin 4.0 Globulin 4.0 Albumin/Globulin Ratio 1.0 Chlamy pneumoniae PCR Adenovirus (PCR) B.parapertussis DNA PCR Coronavirus OC43 (PCR) Coronavirus HKU1 (PCR) Coronavirus 229E (PCR) SARS-CoV-2 (PCR) Coronavirus NL63 (PCR) Human Metapneumovir PCR Influenza Type A (PCR) Influenza Type B (PCR) M. pneumoniae (PCR) Parainfluenza 1 (PCR) Parainfluenza 2 (PCR) Parainfluenza 3 (PCR) Parainfluenza 4 (PCR) RSV (PCR) Entero/Rhino (PCR) [facility] Medical History Rheumatoid arthritis Peripheral neuropathy Dysphagia (2018) Bilateral tinnitus (2019) Foraminal stenosis of lumbar region Osteoarthritis of carpometacarpal joint of right thumb Chronic pain syndrome Gastritis Chronic obstructive pulmonary disease (07/07/17) Chronic back pain (07/03/14) Female hypogonadism syndrome (11/18/13) Recurrent major depressive disorder, in partial remission (11/18/13) Anxiety (11/18/13) Carpal tunnel syndrome (01/08/11) Gastroesophageal reflux disease without esophagitis (01/08/11) Surgical History Status post vaginal hysterectomy Family History Father Heart disease Mother Heart disease Brother No problems noted. Brother MVA (motor vehicle accident) Social History household members: other Smoking Status: Current every day smoker alcohol intake: former Assessment & Plan Assessment and plan (1) Respiratory failure: Qualifiers: Chronicity: acute Respiratory failure complication: hypoxia Qualified Code(s): J96.01 - Acute respiratory failure with hypoxia Status: Acute (2) COPD exacerbation: Status: Acute (3) Rheumatoid arthritis: Qualifiers: Rheumatoid arthritis location: unspecified site Rheumatoid factor presence: with rheumatoid factor Qualified Code(s): M05.9 - Rheumatoid arthritis with rheumatoid factor, unspecified Status: Chronic Plan COPD with acute exacerbation. Patient is still requiring oxygen continue with oxygen nebulizers IV steroids and antibiotics. Feeling better. Feeling like she is breathing easier. Continue to wean down oxygen. Will change from IV steroids to oral steroids. Continue with ambulation mobilizing as needed Acute hypoxic respiratory failure. Due to underlying COPD exacerbation. Hopefully we can continue to do crease O2. As her COPD if improves. Rheumatoid arthritis. She is immune compromised on Enbrel and azathioprine. Enbrel is being held continue with azathioprine. White blood cell elevated probably due to steroids. Anxiety. Continue with citalopram and clonazepam Low back pain. Continue with gabapentin. Smoker. Continued education. DVT prophylaxis with Lovenox Disposition and plan. Convert to oral steroids later today. Continue with IV antibiotics. Hopefully improvement of oxygenation with the steroids antibiotics and nebulizers. Anticipate further hospitalization for 24-48 hours Quality VTE Deep Vein Thrombosis/Pulmonary Embolism Present on Admission: No
[2023-05-20 07:41] VITALS: PULSE 74; RESP 18; O2SAT 91
[2023-05-20] MEDS: ENOXAPARIN 40 MG/0.4 ML SYRINGE SUBCUT (08:59)
[2023-05-20] MEDS: GABAPENTIN 600 MG TABLET PO ×2 (09:00→20:19)
[2023-05-20] MEDS: clonazePAM 0.5 MG TABLET 1 MG PO ×2 (09:00→20:19)
[2023-05-20] MEDS: CITALOPRAM 10 MG TABLET 40 MG PO (09:01)
[2023-05-20] MEDS: levoFLOXacin 500 MG/100 ML PIGGYBACK 100 MG IV (09:01)
[2023-05-20] MEDS: BUDESONIDE 0.5 MG/2 ML NEB INH ×2 (09:12→19:38)
[2023-05-20] MEDS: predniSONE 20 MG TABLET 60 MG PO (12:06)
--- NOTE | 2023-05-20 13:26 | CM.DANOTE ---
Reviewed EMR and team rounds for pt's medical status. Pt was sleeping at time of this assessment, appearing comfortable. Payor: [employer] PCP: Dr. Frankel Pt is a 63 year-old F with a hx of COPD who presented to the ED on 05/19/23 with worsening shortness of breath and cough over the last week. She has a long hx of smoking, and remains a current smoker. She had tried using her inhalers and nebulizer at home with no benefit. ED eval diagnosed her with a COPD exacerbation and acute hypoxic respiratory failure. She was admitted and started on IV ABO's, nasal cannula O2, and IV steroids. Pt resides here in [place] in her home w/SO. Pending progress over the weekend with IV ABO's/steroids/nebulizers will determine any needs for OP resources. DCP will continue to follow and assist with final recommendations. Discharge Planning/Care Management CM Discharge Assessment Start: 05/20/23 13:23 Freq: Status: Active Protocol: Document 05/20/23 13:24 DPL (Rec: 05/20/23 13:26 DPL [id number]) Discharge Planning Assessment Assigned Bottler Helper SHADY Sheppard Advance Directives? No Advance Directives on File No History Provided By Medical Record Expected Length of Stay 3 Has Patient been admitted in last 30 No days? Prior Living Arrangements House Household Members significant other Type of transporation used prior to Drives own vehicle admit Independent with ADL's Yes Is patient alert and oriented? Yes Comment N/A Caregiver for Another No Comment Pending efficacy of IV ABO's and therapy needs. Barriers to Discharge No Discharge Plan Home Transportation Arrangement Patient's friend can likely provide transport Additional Comment Evolving. Whiteboard Updated in Patient Room with Yes name and ext. # of Bottler Helper Review Status In Process Please Provide Date Initial DC 05/20/23 Assessment Was Performed
[2023-05-20 15:00] VITALS: RESP 18
--- NOTE | 2023-05-20 15:13 | CM.MNRNOTE ---
Pt resting at intervals T/O day. O2 2L SpO2 95% Some SOB w/excertion. HL intact/patent. Steroids started. Call light w/in reach, pt calls appropriately for needs. Continue w/plan of care.
[2023-05-20 19:38] VITALS: PULSE 60; RESP 18; O2SAT 93
[2023-05-20] MEDS: ALBUTEROL 2.5 MG/3 ML NEB (ADULT) INH (19:45)
[2023-05-20 23:00] VITALS: BP 114/57; PULSE 68; RESP 18; TEMP 36.2; O2SAT 94
[2023-05-21 06:33] LABS: Add Manual Diff / Slide Review NO; Basophils Absolute Auto 0 /uL (0-100); Basophils Percent Auto 0.2 % (0-2); Eosinophils Absolute Auto 0 /uL (0-450); Hematocrit 37.5 % (36-46); Hemoglobin 12.2 g/dL (12.0-16.0); Lymphocytes Absolute Auto 1900 /uL (1100-4500); Lymphocytes Percent Auto 9.2 % (25-40); Mean Corpuscular HGB Conc 32.7 % (30-36); Mean Corpuscular Volume 94.7 fL (80-100); Monocytes Absolute Auto 900 /uL (0-900); Monocytes Percent Auto 4.2 % (3-14); Neutrophils Absolute Auto 18000 /uL (1500-7000); Neutrophils Percent Auto 86.4 % (50-75); Platelet Count 297 X10^3/uL (150-400); Red Blood Cell Count 3.96 X10^6/uL (4.0-5.2); Red Cell Distribution Width 16.4 % (11.6-14.8); White Blood Cell Count 20.8 X10^3/uL (4.5-11.0)
[2023-05-21 06:43] LABS: BUN Creatinine Ratio 29.4 (6-22); Blood Urea Nitrogen 32 mg/dL (7-17); Calcium 9.7 mg/dL (8.4-10.2); Carbon Dioxide 29 mmol/L (22-32); Chloride 108 mmol/L (98-107); Estimated Glomerular Filt Rate 57 mL/min (>60); Glucose 123 mg/dL (80-110); HEMOLYSIS 31 (0-50); Potassium 4.8 mmol/L (3.4-5.1); Sodium 140 mmol/L (137-145)
[2023-05-21 08:00] VITALS: BP 106/57; PULSE 60; RESP 16; TEMP 36.6; O2SAT 97
[2023-05-21 08:23] VITALS: PULSE 58; RESP 16; O2SAT 91
[2023-05-21] MEDS: ALBUTEROL/IPRATROPIUM 3 ML AMPUL INH ×2 (08:23→13:03)
[2023-05-21] MEDS: BUDESONIDE 0.5 MG/2 ML NEB INH (08:33)
[2023-05-21] MEDS: levoFLOXacin 250 MG/50 ML PIGGYBACK 50 MG IV (09:19)
[2023-05-21] MEDS: clonazePAM 0.5 MG TABLET 1 MG PO (09:19)
[2023-05-21] MEDS: ENOXAPARIN 40 MG/0.4 ML SYRINGE SUBCUT (09:19)
[2023-05-21] MEDS: GABAPENTIN 600 MG TABLET PO (09:20)
[2023-05-21] MEDS: predniSONE 20 MG TABLET 60 MG PO (09:21)
[2023-05-21] MEDS: CITALOPRAM 10 MG TABLET 40 MG PO (09:21)
[2023-05-21 13:03] VITALS: PULSE 60; RESP 14; O2SAT 90
--- NOTE | 2023-05-21 13:13 | PM.DS.1 ---
History of Present Illness History of Present Illness Chief complaint: COPD/SOB Narrative: Jacquelyn is a 63-year-old female with a history of rheumatoid arthritis COPD chronic back pain gastroesophageal reflux and a longstanding smoking history currently still smoking presents to the emergency department with increasing shortness of breath. Patient states her symptoms started about a week ago where she had increasing cough and some mild shortness of breath. She increased her use of inhalers at home she also says she uses a nebulizer that she got from a friend to help with her breathing. Despite this on Monday of this week her cough continued to progress. She became more and more short of breath. She was having a hard time sleeping getting uncomfortable having a hard time sitting in the chair. She was supposed to take her Humira for her rheumatoid arthritis today call the grounds maintenance worker who told her not to take it and go to the emergency department. She says she was glad she came to the emergency department because she has been quite short of breath having a hard time breathing due to the coughing and air hunger. She says it was difficult to sleep last night. She did have a fever. She has had a productive cough on and off for many years. She does have productive sputum. She says her inhalers were not working. She has not had any palpitations chest pain lower extremity edema. No abdominal pain or concerns with constipation. Patient has never been hospitalized for COPD she does not require oxygen at home. Discharge Providers Provider Date of admission: 05/19/23 15:58 Discharge Date: 05/21/23 Primary care physician: Kamaljit Frankel MD Consults: 05/19/23 16:22 Consult to Cardio/Pulmonary Rehabilitation Routine Comment: Physician Instructions: Evaluate and treat Discharge provider: Anatoly Barone MD Summary Hospital Course Discharge Diagnosis: COPD exacerbation Acute hypoxic respiratory failure Rheumatoid arthritis on Enbrel immunocompromised Chronic low back pain Smoker Generalized anxiety disorder Hospital Course: Patient was admitted to the hospital because of exacerbation of underlying COPD. Patient requiring oxygen which she is not oxygen dependent she is not a CO2 retainer. She was admitted the hospital on IV steroids IV antibiotics and nebulizers. Over the ensuing 48 hours patient had improvement of respiratory distress. Was able to maintain saturations off oxygen. During her hospital stay she was maintained on IV antibiotics. Her electrolytes were checked and monitored. She was counseled about smoking sensation. She has a Chantix prescription home which she will start. We had discussion about any inhalers at home. She does have a QVAR inhaler and albuterol inhaler and nebulizer machine that she uses at home. Patient will have a follow-up in 7 days. Exam Vital Signs (past 8 hours): - 05/21/23 08:00 12 08:23 05/21/23 13:03 Temperature 97.8 F Pulse Rate 60 58 L 60 Respiratory Rate 16 16 14 Blood Pressure 106/57 L Pulse Oximetry 97 91 90 L Oxygen Delivery Method Room Air Room Air Oxygen Flow Rate 2 Fraction of Inspired Oxygen 28 SaO2/FiO2 Ratio 325 Oxygen Delivery Method Room Air Oxygen Flow Rate 2 Objective Labs 05/21/23 06:00 05/21/23 06:00 Labs: Laboratory Results - last 24 hr 05/21/23 06:00 WBC 20.8 H RBC 3.96 L Hgb 12.2 Hct 37.5 MCV 94.7 MCH 31.0 MCHC 32.7 RDW 16.4 H Plt Count 297 Neut % (Auto) 86.4 H Lymph % (Auto) 9.2 L [place] % (Auto) 4.2 Eos % (Auto) 0.0 L Baso % (Auto) 0.2 Neut # (Auto) 45321 H Lymph # (Auto) 1900 [place] # (Auto) 900 Eos # (Auto) 0 Baso # (Auto) 0 Sodium 140 Potassium 4.8 Chloride 108 H Carbon Dioxide 29 BUN 32 H Creatinine 1.09 H Estimated GFR 57 L BUN/Creatinine Ratio 29.4 H Glucose 123 H Calcium 9.7 PFSH Medical History Rheumatoid arthritis Peripheral neuropathy Dysphagia (2018) Bilateral tinnitus (2019) Foraminal stenosis of lumbar region Osteoarthritis of carpometacarpal joint of right thumb Chronic pain syndrome Gastritis Chronic obstructive pulmonary disease (07/07/17) Chronic back pain (07/03/14) Female hypogonadism syndrome (11/18/13) Recurrent major depressive disorder, in partial remission (11/18/13) Anxiety (11/18/13) Carpal tunnel syndrome (01/08/11) Gastroesophageal reflux disease without esophagitis (01/08/11) Surgical History Status post vaginal hysterectomy Family History Father Heart disease Mother Heart disease Brother No problems noted. Brother MVA (motor vehicle accident) Social History household members: significant other Smoking Status: Current every day smoker alcohol intake: former Discharge Plan Discharge Plan Patient Disposition: Home Discharge orders & Medications Prescriptions: New prednisone 20 mg tablet 20 mg PO DAILY Qty: 30 0RF Rx Instructions: 60mg for 3 days 40mg for 3 days 20 mg for 3 days 10 mg for 3 days levofloxacin 500 mg tablet 500 mg PO DAILY Qty: 5 0RF Continued clonazepam 1 mg tablet 1 mg PO BID Qty: 60 2RF citalopram 40 mg tablet 40 mg PO DAILY Qty: 90 3RF (DME) Humira 0 .Route .MEDSUPPLY albuterol sulfate 90 mcg/actuation HFA aerosol inhaler 2 puff inhalation Q4-6H PRN (Reason: shortness of breath or wheezing) Qty: 8.5 5RF gabapentin 600 mg tablet 600 mg PO BID Qty: 180 3RF Qvar RediHaler 80 mcg/actuation HFA aerosol breath activated 1 inh INHALATION BID Qty: 10.6 3RF Follow up/Referrals: Kamaljit Frankel MD [Primary Care Provider] - Visit Report/Discharge Packet Stand Alone Forms: Patient Portal/API, Stroke Signs & Symptoms Discharge Data Primary Care Provider: Kamaljit Frankel Quality VTE Deep Vein Thrombosis/Pulmonary Embolism Present on Admission: No
--- NOTE | 2023-05-21 13:43 | CM.DPC ---
DCP Discharge Home Per MD, pt was able to be transitioned from steroids and IV abx to orals and on room air and medically stable to d/c home today with outpt f/u with PCP in 7 days. No identified barriers to discharge. Per Rn, pt has been independent in room and able to ambulate independently and no concerns with d/c at this time. Plan: Patient to d/c home today via SO POV and outpt f/u and no further SW needs at this time. SHADY Troncoso
--- NOTE | 2023-05-22 14:02 | RT ---
Called patient to discuss pulmonary rehab. No answer. Left message.
== END 2023-05-21 13:50 | disposition home or self-care (01) | DRG 140 ==
LOC: ED 15:59 → AC 15:59
PROVIDERS: Admitting Provider Family Medicine; Emergency Provider Emergency Medicine; Family Provider Internal Medicine; PCP Internal Medicine; Referring Provider Emergency Medicine; Visit Provider Family Medicine
DX: J44.1 Chronic obstructive pulmonary disease with (acute) exacerbation (principal); J96.01 Acute respiratory failure with hypoxia; F17.210 Nicotine dependence, cigarettes, uncomplicated; M05.9 Rheumatoid arthritis with rheumatoid factor, unspecified; D84.821 Immunodeficiency due to drugs; G89.29 Other chronic pain; M54.50 Low back pain, unspecified; F41.1 Generalized anxiety disorder; Z79.624 Long term (current) use of inhibitors of nucleotide synthesis
CPT/HCPCS: 36415; 71045; 80048; 80053; 82550; 83880; 84484; 85025; 85379; 87633; 93005; 94640; 94760; 96374; 99223; 99232; 99238; 99285; J1650; J1956; J2930; J7500; J7613

== ENCOUNTER → 2023-12-11 10:20 | Outpatient (CLI) | payer OTHER, MEDICAID, SELFPAY ==
[2021-10-13 14:37] VITALS: PULSE 81; RESP 16; O2SAT 99
[2023-05-19 17:05] VITALS: BMI 22.1
--- NOTE | 2023-12-11 10:21 | DI.CT.S_ITS ---
PROCEDURE: CT LUNG LOW DOSE SCREENING INDICATIONS: lung cancer screening TECHNIQUE: Noncontrast 2.0-2.5 mm thick sections acquired from the pulmonary apices to the posterior costophrenic angles. 7 mm thick axial MIP, and 5 mm coronal and sagittal reformats were then acquired. For radiation dose reduction, the following was used: automated exposure control, adjustment of mA and/or kV according to patient size. COMPARISON: None. FINDINGS: Image quality: Diagnostic. Lower Neck: No enlarged lymph nodes. Thyroid: No thyroid nodules which require sonographic follow up, per consensus guidelines. Axillae: No enlarged lymph nodes. Chest Wall: Unremarkable. Bones: Unremarkable. Lungs and Pleura: No pneumothorax or pleural effusions. Moderate centrilobular and paraseptal emphysema. Spiculated mass in the right upper lung measuring approximately 0.7 x 1.1 cm (3/66). Additional 4 millimeter nodule in the right middle lobe (3/205, MIP image 106). Heart: Heart size is normal. No pericardial effusion. Single-vessel coronary artery calcifications. Thoracic Vessels: The aorta and pulmonary arteries demonstrate normal size. Mediastinum and Priscila: No enlarged lymph nodes. Esophagus: No wall thickening. No hiatal hernia. Upper Abdomen: Visualized upper abdomen solid organs and bowel loops appear normal. IMPRESSION: Right upper lobe spiculated mass measuring up to 1.7 cm. Additional findings as above. LUNG-RADS 4 B; recommend diagnostic CT chest with and without contrast, PET-CT and/or tissue sampling. Clinically Significant Non-pulmonary Findings: None. Approved by: Glenna Avila M.D.,Ph.D. on 12/11/2023 at 18:29
== END ==
LOC: CT 10:21
PROVIDERS: Family Provider Internal Medicine; PCP Internal Medicine; Referring Provider Internal Medicine; Visit Provider Internal Medicine
DX: Z12.2 Encounter for screening for malignant neoplasm of respiratory organs (principal); F17.218 Nicotine dependence, cigarettes, with other nicotine-induced disorders; J44.9 Chronic obstructive pulmonary disease, unspecified; R91.8 Other nonspecific abnormal finding of lung field; I25.10 Atherosclerotic heart disease of native coronary artery without angina pectoris
CPT/HCPCS: 71271

== ENCOUNTER → 2023-12-26 14:27 | Outpatient (CLI) | payer OTHER, MEDICAID, SELFPAY ==
[2021-10-13 14:37] VITALS: PULSE 81; RESP 16; O2SAT 99
[2023-05-19 17:05] VITALS: BMI 22.1
[2023-12-26 15:09] LABS: Hematocrit 38.5 % (36-46); Hemoglobin 12.8 g/dL (12.0-16.0); Mean Corpuscular HGB Conc 33.4 % (30-36); Mean Corpuscular Hemoglobin 31.4 PG (26-34); Mean Corpuscular Volume 94.2 fL (80-100); Platelet Count 276 X10^3/uL (150-400); Red Blood Cell Count 4.08 X10^6/uL (4.0-5.2); Red Cell Distribution Width 15.7 % (11.6-14.8); White Blood Cell Count 6.7 X10^3/uL (4.5-11.0)
[2023-12-26 15:16] LABS: Alanine Aminotransferase 19 IU/L (<35); Albumin Globulin Ratio 1.1 (1.0-2.8); Alkaline Phosphatase 85 U/L (38-126); Aspartate Aminotransferase 37 IU/L (14-36); BUN Creatinine Ratio 7.7 (6-22); Bilirubin Total 0.4 mg/dL (0.2-1.3); Blood Urea Nitrogen 10 mg/dL (7-17); C-Reactive Protein Quant < 0.5 mg/dL (<1.0); Calcium 8.9 mg/dL (8.4-10.2); Carbon Dioxide 31 mmol/L (22-32); Chloride 108 mmol/L (98-107); Estimated Glomerular Filt Rate 46 mL/min (>60); Globulin 3.5 g/dL (1.7-4.1); Glucose 151 mg/dL (80-110); HEMOLYSIS < 15 (0-50); Potassium 3.8 mmol/L (3.4-5.1); Sodium 142 mmol/L (137-145); Total Protein 7.5 g/dL (6.3-8.2)
[2023-12-26 15:37] LABS: Erythrocyte Sedimentation Rate 38 MM/HR (0-20)
== END ==
PROVIDERS: Family Provider Internal Medicine; PCP Internal Medicine; Referring Provider Specialist/Technologist Athletic Trainer; Visit Provider Specialist/Technologist Athletic Trainer
DX: M05.9 Rheumatoid arthritis with rheumatoid factor, unspecified (principal)
CPT/HCPCS: 36415; 80053; 83516; 83520; 85027; 85651; 86140

== ENCOUNTER → 2024-01-12 14:42 | Outpatient (CLI) | payer OTHER, MEDICAID, SELFPAY ==
[2021-10-13 14:37] VITALS: PULSE 81; RESP 16; O2SAT 99
[2023-05-19 17:05] VITALS: BMI 22.1
== END ==
PROVIDERS: Family Provider Internal Medicine; PCP Internal Medicine; Referring Provider Internal Medicine Critical Care Medicine; Visit Provider Internal Medicine Critical Care Medicine
DX: J44.9 Chronic obstructive pulmonary disease, unspecified (principal); F17.210 Nicotine dependence, cigarettes, uncomplicated; R94.2 Abnormal results of pulmonary function studies
CPT/HCPCS: 94060; 94726; 94729

== ENCOUNTER 2024-01-16 06:36 | Observation (INO) | payer OTHER, MEDICAID, SELFPAY ==
[2021-10-13 14:37] VITALS: PULSE 81; RESP 16; O2SAT 99
[2023-05-19 17:05] VITALS: BMI 22.1
[2024-01-16] VITALS (16 sets, daily range): BP systolic 103–166; BP diastolic 54–94; PULSE 50–610; RESP 12–26; TEMP 35.6–37; O2SAT 92–100; BMI 23.0
--- NOTE | 2024-01-16 | PATH_ITS ---
[facility] Accession Number: [id number] No. of containers..01 Tissue . 01 Material submitted: . lung - RIGHT POSTERIOR UPPER LUNG LOBE . 01 Diagnosis: RIGHT LUNG, POSTERIOR UPPER LOBE MASS, NEEDLE CORE BIOPSY: Squamous cell carcinoma, moderately differentiated. MRV 01/19/2024 1417 Local . 01 Comment: Molecular studies for EGFR are pending, and results will be issued in an addendum. . As part of routine vendor quality supervisor, this case was reviewed by Dr. Acuña, who agrees with the diagnosis of squamous cell carcinoma. The finding of squamous cell carcinoma was discussed between the Dr. Norris and Dr. Warner on 01/19/2024 at 2:10 p.m. . 01 Electronically signed: . Cisco Warner MD, PhD, Pathologist NPI- [id number] . 01 Gross description: . Received in formalin with two patient identifiers and no site on jar, are multiple luong to brown, friable soft tissue fragments aggregating to 0.5 x 0.5 x 0.1 cm. Filtered and submitted entirely in A1. ([id number]) /MRV 01/17/2024 1802 Local . 01 Microscopic: . The malignant cells are diffusely positive for p40 immunoreactivity, consistent with squamous cell carcinoma. A control stain shows appropriate reactivity. . * This test was developed and its performance characteristics determined by [employer]. It has not been cleared or approved by the U.S. Food and Drug Administration. The FDA has determined that such clearance or approval is not necessary. This test is used for clinical purposes. It should not be regarded as investigational or for research. . 01 Pathologist provided ICD-10: C34.11 . 01 CPT . 556118, K19133 Specimen Comment: A courtesy copy of this report has been sent to [facility] Pathology Performed at: [address] [address], [place], [place] [id number] MD Mars Henning MD Phone: [phone]
--- NOTE | 2024-01-16 06:35 | DI.CT.S_ITS ---
PROCEDURE: CT BIOPSY LUNG RT Sedation analgesia for 30 minutes. INDICATIONS: lung nodule TECHNIQUE: The indications, alternatives, benefits, risks, and possible complications of the procedure were communicated to the patient. Informed written consent from the patient was obtained and placed in the chart. Continuous EKG and hemodynamic monitoring was started by trained personnel. The patient was brought to the CT suite and aged or disabled carer spiral CT imaging was performed with localization grid. The appropriate site for percutaneous access to the biopsy target was marked, was prepped and draped sterilely, and was infused with local anaesthesia. Under CT guidance, a core biopsy trocar and needle set was advanced to the biopsy target, and specimen(s) were obtained. The trocar and needle were then removed, and the patient was sent for post-procedure monitoring. COMPARISON: [facility], CT, CT LUNG LOW DOSE SCREENING, 12/11/2023, 10:38. FINDINGS: Biopsy site: Right upper lobe Needle: 20 gauge biopsy needle with introducer trocar. Number of passes: For Medications: 1% lidocaine for local anaesthesia. IV Fentanyl and Versed for conscious sedation for 30 minutes (see nursing record). Complications: None. IMPRESSION: Successful CT-guided biopsy of right upper lobe lesion . Dictated by: Kiley Meléndez M.D. on 01/16/2024 at 12:30 Approved by: Kiley Meléndez M.D. on 01/16/2024 at 12:33
--- NOTE | 2024-01-16 08:00 | DI.RAD.S_ITS ---
PROCEDURE: XR CHEST 1V INDICATIONS: lung biopsy TECHNIQUE: One view of the chest was acquired. COMPARISON: [facility], CT, CT LUNG LOW DOSE SCREENING, 12/11/2023, 10:38. [facility], CR, XR CHEST 1V, 05/19/2023, 13:00. FINDINGS: Surgical changes and devices: None. Lungs and pleura: Small right apical pneumothorax. Opacity in the right lung apex, presumably hemorrhage. Mediastinum: Mediastinal contours appear normal. Heart size is normal. Midline period Bones and chest wall: No suspicious bony lesions. Overlying soft tissues appear unremarkable. IMPRESSION: Small right apical pneumothorax, status post biopsy. Findings discussed with ordering provider at 11:01 a.m. On 01/16/2024. Dictated by: Jaiden Prado M.D. on 01/16/2024 at 10:59 Approved by: Jaiden Prado M.D. on 01/16/2024 at 11:01
[2024-01-16 08:21] LABS: INR 0.9 (0.9-1.3); Prothrombin Time 10.3 SECONDS (9.4-12.5)
[2024-01-16 08:32] LABS: Platelet Count 226 X10^3/uL (150-400)
[2024-01-16] MEDS: fentaNYL 100 MCG/2 ML INJ IV (10:03)
--- NOTE | 2024-01-16 11:35 | DI.RAD.S_ITS ---
PROCEDURE: XR CHEST 1V INDICATIONS: POST BX, PNEUMOTHORAX STATUS TECHNIQUE: One view of the chest was acquired. COMPARISON: [facility], CR, XR CHEST 1V, 01/16/2024, 10:30. FINDINGS: Surgical changes and devices: None. Lungs and pleura: There has been interval increase in size of right pneumothorax now measuring 6 cm compared to 3.2 cm. No midline shift. Patchy opacity is present at area of biopsy consistent with area of hemorrhage/mass. Mediastinum: Mediastinal contours appear normal. Heart size is normal. Bones and chest wall: No suspicious bony lesions. Overlying soft tissues appear unremarkable. IMPRESSION: Interval increase in size of right pneumothorax. Dictated by: Kiley Meléndez M.D. on 01/16/2024 at 12:16 Approved by: Kiley Meléndez M.D. on 01/16/2024 at 12:18
--- NOTE | 2024-01-16 12:37 | SUR.PHASEII ---
Radiologist to bedside to speak with patient. Patient informed of increase in pneumothorax. VSS, no ectopy noted on monitor. Denies pain or SOB. Instructed patient to call if chest pain or SOB. V/U. Chest tube cart at bedside with ambubag.
--- NOTE | 2024-01-16 13:35 | DI.RAD.S_ITS ---
PROCEDURE: XR CHEST 1V INDICATIONS: 3 HR POST BX PNEUMOTHORAX TECHNIQUE: One view of the chest was acquired. COMPARISON: [facility], CR, XR CHEST 1V, 01/16/2024, 11:34. FINDINGS: Surgical changes and devices: None. Lungs and pleura: Stable 6 mm right pneumothorax. Mediastinum: Mediastinal contours appear normal. Heart size is normal. Bones and chest wall: No suspicious bony lesions. Overlying soft tissues appear unremarkable. IMPRESSION: Stable 6 mm right pneumothorax. Dictated by: Kiley Meléndez M.D. on 01/16/2024 at 13:58 Approved by: Kiley Meléndez M.D. on 01/16/2024 at 13:58
--- NOTE | 2024-01-16 15:22 | PM.HP.1 ---
History of Present Illness History of Present Illness Chief complaint: LUNG NODULE Narrative: Patient is a 63-year-old patient with a history of COPD who underwent a lung biopsy of a lung nodule today. This was complicated by a small apical pneumothorax detected on chest x-ray after her procedure. The radiologist requested an observational admission to monitor the pneumothorax, and treatment with 2 L of oxygen. The patient has a long history of smoking in his now smoking about a pack of cigarettes a day. She was cut down from 2 packs of cigarettes. She denies new dyspnea at rest but was somewhat short of breath with moving to the bathroom after arrival to the floor. She was a small amount of pleuritic pain in the posterior aspect of her right thorax. No hemoptysis. Otherwise she has been doing well recently, no recent URI, or difficulty going to the bathroom. She denies any chest pains. In reviewing recent documentation from Pulmonary she was a history of severe COPD and underwent a low-dose CT of the chest which revealed a 1.7 cm right upper lobe nodule. She also underwent a PET scan on December 27 at [facility], this revealed the nodule to be hypermetabolic but there was no other evidence of disease or metastases. She was a chronic history of rheumatoid arthritis and chronic kidney disease as well as chronic respiratory failure. I spoke with Dr. Frankel, and we will admit and treat her while she was in the hospital. REPLACED BY [facility] Medical History Chronic respiratory failure Chronic renal failure, stage 3a Rheumatoid arthritis Peripheral neuropathy Dysphagia (2017) Bilateral tinnitus (2018) Foraminal stenosis of lumbar region Osteoarthritis of carpometacarpal joint of right thumb Chronic pain syndrome Gastritis Chronic obstructive pulmonary disease (07/07/17) Chronic back pain (07/03/14) Female hypogonadism syndrome (11/18/13) Recurrent major depressive disorder, in partial remission (11/18/13) Anxiety (11/18/13) Carpal tunnel syndrome (01/08/11) Gastroesophageal reflux disease without esophagitis (01/08/11) Surgical History Status post vaginal hysterectomy Family History Father Heart disease Mother Heart disease Brother No problems noted. Brother MVA (motor vehicle accident) Social History household members: significant other Smoking Status: Current every day smoker alcohol intake: current Meds Home Medications and Allergies Home Medications Medication Instructions Recorded Confirmed Type citalopram 40 mg tablet 40 mg PO DAILY #90 tabs 05/10/23 01/16/24 Rx albuterol sulfate 2.5 mg/3 mL 2.5 mg (3 mL) inhalation QID PRN 05/25/23 01/16/24 Rx (0.083 %) solution for nebulization shortness of breath or wheezing #180 mL gabapentin 600 mg tablet 600 mg PO BID #180 tabs 09/01/23 01/16/24 Rx albuterol sulfate 90 mcg/actuation 2 puff inhalation Q4-6H PRN 11/14/23 01/16/24 Rx aerosol inhaler shortness of breath or wheezing #8.5 grams clonazepam 1 mg tablet 1 mg PO BID #60 tabs 11/14/23 01/16/24 Rx budesonide-formoterol HFA 160 2 puff inhalation BID #10.2 grams 11/22/23 01/16/24 Rx mcg-4.5 mcg/actuation aerosol inhaler (Symbicort) tiotropium bromide 18 mcg capsule 1 cap inhalation DAILY #30 11/22/23 01/16/24 Rx with inhalation device (Spiriva inhalations with HandiHaler) hydrocodone 5 mg-acetaminophen 325 1 - 2 tab PO Q4-6H PRN pain #30 01/11/24 01/16/24 Rx mg tablet tabs azathioprine 50 mg tablet 100 mg PO DAILY 01/16/24 01/16/24 History prednisone 20 mg tablet 10 mg PO DAILY 01/16/24 01/16/24 History tiotropium bromide 18 mcg capsule 1 cap inhalation DAILY 01/16/24 01/16/24 History with inhalation device Allergies Allergy/AdvReac Type Severity Reaction Status Date / Time Sulfa (Sulfonamide AdvReac Intermediate ITCHING Verified 01/16/24 07:46 Antibiotics) Review of Systems Review of Systems Narrative: All else reviewed and otherwise unremarkable except as noted in the history and physical. Exam Vital Signs (past 8 hours): - 01/16/24 07:26 01/16/24 09:31 01/16/24 10:03 Temperature 97.4 F L Pulse Rate 54 L 55 L 57 L Respiratory Rate 16 16 16 Blood Pressure 125/74 131/63 151/75 H Pulse Oximetry 93 99 100 Oxygen Delivery Method Room Air Oxygen Flow Rate 3 3 01/16/24 10:08 01/16/24 10:13 01/16/24 10:18 Temperature Pulse Rate 62 610 H 66 Respiratory Rate 14 12 12 Blood Pressure 157/73 H 159/86 H 159/87 H Pulse Oximetry 100 100 100 Oxygen Delivery Method Oxygen Flow Rate 3 3 3 01/16/24 10:23 01/16/24 10:28 01/16/24 10:47 Temperature 98.1 F Pulse Rate 65 60 61 Respiratory Rate 14 14 21 Blood Pressure 166/94 H 166/94 H 128/71 Pulse Oximetry 100 100 93 Oxygen Delivery Method Room Air Oxygen Flow Rate 3 3 01/16/24 11:44 01/16/24 12:37 01/16/24 15:14 Temperature 96.8 F L Pulse Rate 54 L 50 L 61 Respiratory Rate 16 26 H 16 Blood Pressure 109/64 103/68 109/58 L Pulse Oximetry 93 94 94 Oxygen Delivery Method Room Air Room Air Oxygen Flow Rate 0 Oxygen Delivery Method Room Air Oxygen Flow Rate 0 Narrative Exam Narrative: NAD, alert and oriented, fluent speech, calm. Flat affect. Normocephalic skull, EOMI, anicteric sclera, symmetric pupils. Oropharynx unremarkable, no droop. Neck supple, midline trachea, no adenopathy. Lungs clear, normal rate and effort. She does have globally diminished breath sounds throughout. Heart regular, no murmur gallop or rub. Abdomen is soft, non distended and non tender. Extremities are free of edema. Skin is free of rash or lesions. Joints are not swollen or deformed. Judgment appears to be normal. Objective Imaging Chest x-ray: Radiologist's impression: Stable 6 mm right pneumothorax. Labs 01/16/24 07:30 Labs: Laboratory Results - last 24 hr 01/16/24 01/16/24 07:30 07:45 Plt Count 226 PT 10.3 INR 0.9 Assessment & Plan Assessment & Plan narrative: 1. Post lung biopsy pneumothorax, right apical 6 cm. Present on admission and active. 2. Right upper lobe lung mass, present on admission and active. 3. Severe COPD, present on admission and stable. 4. Tobacco dependence, present on admission and active. 5. Chronic kidney disease stage 3, present on admission and stable. Plan: -O2 2 L, surveillance chest x-ray in the morning to monitor for resolution of pneumothorax. -telemetry -continuous oximetry -she declines a Nicoderm patch. Full resuscitation. Her is with her, proxy decision maker. Observation status, anticipate a 1 midnight stay in the hospital. Time-Based Coding :: 30 min spent with patient and on the chart (including review of chart, obtaining history, exam, reviewing outside data, placing orders, documenting exam and treatment plan, and counseling patient) on 01/15. Quality MIPS - Admit I confirm the patient?s Advance Care Plan is present, Code status is documented, Surrogate decision maker is in patient?s record [If Yes, STOP here]: Yes MIPS - Meds 'Current medications' to include all prescriptions, [id number] products, herbals, cannabis/cannabidiol products, and vitamin/mineral/dietary (nutritional) supplements. I have utilized all available resources to obtain, update, or review the patient?s current medications. [If Yes, STOP here]: Yes
[2024-01-16] MEDS: HEPARIN 5,000 UNIT/ML VIAL 5000 UNIT SUBCUT ×2 (16:12→21:41)
[2024-01-16] MEDS: ACETAMINOPHEN 325 MG TABLET 650 MG PO (17:57)
--- NOTE | 2024-01-16 18:00 | DI.RAD.S_ITS ---
PROCEDURE: XR CHEST 1V INDICATIONS: POST BX TECHNIQUE: One view of the chest was acquired. COMPARISON: [facility], CR, XR CHEST 1V, 01/16/2024, 13:37. [facility], CR, XR CHEST 1V, 01/16/2024, 11:34. FINDINGS: Surgical changes and devices: None. Lungs and pleura: Similar size of the small right-sided pneumothorax, without evidence of tension. Decreased opacity in the right lung apex. Mediastinum: Mediastinal contours appear normal. Heart size is normal. Bones and chest wall: No suspicious bony lesions. Overlying soft tissues appear unremarkable. IMPRESSION: Similar right-sided pneumothorax, without tension. Decreased opacity in the right lung apex. Dictated by: Jaiden Prado M.D. on 01/16/2024 at 18:31 Approved by: Jaiden Prado M.D. on 01/16/2024 at 18:32
[2024-01-17] VITALS: BP 130/70; PULSE 74; RESP 17; TEMP 37; O2SAT 96
[2024-01-17 05:19] LABS: Add Manual Diff / Slide Review NO; Basophils Absolute Auto 200 /uL (0-100); Basophils Percent Auto 2.1 % (0-2); Eosinophils Absolute Auto 100 /uL (0-450); Eosinophils Percent Auto 1.3 % (2-4); Hematocrit 39.6 % (36-46); Hemoglobin 13.2 g/dL (12.0-16.0); Lymphocytes Absolute Auto 2500 /uL (1100-4500); Lymphocytes Percent Auto 32.3 % (25-40); Mean Corpuscular HGB Conc 33.2 % (30-36); Mean Corpuscular Volume 96.3 fL (80-100); Monocytes Absolute Auto 500 /uL (0-900); Neutrophils Absolute Auto 4400 /uL (1500-7000); Neutrophils Percent Auto 57.3 % (50-75); Platelet Count 220 X10^3/uL (150-400); Red Blood Cell Count 4.11 X10^6/uL (4.0-5.2); Red Cell Distribution Width 15.8 % (11.6-14.8); White Blood Cell Count 7.6 X10^3/uL (4.5-11.0)
[2024-01-17 05:31] LABS: BUN Creatinine Ratio 21.1 (6-22); Blood Urea Nitrogen 19 mg/dL (7-17); Calcium 8.6 mg/dL (8.4-10.2); Carbon Dioxide 29 mmol/L (22-32); Chloride 110 mmol/L (98-107); Estimated Glomerular Filt Rate > 60 mL/min (>60); Glucose 99 mg/dL (80-110); HEMOLYSIS < 15 (0-50); Potassium 4.1 mmol/L (3.4-5.1); Sodium 141 mmol/L (137-145)
[2024-01-17 05:52] VITALS: BP 136/82; PULSE 88; RESP 17; TEMP 36.4; O2SAT 96
--- NOTE | 2024-01-17 07:30 | DI.RAD.S_ITS ---
PROCEDURE: XR CHEST 1V INDICATIONS: pneumothorax TECHNIQUE: One view of the chest was acquired. COMPARISON: [facility], CR, XR CHEST 1V, 01/16/2024, 23:59. FINDINGS: Surgical changes and devices: None. Lungs and pleura: Right apical pneumothorax now measures 3.5 cm to the thoracic apex, previously 4.5 cm. Right upper pole density again noted stable. Left lung and pleural space clear Mediastinum: Mediastinal contours appear normal. Heart size is normal. Bones and chest wall: No suspicious bony lesions. Overlying soft tissues appear unremarkable. IMPRESSION: Improving right apical pneumothorax Approved by: Gordy Townsend M.D. on 01/17/2024 at 9:11
[2024-01-17 07:39] VITALS: BP 146/70; PULSE 51; RESP 13; TEMP 36.2; O2SAT 95
--- NOTE | 2024-01-17 07:55 | P.PN_ITS ---
Subjective Subjective Interval history: S: Minimal pleuritic pain, no dyspnea. She wants to go home. CXR this AM: Persistent right apical pneumothorax. Case discussed with Dr. Meléndez of Radiology and Dr. Bejarano of surgery. Exam Vital Signs (past 8 hours): - 01/17/24 00:00 01/17/24 05:52 01/17/24 07:39 Temperature 98.6 F 97.6 F 97.1 F L Pulse Rate 74 88 51 L Respiratory Rate 17 17 13 Blood Pressure 130/70 136/82 146/70 H Pulse Oximetry 96 96 95 Oxygen Flow Rate 0 0 Oxygen Delivery Method Room Air Oxygen Flow Rate 0 Narrative Exam Narrative: NAD, alert and oriented. Fluent speech. Lungs are clear, normal rate and effort. Heart is regular, no murmur gallop or rub. Abdomen is soft, non distended. Extremities are free of edema. Objective Imaging Chest x-ray: My impression: Persistent apical pneumothorax, right. Labs 01/17/24 05:06 01/17/24 05:06 Labs: Laboratory Results - last 24 hr 01/16/24 01/16/24 01/17/24 07:30 07:45 05:06 WBC 7.6 RBC 4.11 Hgb 13.2 Hct 39.6 MCV 96.3 MCH 32.0 MCHC 33.2 RDW 15.8 H Plt Count 226 220 Neut % (Auto) 57.3 Lymph % (Auto) 32.3 [place] % (Auto) 7.0 Eos % (Auto) 1.3 L Baso % (Auto) 2.1 H Neut # (Auto) 4400 Lymph # (Auto) 2500 [place] # (Auto) 500 Eos # (Auto) 100 Baso # (Auto) 200 H PT 10.3 INR 0.9 Sodium 141 Potassium 4.1 Chloride 110 H Carbon Dioxide 29 BUN 19 H Creatinine 0.90 Estimated GFR > 60 BUN/Creatinine Ratio 21.1 Glucose 99 Calcium 8.6 PFSH Medical History Chronic respiratory failure Chronic renal failure, stage 3a Rheumatoid arthritis Peripheral neuropathy Dysphagia (2018) Bilateral tinnitus (2019) Foraminal stenosis of lumbar region Osteoarthritis of carpometacarpal joint of right thumb Chronic pain syndrome Gastritis Chronic obstructive pulmonary disease (07/07/17) Chronic back pain (07/03/14) Female hypogonadism syndrome (11/18/13) Recurrent major depressive disorder, in partial remission (11/18/13) Anxiety (11/18/13) Carpal tunnel syndrome (01/08/11) Gastroesophageal reflux disease without esophagitis (01/08/11) Surgical History Status post vaginal hysterectomy Family History Father Heart disease Mother Heart disease Brother No problems noted. Brother MVA (motor vehicle accident) Social History household members: significant other Smoking Status: Current every day smoker alcohol intake: current Assessment & Plan Assessment & Plan narrative: 1. Post lung biopsy pneumothorax, right apical 6 cm. Present on admission and active. 2. Right upper lobe lung mass, present on admission and active. 3. Severe COPD, present on admission and stable. 4. Tobacco dependence, present on admission and active. 5. Chronic kidney disease stage 3, present on admission and stable. Plan: -CT chest. - persistent pneumothorax on chest x-ray from a.m. 731. Notify General surgery on-call at 7:50 a.m.. Full resuscitation. Her is with her, proxy decision maker. Observation status, anticipate a 1 midnight stay in the hospital. Time-Based Coding :: 25 min spent with patient and on the chart (including review of chart, obtaining history, exam, reviewing outside data, placing orders, documenting exam and treatment plan, and counseling patient) on 01/16.
--- NOTE | 2024-01-17 10:00 | DI.CT.S_ITS ---
PROCEDURE: CT CHEST WO CON INDICATIONS: right PTX TECHNIQUE: Noncontrast 5 mm thick sections acquired from the pulmonary apices to the posterior costophrenic angles. 1 mm lung window, 5 mm thick coronal and sagittal and 7 mm axial MIP reformats were then acquired. For radiation dose reduction, the following was used: automated exposure control, adjustment of mA and/or kV according to patient size. COMPARISON: [facility], CT, CT BIOPSY LUNG RT, 01/16/2024, 9:25. [facility], CR, XR CHEST 1V, 01/17/2024, 7:30. [facility], CT, CT LUNG LOW DOSE SCREENING, 12/11/2023, 10:38. FINDINGS: Image quality: Diagnostic. Lower Neck: No enlarged lymph nodes. Thyroid: No thyroid nodules which require sonographic follow up, per consensus guidelines. Axillae: No enlarged lymph nodes. Chest Wall: Unremarkable. Bones: Unremarkable. Lungs and Pleura: Small right pneumothorax again noted, similar to the concurrent chest x-ray. Advanced bilateral bullous emphysema present with apical predominance. Spiculated mass lesion in the right lung apex now contains a small central cavity. Surrounding postprocedural hemorrhage has significantly improved Heart: Heart size is normal. No pericardial effusion. Thoracic Vessels: The aorta and pulmonary arteries demonstrate normal size. Mediastinum and Priscila: No enlarged lymph nodes. Esophagus: No wall thickening. No hiatal hernia. Upper Abdomen: Visualized upper abdomen solid organs and bowel loops appear normal. IMPRESSION: Small right-sided pneumothorax and advanced bullous emphysema status post percutaneous biopsy Right upper lobe spiculated mass lesion now contains small central cavity. Surrounding postprocedural hemorrhage has significantly improved Approved by: Gordy Townsend M.D. on 01/17/2024 at 9:33
[2024-01-17] MEDS: predniSONE 20 MG TABLET 10 MG PO (10:09)
[2024-01-17] MEDS: GABAPENTIN 600 MG TABLET PO (10:09)
[2024-01-17] MEDS: HEPARIN 5,000 UNIT/ML VIAL 5000 UNIT SUBCUT (10:10)
[2024-01-17] MEDS: azaTHIOprine 50 MG TABLET 100 MG PO (10:11)
[2024-01-17] MEDS: clonazePAM 0.5 MG TABLET 1 MG PO (10:28)
[2024-01-17 11:00] VITALS: BP 130/72; PULSE 48; RESP 16; TEMP 36.1; O2SAT 92
--- NOTE | 2024-01-17 11:59 | PM.DS.1 ---
History of Present Illness History of Present Illness Chief complaint: LUNG NODULE Narrative: Patient is a 63-year-old patient with a history of COPD who underwent a lung biopsy of a lung nodule today. This was complicated by a small apical pneumothorax detected on chest x-ray after her procedure. The radiologist requested an observational admission to monitor the pneumothorax, and treatment with 2 L of oxygen. The patient has a long history of smoking in his now smoking about a pack of cigarettes a day. She was cut down from 2 packs of cigarettes. She denies new dyspnea at rest but was somewhat short of breath with moving to the bathroom after arrival to the floor. She was a small amount of pleuritic pain in the posterior aspect of her right thorax. No hemoptysis. Otherwise she has been doing well recently, no recent URI, or difficulty going to the bathroom. She denies any chest pains. In reviewing recent documentation from Pulmonary she was a history of severe COPD and underwent a low-dose CT of the chest which revealed a 1.7 cm right upper lobe nodule. She also underwent a PET scan on December 27 at [facility], this revealed the nodule to be hypermetabolic but there was no other evidence of disease or metastases. She was a chronic history of rheumatoid arthritis and chronic kidney disease as well as chronic respiratory failure. I spoke with Dr. Frankel, and we will admit and treat her while she was in the hospital. Discharge Providers Provider Date of admission: 01/16/24 06:36 Discharge Date: 01/17/24 Primary care physician: Kamaljit Frankel MD Consults: General surgery (Tiff). Discharge provider: Christopher Munoz MD Summary Hospital Course Discharge Diagnosis: 1. Post lung biopsy pneumothorax, right apical 6 cm. Present on admission and active. 2. Right upper lobe lung mass, present on admission and active. 3. Severe COPD, present on admission and stable. 4. Tobacco dependence, present on admission and active. 5. Chronic kidney disease stage 3, present on admission and stable. Hospital Course: She was admitted with a right apical pneumothorax after a CT biopsy of a right upper lobe nodule. The pneumothorax had minor improvement overnight. A repeat CT scan was obtained and she was discuss with Radiology as well as General surgery. She felt fine and had normal vital signs. She was not short of breath and had no pleuritic chest pain. General surgery recommended discharge home with a follow up chest x-ray on January 17 which they have arranged for. The patient is in agreement with the plan. Status at Discharge Cognitive/behavioral status at discharge: oriented Functional status at discharge: independent ambulation Overall status at discharge: patient is back to baseline Time Spent with Patient Time spent: Greater than 30 minutes Exam Vital Signs (past 8 hours): - 01/17/24 05:52 01/17/24 07:39 01/17/24 11:00 Temperature 97.6 F 97.1 F L 96.9 F L Pulse Rate 88 51 L 48 L Respiratory Rate 17 13 16 Blood Pressure 136/82 146/70 H 130/72 Pulse Oximetry 96 95 92 Oxygen Flow Rate 0 Oxygen Delivery Method Room Air Oxygen Flow Rate 0 Narrative Exam Narrative: NAD, alert and oriented. Fluent speech. Lungs are clear, normal rate and effort. Heart is regular, no murmur gallop or rub. Abdomen is soft, non distended. Extremities are free of edema. Objective Imaging Multiple studies:: Radiologist's impression: Chest x-ray day of admission revealed a right apical pneumothorax, small. Repeat chest x-ray in the morning of January [address] of the chest on January 16 revealed a small right apical pneumothorax. Labs 01/17/24 05:06 01/17/24 05:06 Labs: Laboratory Results - last 24 hr 01/17/24 05:06 WBC 7.6 RBC 4.11 Hgb 13.2 Hct 39.6 MCV 96.3 MCH 32.0 MCHC 33.2 RDW 15.8 H Plt Count 220 Neut % (Auto) 57.3 Lymph % (Auto) 32.3 [place] % (Auto) 7.0 Eos % (Auto) 1.3 L Baso % (Auto) 2.1 H Neut # (Auto) 4400 Lymph # (Auto) 2500 [place] # (Auto) 500 Eos # (Auto) 100 Baso # (Auto) 200 H Sodium 141 Potassium 4.1 Chloride 110 H Carbon Dioxide 29 BUN 19 H Creatinine 0.90 Estimated GFR > 60 BUN/Creatinine Ratio 21.1 Glucose 99 Calcium 8.6 [facility] Medical History Chronic respiratory failure Chronic renal failure, stage 3a Rheumatoid arthritis Peripheral neuropathy Dysphagia (2018) Bilateral tinnitus (2019) Foraminal stenosis of lumbar region Osteoarthritis of carpometacarpal joint of right thumb Chronic pain syndrome Gastritis Chronic obstructive pulmonary disease (07/07/17) Chronic back pain (07/03/14) Female hypogonadism syndrome (11/18/13) Recurrent major depressive disorder, in partial remission (11/18/13) Anxiety (11/18/13) Carpal tunnel syndrome (01/08/11) Gastroesophageal reflux disease without esophagitis (01/08/11) Surgical History Status post vaginal hysterectomy Family History Father Heart disease Mother Heart disease Brother No problems noted. Brother MVA (motor vehicle accident) Social History household members: significant other Smoking Status: Current every day smoker alcohol intake: current Discharge Assessment & Plan Assessment and Plan Assessment: 1. Post lung biopsy pneumothorax, right apical 6 cm. Present on admission and active. 2. Right upper lobe lung mass, present on admission and active. 3. Severe COPD, present on admission and stable. 4. Tobacco dependence, present on admission and active. 5. Chronic kidney disease stage 3, present on admission and stable. Plan of Treatment: Discharge home, no change to medications. Follow up chest x-ray with reviewed by Dr. Bejarano on January 17 or emergency department for acute dyspnea or severe chest pain. Discharge Plan Discharge Plan Patient Disposition: Home Provider Discharge Comment: Stable for discharge home. Chest x-ray is ordered for tomorrow, Dr. Bejarano we will follow. Discharge orders & Medications Prescriptions: Continued citalopram 40 mg tablet 40 mg PO DAILY Qty: 90 3RF gabapentin 600 mg tablet 600 mg PO BID Qty: 180 1RF albuterol sulfate 90 mcg/actuation HFA aerosol inhaler 2 puff inhalation Q4-6H PRN (Reason: shortness of breath or wheezing) Qty: 8.5 5RF clonazepam 1 mg tablet 1 mg PO BID Qty: 60 2RF budesonide-formoterol [Symbicort] 160-4.5 mcg/actuation HFA aerosol inhaler 2 puff inhalation BID Qty: 10.2 11RF Rx Instructions: Rinse mouth with water, gargle and spit after each use tiotropium bromide [Spiriva with HandiHaler] 18 mcg capsule, w/inhalation device 1 cap inhalation DAILY Qty: 30 11RF Rx Instructions: puncture 1 cap using device; one dose = 2 inhalations hydrocodone-acetaminophen 5-325 mg tablet 1 - 2 tab PO Q4-6H MDD 4 tabs PRN (Reason: pain) Qty: 30 0RF albuterol sulfate 2.5 mg /3 mL (0.083 %) solution for nebulization 2.5 mg inhalation QID PRN (Reason: shortness of breath or wheezing) Qty: 180 3RF prednisone 20 mg tablet 10 mg PO DAILY Rx Instructions: 2 tabs daily for 5 days azathioprine 50 mg tablet 100 mg PO DAILY tiotropium bromide 18 mcg Capsule, W/Inhalation Device 1 cap INHALATION DAILY Rx Instructions: puncture 1 cap using device; one dose = 2 inhalations Follow up/Referrals: Kamaljit Frankel MD [Primary Care Provider] - Discharge Health Status Multidrug resistant organism: No MDRO Diet/Activity/Treatments Diet: Regular Activity: As tolerated. Visit Report/Discharge Packet Instructions: DI for Pneumothorax, DI for Needle Biopsy of the Lung and Pleura Stand Alone Forms: Patient Portal/API Discharge Data Primary Care Provider: Kamaljit Frankel Attending Provider: Jay Henning Admit Date/Time: 01/16/24 06:36
--- NOTE | 2024-01-17 12:00 | DI.RAD.S_ITS ---
PROCEDURE: XR CHEST 1V INDICATIONS: POST BX TECHNIQUE: One view of the chest was acquired. COMPARISON: [facility], CR, XR CHEST 1V, 01/16/2024, 18:01. FINDINGS: Surgical changes and devices: None. Lungs and pleura: Stable right apical pneumothorax and underlying focal mass lesion status post biopsy. Left lung and pleural space clear. Atherosclerotic vascular calcification noted in the aortic arch. Mediastinum: Mediastinal contours appear normal. Heart size is normal. Bones and chest wall: No suspicious bony lesions. Overlying soft tissues appear unremarkable. IMPRESSION: Stable right apical pneumothorax Approved by: Gordy Townsend M.D. on 01/17/2024 at 9:10
--- NOTE | 2024-01-17 12:09 | PC.NURSE ---
Day shift: Discharge instructions gone over with patient and patient's SO. All questions answered, patient stated understanding. PIV removed prior to discharge. Patient refused telemetry this AM, MD Munoz aware. All belongings with patient. ARIANNA Wyman escorted patient to exit.
--- NOTE | 2024-01-17 12:29 | CM.DANOTE ---
Brief DCP Assessment Note Pt is a 63yo F here following lung biopsy that was complicated by a pneumothorax. PCP Jostin Moon [facility] WATER REGISTRAR reviewed EMR. Per hospitalist, dc home today with OP f/u scheduled with Dr. Bejarano, pt eager to dc home. Pt left prior to being seen by this WATER REGISTRAR. P: dc home today with OP f/u with Dr. Bejarano scheduled. No identified barriers to safe dc home at this time. CM team will follow as needed SHADY Gonzalez Discharge Planning/Care Management Advanced directive, confirm from CLINIC Start: 01/16/24 14:44 Freq: Q24H Status: Discharge Protocol: Document 01/16/24 18:19 LW (Rec: 01/16/24 18:59 LW [id number]) Advance Directive, confirm on record Time 18:59 Person contacted pt Copy received No CM Discharge Assessment Start: 01/17/24 12:26 Freq: Status: Active Protocol: Document 01/17/24 12:26 SL (Rec: 01/17/24 12:29 [id number]) Discharge Planning Assessment Assigned Shake Out Worker SHADY Zhu DPOA/Assigned Designee Name Kwame, partner Contact Information [phone] Advance Directives? No Advance Directives on File No History Provided By Medical Record Prior Living Arrangements House Household Members significant other Independent with ADL's Yes Is patient alert and oriented? Yes Barriers to Discharge No Discharge Plan Home Referrals Initiated None needed Whiteboard Updated in Patient Room with No name and ext. # of Shake Out Worker Comment pt left prior to being seen by this WATER REGISTRAR Review Status In Process Please Provide Date Initial DC 01/17/24 Assessment Was Performed Next Review Type Continued Stay Review
== END 2024-01-17 12:11 | disposition home or self-care (01) ==
LOC: OR 07:56 → AC 14:14 → OR 01-17 11:23 → AC 01-17 11:23
PROVIDERS: Hospitalist; Admitting Provider Internal Medicine Critical Care Medicine; Family Provider Internal Medicine; PCP Internal Medicine; Referring Provider Internal Medicine Critical Care Medicine; Visit Provider Internal Medicine Critical Care Medicine
PROC: BB24ZZZ Computerized Tomography (CT Scan) of Bilateral Lungs (ICD-10-PCS; CPT 32408; principal; 2024-01-16 09:00)
DX: J95.811 Postprocedural pneumothorax (principal); R91.1 Solitary pulmonary nodule; J44.9 Chronic obstructive pulmonary disease, unspecified; N18.30 Chronic kidney disease, stage 3 unspecified; F17.210 Nicotine dependence, cigarettes, uncomplicated
CPT/HCPCS: 32408; 36415; 71045; 71250; 80048; 85025; 85049; 85610; 96372; 96374; G0378; J1644; J3010; J7500

== ENCOUNTER → 2024-01-19 11:14 | Outpatient (CLI) | payer OTHER, MEDICAID, SELFPAY ==
[2024-01-18 13:24] VITALS: PULSE 81; RESP 16; O2SAT 99; BMI 23.0
--- NOTE | 2024-01-19 11:15 | DI.RAD.S_ITS ---
PROCEDURE: XR CHEST 2V INDICATIONS: right pneumothorax TECHNIQUE: 2 views of the chest were acquired. COMPARISON: [facility], CR, XR CHEST 1V, 01/17/2024, 7:30. FINDINGS: Surgical changes and devices: None. Lungs and pleura: Lungs are clear. Redemonstration of a right apical pneumothorax, currently measuring 3.2 cm, compared to 3.5 cm . No new or normal pneumothorax. Mediastinum: Mediastinal contours are normal. Heart size is normal. Bones and chest wall: No suspicious bony abnormalities. Soft tissues appear unremarkable. IMPRESSION: Slight interval decrease of a right apical pneumothorax. Dictated by: Eddie Durham M.D. on 01/19/2024 at 16:57 Approved by: Eddie Durham M.D. on 01/19/2024 at 17:03
== END ==
PROVIDERS: Family Provider Internal Medicine; PCP Internal Medicine; Referring Provider Surgery; Visit Provider Surgery
DX: J93.9 Pneumothorax, unspecified (principal); R91.1 Solitary pulmonary nodule
CPT/HCPCS: 71046

== ENCOUNTER 2024-03-29 14:44 | Emergency (ER) | payer OTHER, MEDICAID, SELFPAY ==
[2024-01-18 13:24] VITALS: PULSE 81; RESP 16; O2SAT 99; BMI 23.0
[2024-03-29 14:48] VITALS: BP 146/71; PULSE 80; RESP 18; TEMP 37.2; O2SAT 96; BMI 23.0
--- NOTE | 2024-03-29 14:54 | DI.CT.S_ITS ---
PROCEDURE: CT HEAD/BRAIN WO CON INDICATIONS: head injury, c/o pain TECHNIQUE: Noncontrast 4.5 mm thick angled axial sections acquired from the foramen magnum to the vertex, with coronal and sagittal reformats. For radiation dose reduction, the following was used: automated exposure control, adjustment of mA and/or kV according to patient size. COMPARISON: [facility], CT, CT HEAD/BRAIN WO CON, 02/21/2021, 13:56. FINDINGS: Image quality: Diagnostic. CSF spaces: Basal cisterns are patent. No extra-axial fluid collections. Ventricles are normal in size and shape. Brain: No midline shift. No intracranial masses or hemorrhage. [place]-white matter interface is normal. Skull and face: Calvarium and visualized facial bones are intact, without suspicious lesions. Sinuses: Visualized sinuses and mastoids are clear. IMPRESSION: No acute intracranial pathology. Dictated by: Maverick Maldonado M.D. on 03/29/2024 at 15:48 Approved by: Maverick Maldonado M.D. on 03/29/2024 at 15:49
--- NOTE | 2024-03-29 14:54 | DI.CT.S_ITS ---
PROCEDURE: CT CERVICAL SPINE WO CON INDICATIONS: head injury, c/o pain TECHNIQUE: Noncontrast 3 mm thick sections acquired from the skull base to the T4 level. Sagittal and coronal reformats were then constructed. For radiation dose reduction, the following was used: automated exposure control, adjustment of mA and/or kV according to patient size. COMPARISON: [facility], CT, CT BIOPSY LUNG RT, 01/16/2024, 9:25. [facility], [place], PET NECK TO MID THIGH, 12/28/2023, 7:59. [facility], CT, CT HEAD/BRAIN WO CON, 03/29/2024, 14:59. (Additional prior imaging is not available for review from the archive at the time of this dictation.) FINDINGS: Image quality: This examination is somewhat limited by quantum mottle artifact. Bones: No fractures or dislocations. Visualized superior ribs are intact. Soft tissues: Prevertebral soft tissues are normal in thickness. No paravertebral hematomas. No apical pneumothoraces. Nodular opacity can be seen at the right lung apex. Underlying emphysematous changes are seen. IMPRESSION: No displaced fracture or traumatic subluxation. There is nodular opacity seen at the right lung apex. Please correlate with biopsy results. Dictated by: Mele Mercado M.D. on 03/29/2024 at 14:23 Approved by: Mele Mercado M.D. on 03/29/2024 at 14:26
--- NOTE | 2024-03-29 17:01 | ED.FALL ---
HPI - Fall <Mellisa Worley PA-C - Last Filed: 03/29/24 18:32> General Chief Complaint: Fall Stated Complaint: fell and hit back of her head Time Seen by Provider: 03/29/24 17:01 Source: patient Mode of arrival: Ambulatory History of Present Illness HPI Narrative: Pleasant 64-year-old female presents to the emergency room department after she fell off a retaining wall, stepped back lost her balance falling about 4 ft striking her head on cement, sustained a 2-1/2-3 inch laceration on the posterior aspect of her scalp, no loss of consciousness, complained of headache, scalp laceration, and cervical spine pain. Placed in a C-collar prior to her being seen here in [facility], no other further complaints. Patient denies loss of consciousness. Signs symptoms of concussion. Related Data Home Medications Medication Instructions Recorded Confirmed tiotropium bromide 18 mcg capsule 1 cap inhalation DAILY 01/16/24 03/21/24 with inhalation device azathioprine 50 mg tablet 50 mg PO DAILY 01/25/24 03/21/24 prednisone 5 mg tablet 5 mg PO DAILY 01/25/24 03/21/24 Previous Rx's Medication Instructions Recorded citalopram 40 mg tablet 40 mg PO DAILY #90 tabs 05/10/23 albuterol sulfate 2.5 mg/3 mL 2.5 mg (3 mL) inhalation QID PRN 05/25/23 (0.083 %) solution for nebulization shortness of breath or wheezing #180 mL budesonide-formoterol HFA 160 2 puff inhalation BID #10.2 grams 11/22/23 mcg-4.5 mcg/actuation aerosol inhaler (Symbicort) gabapentin 600 mg tablet 600 mg PO BID #180 tabs 02/29/24 clonazepam 1 mg tablet 1 mg PO BID #60 tabs 03/11/24 albuterol sulfate 90 mcg/actuation 2 puff inhalation Q4-6H PRN 03/25/24 aerosol inhaler shortness of breath or wheezing #8.5 grams hydrocodone 7.5 mg-acetaminophen 1 - 2 tab PO Q4-6H PRN pain #60 03/25/24 325 mg tablet tabs cyclobenzaprine 10 mg tablet 10 mg PO TID #15 tabs 03/29/24 Allergies Allergy/AdvReac Type Severity Reaction Status Date / Time Sulfa (Sulfonamide AdvReac Intermediate ITCHING Verified 03/29/24 14:48 Antibiotics) Review of Systems <Mellisa Worley PA-C - Last Filed: 03/29/24 18:32> Review of Systems Narrative: Negative except as above Musculoskeletal Comments: Neck pain, scalp pain, headache. Integumentary/Breasts Comments: 2-1/2-3 inch posterior scalp laceration from fall Patient History <Mellisa Worley PA-C - Last Filed: 03/29/24 18:32> Medical History Squamous cell lung cancer Chronic respiratory failure Chronic renal failure, stage 3a Rheumatoid arthritis Peripheral neuropathy Dysphagia (2017) Bilateral tinnitus (2018) Foraminal stenosis of lumbar region Osteoarthritis of carpometacarpal joint of right thumb Chronic pain syndrome Gastritis Chronic obstructive pulmonary disease (07/07/17) Chronic back pain (07/03/14) Female hypogonadism syndrome (11/18/13) Recurrent major depressive disorder, in partial remission (11/18/13) Anxiety (11/18/13) Carpal tunnel syndrome (01/08/11) Gastroesophageal reflux disease without esophagitis (01/08/11) Surgical History Status post vaginal hysterectomy Family History Father Heart disease Mother Heart disease Brother No problems noted. Brother MVA (motor vehicle accident) Social History household members: significant other Smoking Status: Current every day smoker alcohol intake: current Smoking Status: Current every day smoker tobacco type: cigarettes alcohol intake frequency: holidays/special occasions only Substance Use Type: does not use and prescription drug Exam <Mellisa Worley PA-C - Last Filed: 03/29/24 18:32> Initial Vital Signs Initial Vital Signs: Vital Signs Temperature 98.9 F 03/29/24 14:48 Pulse Rate 80 03/29/24 14:48 Respiratory Rate 18 03/29/24 14:48 Blood Pressure 146/71 H 03/29/24 14:48 Pulse Oximetry 96 10/11/24 14:48 Oxygen Delivery Method Room Air 03/29/24 14:48 Reviewed Const General: cooperative, healthy appearing, comfortable, well developed and in distress Nutritional Appearance: average body habitus and well nourished [facility] Head: contusion, hematoma, laceration (Posterior scalp laceration 2-1/2-3 inches) and scalp tenderness Eyes Pupils: PERRL EOM: EOM intact bilaterally Neck Neck: normal visual inspection, trachea midline, No anterior neck swelling, No lymphadenopathy and tender (Musculoskeletal myofascial tenderness) Back/Spine/Pelvis Cervical Spine: collar present (Placed in triage), cervical muscular tenderness, cervical spasm, cervical spinal tenderness and No step off deformity Skin Other: Two and half to 3 in scalp laceration posterior aspect Neuro General: patient alert, patient awake, patient oriented x3, oriented and gait normal Cranial Nerves: CN's II-XI intact bilaterally Cognition: normal cognition Speech: speech normal Gait: normal gait Extrem Other: Range of motion, strength, pulses, cap refill is preserved in the upper and lower extremities Psych Other: Appearance, mental status, speech, movement, mood, affect, thought process, thought content, judgment stable in all within normal limits <John Stone MD - Last Filed: 03/29/24 21:10> Initial Vital Signs Initial Vital Signs: Vital Signs Temperature 98.9 F 03/29/24 14:48 Pulse Rate 80 03/29/24 14:48 Respiratory Rate 18 03/29/24 14:48 Blood Pressure 146/71 H 03/29/24 14:48 Pulse Oximetry 96 03/29/24 14:48 Oxygen Delivery Method Room Air 03/29/24 14:48 Procedures <Mellisa Worley PA-C - Last Filed: 03/29/24 18:32> Laceration Repair Laceration 1: Time of procedure: 18:29 Site: scalp (Posterior scalp) Size (cm): 3.5 Description: flap Depth: involves muscle layer Local Anesthetic: lidocaine 1% Amount of anesthesia used (mL): 5 Skin layer closed with: steven Number of sutures: 12 Scores <KYRIE Davis Last Filed: 03/29/24 18:32> GCS Citation: 15 Course <Mellisa Worley PA-C - Last Filed: 03/29/24 18:32> Orders Ordered: ED Orders 03/29/24 14:54 CT cervical spine wo con Stat CT head/brain wo con Stat Vital Signs Vital signs: Vital Signs - 8 hr 03/29/24 14:48 03/29/24 17:31 Temperature 98.9 F Pulse Rate 80 77 Respiratory Rate 18 18 Blood Pressure 146/71 H 140/68 Pulse Oximetry 96 97 Oxygen Delivery Method Room Air Room Air Reviewed <John Stone MD - Last Filed: 03/29/24 21:10> Orders Ordered: ED Orders 03/29/24 14:54 CT cervical spine wo con Stat CT head/brain wo con Stat Vital Signs Vital signs: Vital Signs - 8 hr 03/29/24 14:48 03/29/24 17:31 Temperature 98.9 F Pulse Rate 80 77 Respiratory Rate 18 18 Blood Pressure 146/71 H 140/68 Pulse Oximetry 96 97 Oxygen Delivery Method Room Air Room Air MDM - Fall <Mellisa Worley PA-C - Last Filed: 03/29/24 18:32> Imaging Data CT scan - head: Radiologist's Impression: [place] [address] CT Scan Report Signed Patient: Jacquelyn Dotson MR#: [id number] : 1960 Acct:[id number] Age/Sex: 64 / F Date of Service: 03/29/24 Loc: ED Accession Number: [id number] Procedure: CT head/brain wo con Ordering Provider: John Stone MD PROCEDURE: CT HEAD/BRAIN WO CON INDICATIONS: head injury, c/o pain TECHNIQUE: Noncontrast 4.5 mm thick angled axial sections acquired from the foramen magnum to the vertex, with coronal and sagittal reformats. For radiation dose reduction, the following was used: automated exposure control, adjustment of mA and/or kV according to patient size. COMPARISON: [facility], CT, CT HEAD/BRAIN WO CON, 02/21/2021, 13:56. FINDINGS: Image quality: Diagnostic. CSF spaces: Basal cisterns are patent. No extra-axial fluid collections. Ventricles are normal in size and shape. Brain: No midline shift. No intracranial masses or hemorrhage. Overton-white matter interface is normal. Skull and face: Calvarium and visualized facial bones are intact, without suspicious lesions. Sinuses: Visualized sinuses and mastoids are clear. IMPRESSION: No acute intracranial pathology. Dictated by: Maverick Maldonado M.D. on 03/29/2024 at 15:48 Approved by: Maverick Maldonado M.D. on 03/29/2024 at 15:49 CT - cervical spine: Radiologist's Impression: [address] [address] [address] Scan Report Signed Patient: Jacquelyn Dotson MR#: [id number] : 1960 Acct:[id number] Age/Sex: 64 / F Date of Service: 03/29/24 Loc: ED Accession Number: [id number] Procedure: CT head/brain wo con Ordering Provider: John Stone MD PROCEDURE: CT HEAD/BRAIN WO CON INDICATIONS: head injury, c/o pain TECHNIQUE: Noncontrast 4.5 mm thick angled axial sections acquired from the foramen magnum to the vertex, with coronal and sagittal reformats. For radiation dose reduction, the following was used: automated exposure control, adjustment of mA and/or kV according to patient size. COMPARISON: [facility], CT, CT HEAD/BRAIN WO CON, 02/21/2021, 13:56. FINDINGS: Image quality: Diagnostic. CSF spaces: Basal cisterns are patent. No extra-axial fluid collections. Ventricles are normal in size and shape. Brain: No midline shift. No intracranial masses or hemorrhage. Overton-white matter interface is normal. Skull and face: Calvarium and visualized facial bones are intact, without suspicious lesions. Sinuses: Visualized sinuses and mastoids are clear. IMPRESSION: No acute intracranial pathology. Dictated by: Maverick Maldonado M.D. on 03/29/2024 at 15:48 Approved by: Maverick Maldonado M.D. on 03/29/2024 at 15:49 [facility] Narrative Medical decision making narrative: Very pleasant 64-year-old female presents to the emergency room department today with complaints of fall, patient was on a retaining wall, attempting to turn off a water main, unfortunately she stepped back slipped and, landing back on some. She fell about 4 ft no loss of consciousness, sustained a laceration to the posterior aspect of her scalp. Presented to the emergency department with scalp laceration, fall, signs and symptoms of concussion, cervical spine tenderness and pain. Placed in a C-collar. C-spine was negative for any fracture or subluxation Head CT was negative for any acute findings Patient was brought over to [facility] Patient examined C-collar removed Patient has musculoskeletal cervical spine tenderness and spasm 3.5 cm laceration flap like to posterior aspect of her scalp Area is numbed up anesthesia is achieved [place] laceration repair as above Patient tolerated procedure well, supportive therapy education, ED precautions Prescription sent to the pharmacy Differential diagnosis; fall, scalp laceration, concussion, cervical musculoskeletal myofascial pain and spasm. Discharge Plan Departure Patient Disposition: Home Clinical Impression: Fall Qualifiers: Encounter type: initial encounter Qualified Code(s): W19.XXXA - Unspecified fall, initial encounter Laceration of scalp Qualifiers: Encounter type: initial encounter Qualified Code(s): S01.01XA - Laceration without foreign body of scalp, initial encounter Concussion Qualifiers: Encounter type: initial encounter Loss of consciousness presence/duration: without LOC Qualified Code(s): S06.0X0A - Concussion without loss of consciousness, initial encounter Cervical strain Qualifiers: Encounter type: initial encounter Qualified Code(s): S16.1XXA - Strain of muscle, fascia and tendon at neck level, initial encounter Activity Restrictions/Additional Instructions: You can shower normally Do not rub the hair dry pat the area dry Steven need to come out in 7-10 days, they can come out in the walk-in clinic, urgent care, primary care doctor's office, emergency room department Tylenol or your hydrocodone for headache and pain, placed a towel on her head and ice to the head. You are going to have signs and symptoms of a concussion, headache, dizziness, feeling unsteady these are normal. Your CT scan of your head was negative CT scan of her neck was negative You have myofascial cervical strain associated with the fall i.e. whiplash A muscle relaxer has been sent to your pharmacy no drinking, driving, do not combine it with your clonazepam or your hydrocodone it causes increased sedation I do not want to hurt herself please note drinking, driving or operating power equipment. Please follow up with your primary care doctor, return to the emergency department as needed. Prescriptions: New cyclobenzaprine 10 mg tablet 10 mg PO TID Qty: 15 0RF No Action citalopram 40 mg tablet 40 mg PO DAILY Qty: 90 3RF budesonide-formoterol [Symbicort] 160-4.5 mcg/actuation HFA aerosol inhaler 2 puff inhalation BID Qty: 10.2 11RF Rx Instructions: Rinse mouth with water, gargle and spit after each use gabapentin 600 mg tablet 600 mg PO BID Qty: 180 1RF clonazepam 1 mg tablet 1 mg PO BID Qty: 60 3RF albuterol sulfate 90 mcg/actuation HFA aerosol inhaler 2 puff inhalation Q4-6H PRN (Reason: shortness of breath or wheezing) Qty: 8.5 5RF hydrocodone-acetaminophen 7.5-325 mg tablet 1 - 2 tab PO Q4-6H MDD 3 tabs PRN (Reason: pain) Qty: 60 0RF Rx Instructions: last refill until next appointment albuterol sulfate 2.5 mg /3 mL (0.083 %) solution for nebulization 2.5 mg inhalation QID PRN (Reason: shortness of breath or wheezing) Qty: 180 3RF prednisone 5 mg tablet 5 mg PO DAILY tiotropium bromide 18 mcg Capsule, W/Inhalation Device 1 cap INHALATION DAILY Rx Instructions: puncture 1 cap using device; one dose = 2 inhalations azathioprine 50 mg tablet 50 mg PO DAILY Referrals: Kamaljit Frankel MD [Primary Care Provider] - Stand Alone Forms: Patient Portal/API ED Sign-out <John Stone MD - Last Filed: 03/29/24 21:10> Cosign ED Attending Maribethature Attestation: I was immediately available in the department for consultation. This documentation has been reviewed. John Stone MD
[2024-03-29 17:31] VITALS: BP 140/68; PULSE 77; RESP 18; O2SAT 97
== END 2024-03-29 17:33 | disposition home or self-care (01) ==
PROVIDERS: Emergency Provider Physician Assistant; Family Provider Internal Medicine; PCP Internal Medicine
DX: S01.01XA Laceration without foreign body of scalp, initial encounter (principal); S06.0X0A Concussion without loss of consciousness, initial encounter; S16.1XXA Strain of muscle, fascia and tendon at neck level, initial encounter; W17.89XA Other fall from one level to another, initial encounter
CPT/HCPCS: 12002; 70450; 72125; 99281; 99284

== ENCOUNTER → 2025-01-27 13:35 | Outpatient (CLI) | payer MEDICARE, MEDICAID, SELFPAY ==
[2024-01-18 13:24] VITALS: PULSE 81; RESP 16; O2SAT 99; BMI 23.0
[2025-01-27 14:53] LABS: Cholesterol 223 mg/dL (140-199); HDL Cholesterol 53 mg/dL (40-60); Triglycerides 235 mg/dL (35-150)
== END ==
PROVIDERS: PCP Internal Medicine; Referring Provider Internal Medicine Cardiovascular Disease; Visit Provider Internal Medicine Cardiovascular Disease
DX: I20.89 Other forms of angina pectoris (principal); Z00.00 Encounter for general adult medical examination without abnormal findings
CPT/HCPCS: 36415; 80061

== ENCOUNTER → 2025-02-27 12:12 | Outpatient (CLI) | payer MEDICARE, MEDICAID, SELFPAY ==
[2024-01-18 13:24] VITALS: PULSE 81; RESP 16; O2SAT 99; BMI 23.0
--- NOTE | 2025-02-27 12:14 | DI.ECHO.S_ITS ---
[place] [facility]+ [facility] : : [address] : : [place] : : [id number] : : Phone: [phone] Echocardiogram Report + + :Name: TOI ENG Study Date: 02/27/2025 Height: 63 in : :[facility] ReadingLocation: Weight: 118 lb : : Gender: Female BSA: 1.5 m2 : :: 1960 Age: 64 yrs BP: 108/69 mmHg: :Reason For Study: Angina : :Ordering Physician: JUANIS, : :DAVE Performed By: Dane Nascimento : :Referring: DAVE OLIVAREZ : + + Interpretation Summary The left ventricle is normal in size and wall thickness. The left ventricular ejection fraction is normal. Left ventricular ejection fraction is estimated to be 60 +/- 5%. Left ventricular global longitudinal strain average is -17.8%. There are no focal wall motion abnormalities. The right ventricle is normal in size and function. No significant valvular pathology seen. The IVC is of normal diameter and collapses greater than 50% with a sniff. This suggests a low right atrial pressure of 3 mm Hg. Procedure: A two-dimensional transthoracic echocardiogram with color flow and Doppler was performed. The study quality was technically adequate. There is no prior echocardiogram noted for this patient. The patient was in normal sinus rhythm during the exam. Left Ventricle: The left ventricle is normal in size and wall thickness. There is no thrombus. Left ventricular systolic function is normal. Left ventricular global longitudinal strain average is -17.8%. The left ventricular ejection fraction is normal. Left ventricular ejection fraction is estimated to be 60 +/- 5%. There are no focal wall motion abnormalities. MV E/A: 1.2 Med Peak E' Berny: 7.0 cm/sec E/E' med: 12.5. No significant diastolic dysfunction. Right Ventricle: The right ventricle is normal in size and function. Atria: The left atrial size is normal. Right atrial size is normal. There is no Doppler evidence for an interatrial shunt. Mitral Valve: The mitral valve leaflets appear to open well. There is mild mitral annular calcification. There is no mitral valve stenosis. There is trace mitral regurgitation. Aortic Valve: The aortic valve is trileaflet. The aortic valve opens well. There is no aortic valve stenosis. No aortic regurgitation is present. Tricuspid Valve: The tricuspid valve leaflets are thin and pliable. There is trace tricuspid regurgitation. Pulmonary artery pressures cannot be estimated because of the lack of a measurable TR jet velocity but the IVC suggests a CVP of around 3 mmHg. Pulmonic Valve: The pulmonic valve is not well seen, but is grossly normal. There is trace pulmonic regurgitation. Great Vessels: The aortic root is normal size. The ascending aorta is normal in size. The aortic arch could not be visualized. The IVC is of normal diameter and collapses greater than 50% with a sniff. This suggests a low right atrial pressure of 3 mm Hg. Pericardium/ Pleura There is no pericardial effusion. There is an anterior echo-free space consistent with a fat pad. MMode/2D Measurements & Calculations LVIDd: 4.5 cm LVOT diam: 2.0 cm LVIDs: 2.8 cm Ao root diam: 3.0 cm FS: 37.4 % asc Aorta Diam: 2.8 cm IVSd: 0.97 cm LVPWd: 1.0 cm LV amaro. diameter/BSA (cm/m^2): 2.9 LV sys. diameter/BSA (cm/m^2): 1.8 LA A2 area: 13.2 cm2 IVC diam: 2.1 cm LA A4 area: 12.3 cm2 LA length (vol): 4.8 cm LA vol: 28.8 ml LA vol index: 18.7 ml/m2 RVD1 (basal): 2.9 cm RVD2 (mid): 2.2 cm TAPSE: 2.0 cm Doppler Measurements & Calculations Ao V2 max: 129.6 cm/sec LVOT Max Berny: 103.6 cm/sec Ao V2 mean: 91.6 cm/sec LV V1 max P.3 mmHg Ao max P.7 mmHg LV V1 VTI: 21.6 cm Ao mean P.7 mmHg MATA(I,D): 2.3 cm2 Ao V2 VTI: 28.0 cm MATA(V,D): 2.4 cm2 sev ratio: 0.77 MATA indexed to BSA (cm^2/m^2): 1.5 MV E max berny: 88.3 cm/sec PA V2 max: 98.7 cm/sec MV A max berny: 73.2 cm/sec PA V2 mean: 73.9 cm/sec MV E/A: 1.2 PA mean P.4 mmHg Med Peak E' Berny: 7.0 cm/sec PA pr(Accel): 32.8 mmHg E/E' med: 12.5 Lat Peak E' Berny: 10.0 cm/sec E/E' lat: 8.8 E/e' average: 10.7 MV dec time: 0.20 sec SV(OT): 64.7 ml Reading Physician:03:42 PM
--- NOTE | 2025-02-27 17:31 | DI.NM.S_ITS ---
DATE OF SERVICE: 02/27/2025 PROCEDURE: Perfusion study. Please note this is a stress study only. RADIOPHARMACEUTICAL: 26.3 millicurie technetium-99m Myoview IV was injected at stress. CARDIAC STRESS: The patient initially attempted walking on a treadmill. She walked on David protocol for only 2 minutes and developed shortness of breath. Unable to walk. 4.6 METS of workload. VLADIMIR positive 66%. 83% of target heart rate with maximum heart rate 130 and blood pressure increased from 115/70 baseline to 122/72. The patient felt fatigue and shortness of breath at that time as well as leg weakness. The patient got converted to Lexiscan. The patient received IV Lexiscan under the supervision of an attending staff as per protocol. After Lexiscan injection, the patient started having severe dyspnea, chest pain radiating up to the neck. On a scale of 1 to 10, it was seven in intensity. The patient become diaphoretic, pale, nauseated. The patient was given sublingual nitroglycerin, hence got slightly improved. Then she received second sublingual nitroglycerin which improved her chest pain. During exercise, the patient did not have any convincing ischemic changes and baseline rhythm was sinus with some repolarization changes. However, after Lexiscan in recovery around 3 to 5 minutes. The patient started having initially upsloping ST depression in inferior leads and 1 to 1.[address] depression in leads V3 to V6, which got more pronounced. Then, she developed about [address] elevation in AVR. With two sublingual nitroglycerin, ST-segment returned back to the baseline around 18 minutes in the recovery. Her chest pain got improved. RAW DATA: There is increased subdiaphragmatic activity. GATED STUDY: Stress LV ejection fraction 75% without any obvious wall motion abnormalities. Stress end-diastolic volume 104 mL. Lung/heart ratio 0.28. MYOCARDIAL PERFUSION SCAN: Please note, stress supine and stress prone images were compared to each other. Stress supine images revealed large size severely decreased perfusion of inferior wall extending into the inferior apex as well as inferoseptum, distal anteroseptum, distal anterior wall. During stress prone images, there is improvement in the base to mid inferior wall, however, the patient remained to have moderate to severely decreased perfusion of distal inferior wall, inferior apex, basal and distal inferoseptum, as well as distal anteroseptum and distal anterior wall. CONCLUSION: This is an abnormal myocardial perfusion study with moderate to severely decreased perfusion of distal anterior wall, distal inferior wall, inferior apex, basal and distal inferoseptum and distal anterior septum. There is no resting study, hence difficult to comment upon reversible versus fixed defect. The patient has abnormal stress EKG with significant ST depression as stated above after Lexiscan with prolonged recovery and required two sublingual nitroglycerin. The patient developed typical anginal pain. There was about [address] elevation in AVR which got resolved after nitroglycerin. Her chest pain got improved. EKG changes returned back to the baseline. I reviewed her echocardiogram which was done after this study, which showed preserved left ventricular function with LVEF around 60% without any obvious wall motion abnormalities. At this point of time, we will recommend treating as per coronary artery disease with guideline directed medical therapy as well as left heart catheterization in anticipation of revascularization. My midlevel Roseanna, who supervised the stress test would call patient to get started on aspirin. If there is no contraindication consider aspirin 325 mg daily, metoprolol succinate 25, atorvastatin 40 mg and sublingual nitroglycerine as needed. ER precautions would be conveyed to the patient. Message would be sent to her regular event lighting specialist, Dr. Smallwood, to see her as soon as possible and plan left heart catheterization. In the interim, if the patient starts having resting chest pain, to call 911 and come to the emergency room. Jacquelyn Dotson - LILI/nicky/OSWALDO doc#: [id number]/job#: [id number] dd: 02/27/2025 16:12:00 dt: 02/27/2025 16:18:00 DICTATING MD/COPIES TO: Olinda Delgado MD; Dr. Smallwood COPIES MNE: VARGHESE; ; Dr. Smallwood
== END ==
LOC: NUCM 12:13
PROVIDERS: PCP Internal Medicine; Referring Provider Internal Medicine Cardiovascular Disease; Visit Provider Internal Medicine Cardiovascular Disease
DX: I20.89 Other forms of angina pectoris (principal); I34.81 Nonrheumatic mitral (valve) annulus calcification; R94.39 Abnormal result of other cardiovascular function study; R06.09 Other forms of dyspnea
CPT/HCPCS: 78451; 93017; 93306; 93356; A9502; J2785